=== PATIENT | male | born 1960 | race Caucasian/White ===

== ENCOUNTER 2016-06-17 22:02 | Inpatient (IN) | payer MEDICAID ==
[~2016-06-17] VITALS: Ht 177.8 cm; Wt 86.2 kg
[~2016-06-17 22:02] MED LIST: DOCU250C91 PO; LITH300C3 PO; SERT100T12 PO
[2016-06-17] MEDS ORDERED: MAG HYDROX/AL HYDROX/SIMETH ES 30 ML SUSPENSION UDCUP PO PRN (22:45)
[2016-06-17] MEDS ORDERED: MAGNESIUM HYDROXIDE SUSPENSION 30 ML UDCUP PO PRN (22:45)
[2016-06-17] MEDS ORDERED: HALOPERIDOL 5 MG TABLET PO PRN (22:45)
[2016-06-17] MEDS ORDERED: ACETAMINOPHEN 325 MG TABLET PO PRN (22:45)
[2016-06-17 22:55] LABS: BASOPHILS % (AUTO) 0.8 % (0.0-2.0); EOSINOPHILS % (AUTO) 1.6 % (1.0-6.0); HEMATOCRIT 44.4 % (41-53); HEMOGLOBIN 15.1 g/dL (13.5-17.5); LYMPHOCYTES # (AUTO) 2.2 K/uL (1.0-4.8); LYMPHOCYTES % (AUTO) 22.8 % (22.0-44.0); MEAN CORPUSCULAR VOLUME 88 fL (80-100); MONOCYTES # (AUTO) 0.8 K/uL (0.1-1.0); MONOCYTES % (AUTO) 8.7 % (2.0-9.0); NEUTROPHILS # (AUTO) 6.3 K/uL (1.8-7.7); NEUTROPHILS % (AUTO) 66.1 % (40.0-70.0); PLATELET COUNT (AUTO) 281 K/uL (150-450); RED BLOOD CELL COUNT(AUTO) 5.03 MIL/uL (4.50-5.90); RED CELL DISTRIBUTION WIDTH 12.4 % (11.5-14.5); WHITE BLOOD COUNT (AUTO) 9.5 K/uL (4.5-11.0)
[2016-06-17 23:05] LABS: ANION GAP 6 mmol/L (8-16); CALCIUM, TOTAL 8.3 mg/dL (8.8-10.5); CARBON DIOXIDE 30 mmol/L (22-29); CHLORIDE 99 mmol/L (98-107); CREATININE 1.08 mg/dL (0.60-1.30); GLOMERULAR FILTR. RATE CALC > 60 mL/min (>60); POTASSIUM 3.8 mmol/L (3.5-5.1); SODIUM SERUM 135 mmol/L (136-145); UREA NITROGEN, BLOOD 27 mg/dL (7-18)
[2016-06-17 23:10] LABS: ALANINE AMINOTRANSFERASE 21 U/L (12-78); ASPARTATE AMINOTRANSFERASE 12 U/L (15-37); BILIRUBIN,TOTAL 0.2 mg/dL (0.1-1.0); TOTAL PROTEIN, SERUM 6.9 g/dL (6.4-8.2)
[2016-06-17 23:11] LABS: ALBUMIN 3.8 g/dL (3.4-5.0)
[2016-06-17 23:21] LABS: LITHIUM < 0.20 mmol/L (0.60-1.20)
[2016-06-18 00:45] VITALS: BP 146/85
[2016-06-18] MEDS: ZOLPIDEM TARTRATE 10 MG TABLET PO PRN ×2 (01:06→23:42)
[2016-06-18 08:01] VITALS: BP 113/82
[2016-06-18] MEDS: LORazepam 2 MG TABLET PO PRN ×2 (13:40→22:06)
[2016-06-18 16:17] VITALS: BP 106/69
[2016-06-19 10:10] VITALS: BP 119/82
[2016-06-19] MEDS: LORazepam 2 MG TABLET PO PRN ×2 (13:12→21:10)
[2016-06-19] MEDS: LITHIUM CARBONATE 300 MG CAPSULE PO SCH (17:19)
[2016-06-19 18:03] VITALS: BP 123/78
[2016-06-19] MEDS: OLANZapine 10 MG TABLET PO SCH (20:25)
[2016-06-19] MEDS: ZOLPIDEM TARTRATE 10 MG TABLET PO PRN (23:55)
[2016-06-20 00:05] VITALS: BP 123/80
[2016-06-20] MEDS: LORazepam 2 MG TABLET PO PRN ×3 (09:17→21:11)
[2016-06-20] MEDS: LITHIUM CARBONATE 300 MG CAPSULE PO SCH ×2 (09:18→16:29)
[2016-06-20] MEDS: SERTRALINE HCL 100 MG TABLET PO SCH (09:18)
[2016-06-20 09:24] VITALS: BP 129/71
[2016-06-20 16:06] VITALS: BP 116/80
[2016-06-20] MEDS: OLANZapine 10 MG TABLET PO SCH (20:09)
[2016-06-20] MEDS: ZOLPIDEM TARTRATE 10 MG TABLET PO PRN (22:30)
[2016-06-21 08:00] VITALS: BP 106/65
[2016-06-21] MEDS: LORazepam 2 MG TABLET PO PRN ×3 (08:59→22:30)
[2016-06-21] MEDS: LITHIUM CARBONATE 300 MG CAPSULE PO SCH ×2 (08:59→16:35)
[2016-06-21] MEDS: SERTRALINE HCL 100 MG TABLET PO SCH (08:59)
[2016-06-21] MEDS: MULTIVITAMINS WITH MINERALS, THERAPEUTIC TABLET PO SCH (08:59)
[2016-06-21 16:45] VITALS: BP 125/77
[2016-06-21] MEDS: OLANZapine 10 MG TABLET PO SCH (20:22)
[2016-06-21] MEDS: ZOLPIDEM TARTRATE 10 MG TABLET PO PRN (23:44)
[2016-06-22] VITALS: BP 118/79
[2016-06-22] MEDS: LITHIUM CARBONATE 300 MG CAPSULE PO SCH (09:11)
[2016-06-22] MEDS: SERTRALINE HCL 100 MG TABLET PO SCH (09:11)
[2016-06-22] MEDS: LORazepam 2 MG TABLET PO PRN (09:11)
[2016-06-22] MEDS: MULTIVITAMINS WITH MINERALS, THERAPEUTIC TABLET PO SCH (09:11)
[2016-06-22 09:47] VITALS: BP 133/65
[2016-06-22] MEDS ORDERED: OLAN10TA3 PO (10:42)
[2016-06-22] MEDS ORDERED: MV-M1TAB2 PO (10:44)
== END 2016-06-22 14:17 | disposition home or self-care (01) | DRG 750 ==
LOC: EMS 22:03 → 3EI 22:30
PROVIDERS: ADMIT Psychiatry & Neurology Psychiatry; ATTEND Psychiatry & Neurology Psychiatry
DX: F25.9 Schizoaffective disorder, unspecified (principal); R45.851 Suicidal ideations; I10 Essential (primary) hypertension; B86 Scabies; F12.90 Cannabis use, unspecified, uncomplicated; E78.5 Hyperlipidemia, unspecified; A60.00 Herpesviral infection of urogenital system, unspecified; F19.90 Other psychoactive substance use, unspecified, uncomplicated; B19.20 Unspecified viral hepatitis C without hepatic coma; F31.9 Bipolar disorder, unspecified; K21.9 Gastro-esophageal reflux disease without esophagitis; K59.00 Constipation, unspecified; Z87.891 Personal history of nicotine dependence; Z79.899 Other long term (current) drug therapy; Z98.890 Other specified postprocedural states; Z87.81 Personal history of (healed) traumatic fracture
CPT/HCPCS: 99285; G0480

== ENCOUNTER 2016-07-07 20:17 | Inpatient (IN) | payer MEDICAID ==
[~2016-07-07] VITALS: Ht 175.3 cm; Wt 86.4 kg
[~2016-07-07 20:17] MED LIST changes: -DOCU250C91 PO; +MV-M1TAB2 PO; +OLAN10TA3 PO
[2016-07-07 21:00] LABS: BASOPHILS % (AUTO) 0.7 % (0.0-2.0); HEMATOCRIT 40.8 % (41-53); HEMOGLOBIN 13.5 g/dL (13.5-17.5); LYMPHOCYTES % (AUTO) 23.8 % (22.0-44.0); MEAN CORPUSCULAR HEMOGLOBIN 29.3 pg (26.0-34.0); MEAN CORPUSCULAR HGB CONC 33.2 G/dL (31.0-37.0); MEAN CORPUSCULAR VOLUME 88 fL (80-100); MONOCYTES # (AUTO) 0.6 K/uL (0.1-1.0); MONOCYTES % (AUTO) 6.8 % (2.0-9.0); NEUTROPHILS # (AUTO) 5.5 K/uL (1.8-7.7); NEUTROPHILS % (AUTO) 66.7 % (40.0-70.0); PLATELET COUNT (AUTO) 293 K/uL (150-450); RED BLOOD CELL COUNT(AUTO) 4.61 MIL/uL (4.50-5.90); RED CELL DISTRIBUTION WIDTH 12.7 % (11.5-14.5); WHITE BLOOD COUNT (AUTO) 8.3 K/uL (4.5-11.0)
[2016-07-07 21:20] LABS: ANION GAP 6 mmol/L (8-16); CALCIUM, TOTAL 8.7 mg/dL (8.8-10.5); CARBON DIOXIDE 31 mmol/L (22-29); CHLORIDE 102 mmol/L (98-107); CREATININE 0.96 mg/dL (0.60-1.30); GLOMERULAR FILTR. RATE CALC > 60 mL/min (>60); POTASSIUM 3.4 mmol/L (3.5-5.1); SODIUM SERUM 139 mmol/L (136-145); UREA NITROGEN, BLOOD 19 mg/dL (7-18)
[2016-07-07 21:26] LABS: ALANINE AMINOTRANSFERASE 22 U/L (12-78); ALBUMIN 3.4 g/dL (3.4-5.0); ASPARTATE AMINOTRANSFERASE 14 U/L (15-37); BILIRUBIN,TOTAL 0.1 mg/dL (0.1-1.0); TOTAL PROTEIN, SERUM 6.6 g/dL (6.4-8.2)
[2016-07-07] MEDS ORDERED: OLANZapine 5 MG RAPDIS TABLET PO PRN (21:45)
[2016-07-07] MEDS ORDERED: PERTUSS(ACELL),DIPH,TET VAC/PF 0.5 ML VIAL IM ONE (21:45)
[2016-07-08 00:33] VITALS: BP 131/83
[2016-07-08] MEDS: LORazepam 2 MG TABLET PO PRN ×3 (00:36→21:02)
[2016-07-08 08:30] VITALS: BP 111/71
[2016-07-08] MEDS: DOCUSATE SODIUM 250 MG CAPSULE PO SCH (17:03)
[2016-07-08] MEDS: NYSTATIN 30 GM CREAM TP SCH (17:09)
[2016-07-08 18:38] VITALS: BP 122/74
[2016-07-08] MEDS: SIMVASTATIN 40 MG TABLET PO SCH (20:48)
[2016-07-08] MEDS: ZOLPIDEM TARTRATE 10 MG TABLET PO PRN (23:25)
[2016-07-09 08:07] VITALS: BP 115/86
[2016-07-09] MEDS: LORazepam 2 MG TABLET PO PRN ×2 (08:50→20:58)
[2016-07-09] MEDS: DOCUSATE SODIUM 250 MG CAPSULE PO SCH ×2 (08:51→17:06)
[2016-07-09] MEDS: NYSTATIN 30 GM CREAM TP SCH ×2 (09:00→17:06)
[2016-07-09] MEDS ORDERED: SERTRALINE HCL 100 MG TABLET PO SCH (11:15)
[2016-07-09 16:46] VITALS: BP 110/69
[2016-07-09] MEDS: LITHIUM CARBONATE 300 MG CAPSULE PO SCH (17:06)
[2016-07-09] MEDS: ZOLPIDEM TARTRATE 10 MG TABLET PO PRN (20:58)
[2016-07-09] MEDS: OLANZapine 10 MG TABLET PO SCH (20:58)
[2016-07-09] MEDS: SIMVASTATIN 40 MG TABLET PO SCH (20:58)
[2016-07-10 08:07] VITALS: BP 102/56
[2016-07-10] MEDS: NYSTATIN 30 GM CREAM TP SCH ×2 (09:00→16:12)
[2016-07-10] MEDS: DOCUSATE SODIUM 250 MG CAPSULE PO SCH ×2 (10:26→16:12)
[2016-07-10] MEDS: LITHIUM CARBONATE 300 MG CAPSULE PO SCH ×2 (10:27→16:12)
[2016-07-10] MEDS: SERTRALINE HCL 50 MG TABLET PO SCH (10:27)
[2016-07-10] MEDS: LORazepam 2 MG TABLET PO PRN ×2 (10:28→17:09)
[2016-07-10] MEDS: OLANZapine 10 MG TABLET PO SCH (20:22)
[2016-07-10] MEDS: SIMVASTATIN 40 MG TABLET PO SCH (20:23)
[2016-07-10 21:45] VITALS: BP 106/64
[2016-07-10] MEDS: ZOLPIDEM TARTRATE 10 MG TABLET PO PRN (21:54)
[2016-07-11] MEDS: DOCUSATE SODIUM 250 MG CAPSULE PO SCH ×2 (08:15→16:26)
[2016-07-11] MEDS: NYSTATIN 30 GM CREAM TP SCH ×2 (08:15→16:30)
[2016-07-11] MEDS: LITHIUM CARBONATE 300 MG CAPSULE PO SCH ×2 (08:15→16:26)
[2016-07-11] MEDS: SERTRALINE HCL 50 MG TABLET PO SCH (08:15)
[2016-07-11] MEDS: LORazepam 2 MG TABLET PO PRN ×2 (08:16→20:12)
[2016-07-11 10:20] VITALS: BP 133/74
[2016-07-11 16:49] VITALS: BP 104/64
[2016-07-11] MEDS: OLANZapine 10 MG TABLET PO SCH (20:11)
[2016-07-11] MEDS: SIMVASTATIN 40 MG TABLET PO SCH (20:11)
[2016-07-12] MEDS: SERTRALINE HCL 50 MG TABLET PO SCH (08:44)
[2016-07-12] MEDS: LITHIUM CARBONATE 300 MG CAPSULE PO SCH ×2 (08:45→16:27)
[2016-07-12] MEDS: DOCUSATE SODIUM 250 MG CAPSULE PO SCH ×2 (08:45→16:26)
[2016-07-12] MEDS: NYSTATIN 30 GM CREAM TP SCH ×2 (08:50→16:27)
[2016-07-12] MEDS: LORazepam 2 MG TABLET PO PRN ×3 (08:51→22:41)
[2016-07-12 10:02] VITALS: BP 112/67
[2016-07-12 17:03] VITALS: BP 120/71
[2016-07-12] MEDS: OLANZapine 10 MG TABLET PO SCH (21:00)
[2016-07-12] MEDS: SIMVASTATIN 40 MG TABLET PO SCH (21:20)
[2016-07-13] MEDS: SERTRALINE HCL 50 MG TABLET PO SCH (08:33)
[2016-07-13] MEDS: LITHIUM CARBONATE 300 MG CAPSULE PO SCH ×2 (08:33→17:24)
[2016-07-13] MEDS: DOCUSATE SODIUM 250 MG CAPSULE PO SCH ×2 (08:33→17:24)
[2016-07-13] MEDS: LORazepam 2 MG TABLET PO PRN ×3 (08:35→21:58)
[2016-07-13 12:01] VITALS: BP 122/84
[2016-07-13] MEDS: NYSTATIN 30 GM CREAM TP SCH ×2 (14:08→17:24)
[2016-07-13 16:47] VITALS: BP 124/68
[2016-07-13] MEDS: OLANZapine 10 MG TABLET PO SCH (21:00)
[2016-07-13] MEDS: SIMVASTATIN 40 MG TABLET PO SCH (21:21)
[2016-07-13] MEDS: ZOLPIDEM TARTRATE 10 MG TABLET PO PRN (22:54)
[2016-07-14] MEDS ORDERED: DOCU250C91 PO (09:02)
[2016-07-14] MEDS ORDERED: NYST15CR2 TP (09:05)
[2016-07-14] MEDS ORDERED: SIMV-261 PO (09:06)
[2016-07-14] MEDS: DOCUSATE SODIUM 250 MG CAPSULE PO SCH (09:06)
[2016-07-14] MEDS: LITHIUM CARBONATE 300 MG CAPSULE PO SCH (09:07)
[2016-07-14] MEDS: SERTRALINE HCL 50 MG TABLET PO SCH (09:08)
[2016-07-14] MEDS: LORazepam 2 MG TABLET PO PRN (09:08)
[2016-07-14] MEDS: NYSTATIN 30 GM CREAM TP SCH (09:09)
[2016-07-14 10:17] VITALS: BP 123/81
== END 2016-07-14 13:44 | disposition home or self-care (01) | DRG 750 ==
LOC: EEVIPCON 20:19 → EMS 20:19 → 3EI 22:47
PROVIDERS: ADMIT Psychiatry & Neurology Psychiatry; ATTEND Psychiatry & Neurology Psychiatry
DX: F25.9 Schizoaffective disorder, unspecified (principal); F22 Delusional disorders; I10 Essential (primary) hypertension; F32.9 Major depressive disorder, single episode, unspecified; B35.3 Tinea pedis; F12.90 Cannabis use, unspecified, uncomplicated; F15.90 Other stimulant use, unspecified, uncomplicated; K21.9 Gastro-esophageal reflux disease without esophagitis; E78.5 Hyperlipidemia, unspecified; B19.20 Unspecified viral hepatitis C without hepatic coma; Z86.19 Personal history of other infectious and parasitic diseases; Z79.52 Long term (current) use of systemic steroids
CPT/HCPCS: 87081; 90471; 90715; 99285; G0480

== ENCOUNTER 2016-07-17 08:08 | Inpatient (IN) | payer MEDICAID ==
[~2016-07-17] VITALS: Ht 177.8 cm; Wt 85.7 kg
[~2016-07-17 08:08] MED LIST changes: +DOCU250C91 PO; -MV-M1TAB2 PO; +NYST15CR2 TP; +SIMV-261 PO
[2016-07-17 08:30] LABS: BASOPHILS # (AUTO) 0.04 K/uL (0.00-0.20); BASOPHILS % (AUTO) 0.5 % (0.0-2.0); EOSINOPHILS # (AUTO) 0.07 K/uL (0.00-0.70); EOSINOPHILS % (AUTO) 0.95 % (1.0-6.0); HEMOGLOBIN 15.6 g/dL (13.5-17.5); LYMPHOCYTES # (AUTO) 1.3 K/uL (1.0-4.8); LYMPHOCYTES % (AUTO) 16.9 % (22.0-44.0); MEAN CORPUSCULAR HEMOGLOBIN 29.7 pg (26.0-34.0); MEAN CORPUSCULAR HGB CONC 33.8 G/dL (31.0-37.0); MEAN CORPUSCULAR VOLUME 88 fL (80-100); MONOCYTES # (AUTO) 0.4 K/uL (0.1-1.0); MONOCYTES % (AUTO) 5.8 % (2.0-9.0); NEUTROPHILS # (AUTO) 5.8 K/uL (1.8-7.7); NEUTROPHILS % (AUTO) 75.9 % (40.0-70.0); PLATELET COUNT (AUTO) 271 K/uL (150-450); RED BLOOD CELL COUNT(AUTO) 5.24 MIL/uL (4.50-5.90); RED CELL DISTRIBUTION WIDTH 12.9 % (11.5-14.5); WHITE BLOOD COUNT (AUTO) 7.7 K/uL (4.5-11.0)
[2016-07-17 08:51] LABS: LITHIUM < 0.20 mmol/L (0.60-1.20)
[2016-07-17 08:53] LABS: ANION GAP 6 mmol/L (8-16); CALCIUM, TOTAL 8.7 mg/dL (8.8-10.5); CARBON DIOXIDE 31 mmol/L (22-29); CHLORIDE 104 mmol/L (98-107); CREATININE 0.97 mg/dL (0.60-1.30); GLOMERULAR FILTR. RATE CALC > 60 mL/min (>60); POTASSIUM 4.3 mmol/L (3.5-5.1); SODIUM SERUM 141 mmol/L (136-145); UREA NITROGEN, BLOOD 18 mg/dL (7-18)
[2016-07-17 08:56] LABS: ALANINE AMINOTRANSFERASE 29 U/L (12-78); ALBUMIN 3.9 g/dL (3.4-5.0); ASPARTATE AMINOTRANSFERASE 16 U/L (15-37); BILIRUBIN,TOTAL 0.6 mg/dL (0.1-1.0); TOTAL PROTEIN, SERUM 7.1 g/dL (6.4-8.2)
[2016-07-17] MEDS ORDERED: HALOPERIDOL 5 MG TABLET PO PRN (09:00)
[2016-07-17 10:08] VITALS: BP 135/84
[2016-07-17] MEDS: LORazepam 2 MG TABLET PO PRN ×2 (12:33→20:51)
[2016-07-17] MEDS: DOCUSATE SODIUM 250 MG CAPSULE PO SCH (16:00)
[2016-07-17 16:19] VITALS: BP 128/74
[2016-07-17] MEDS: SIMVASTATIN 40 MG TABLET PO SCH (20:18)
[2016-07-18 08:00] VITALS: BP 133/81
[2016-07-18] MEDS: DOCUSATE SODIUM 250 MG CAPSULE PO SCH ×2 (08:52→16:39)
[2016-07-18] MEDS: LORazepam 2 MG TABLET PO PRN ×2 (08:52→16:55)
[2016-07-18] MEDS: LITHIUM CARBONATE 300 MG CAPSULE PO SCH (17:47)
[2016-07-18 18:49] VITALS: BP 116/60
[2016-07-18] MEDS: SIMVASTATIN 40 MG TABLET PO SCH (20:43)
[2016-07-18] MEDS: OLANZapine 10 MG TABLET PO SCH (21:00)
[2016-07-19] MEDS: LORazepam 2 MG TABLET PO PRN ×3 (02:42→20:12)
[2016-07-19] MEDS: ZOLPIDEM TARTRATE 10 MG TABLET PO PRN ×2 (02:42→21:31)
[2016-07-19 04:20] VITALS: BP 120/75
[2016-07-19 08:00] VITALS: BP 127/77
[2016-07-19] MEDS: DOCUSATE SODIUM 250 MG CAPSULE PO SCH ×2 (09:00→16:04)
[2016-07-19] MEDS: LITHIUM CARBONATE 300 MG CAPSULE PO SCH ×2 (09:13→16:04)
[2016-07-19] MEDS: SERTRALINE HCL 50 MG TABLET PO SCH (09:13)
[2016-07-19 16:30] VITALS: BP 119/80
[2016-07-19] MEDS: SIMVASTATIN 40 MG TABLET PO SCH (20:12)
[2016-07-19] MEDS: OLANZapine 10 MG TABLET PO SCH (20:12)
[2016-07-20] MEDS: LORazepam 2 MG TABLET PO PRN ×2 (05:52→11:02)
[2016-07-20] MEDS: LITHIUM CARBONATE 300 MG CAPSULE PO SCH (08:51)
[2016-07-20] MEDS: SERTRALINE HCL 50 MG TABLET PO SCH (08:51)
[2016-07-20 08:59] VITALS: BP 120/83
[2016-07-20] MEDS: DOCUSATE SODIUM 250 MG CAPSULE PO SCH (09:00)
[2016-07-20] MEDS ORDERED: LITH300C3 PO (12:42)
[2016-07-20] MEDS ORDERED: OLAN10TA3 PO (12:43)
[2016-07-20] MEDS ORDERED: DOCU250C91 PO (13:30)
[2016-07-20] MEDS ORDERED: SIMV-261 PO (13:30)
== END 2016-07-20 13:47 | disposition home or self-care (01) | DRG 750 ==
LOC: EMS 08:10 → 3EI 09:48
PROVIDERS: ADMIT Psychiatry & Neurology Psychiatry; ATTEND Psychiatry & Neurology Psychiatry
DX: F25.9 Schizoaffective disorder, unspecified (principal); R45.851 Suicidal ideations; F32.9 Major depressive disorder, single episode, unspecified; B19.20 Unspecified viral hepatitis C without hepatic coma; F12.90 Cannabis use, unspecified, uncomplicated; E78.5 Hyperlipidemia, unspecified; K21.9 Gastro-esophageal reflux disease without esophagitis; K59.00 Constipation, unspecified; Z91.5 Personal history of self-harm; Z79.899 Other long term (current) drug therapy
CPT/HCPCS: 87081; 99285; G0480

== ENCOUNTER 2016-08-30 22:44 | Inpatient (IN) | payer MEDICAID ==
[~2016-08-30] VITALS: Ht 177.8 cm; Wt 84.0 kg
[~2016-08-30 22:44] MED LIST changes: -NYST15CR2 TP; -SIMV-261 PO; +SIMV40 PO
[2016-08-30] MEDS ORDERED: DIAZ10 PO (23:05)
[2016-08-30 23:19] LABS: BASOPHILS % (AUTO) 0.1 % (0.0-2.0); EOSINOPHILS % (AUTO) 1.2 % (1.0-6.0); HEMATOCRIT 40.8 % (41-53); HEMOGLOBIN 13.5 g/dL (13.5-17.5); LYMPHOCYTES # (AUTO) 1.6 K/uL (1.0-4.8); MEAN CORPUSCULAR VOLUME 88 fL (80-100); MONOCYTES # (AUTO) 0.6 K/uL (0.1-1.0); NEUTROPHILS # (AUTO) 11.9 K/uL (1.8-7.7); NEUTROPHILS % (AUTO) 83.7 % (40.0-70.0); PLATELET COUNT (AUTO) 303 K/uL (150-450); RED BLOOD CELL COUNT(AUTO) 4.63 MIL/uL (4.50-5.90); RED CELL DISTRIBUTION WIDTH 12.7 % (11.5-14.5); WHITE BLOOD COUNT (AUTO) 14.2 K/uL (4.5-11.0)
[2016-08-30 23:34] LABS: ANION GAP 6 mmol/L (8-16); CALCIUM, TOTAL 8.4 mg/dL (8.8-10.5); CARBON DIOXIDE 30 mmol/L (22-29); CHLORIDE 102 mmol/L (98-107); CREATININE 0.92 mg/dL (0.60-1.30); GLOMERULAR FILTR. RATE CALC > 60 mL/min (>60); POTASSIUM 3.6 mmol/L (3.5-5.1); SODIUM SERUM 138 mmol/L (136-145); UREA NITROGEN, BLOOD 19 mg/dL (7-18)
[2016-08-30 23:41] LABS: ALANINE AMINOTRANSFERASE 19 U/L (12-78); ALBUMIN 3.3 g/dL (3.4-5.0); ASPARTATE AMINOTRANSFERASE 15 U/L (15-37); BILIRUBIN,TOTAL 0.2 mg/dL (0.1-1.0); TOTAL PROTEIN, SERUM 6.4 g/dL (6.4-8.2)
[2016-08-31 00:10] LABS: LITHIUM < 0.20 mmol/L (0.60-1.20)
[2016-08-31] MEDS ORDERED: LORazepam 2 MG TABLET PO ONE (01:00)
[2016-08-31] MEDS ORDERED: HALOPERIDOL 5 MG TABLET PO PRN (01:30)
[2016-08-31 02:29] LABS: APPEARANCE,URINE CLEAR (CLEAR); GLUCOSE, URINE (UA) NEGATIVE (NEGATIVE); KETONES,URINE NEGATIVE (NEGATIVE); LEUKOCYTE ESTERASE ,URINE NEGATIVE (NEGATIVE); OCCULT BLOOD,URINE NEGATIVE (NEGATIVE); PH,URINE 5.5 (5.0-8.0); PROTEIN,URINE NEGATIVE (NEGATIVE)
[2016-08-31 02:40] LABS: ADD UA MICROSCOPIC NO
[2016-08-31 03:13] VITALS: BP 138/75
[2016-08-31 05:54] VITALS: BP 106/51
[2016-08-31] MEDS: DOCUSATE SODIUM 250 MG CAPSULE PO SCH (09:18)
[2016-08-31] MEDS: SERTRALINE HCL 50 MG TABLET PO SCH (09:19)
[2016-08-31 16:13] VITALS: BP_SYST 105; BP_SYST 115; BP_DIAS 65
[2016-08-31] MEDS ORDERED: ACETAMINOPHEN 325 MG TABLET PO PRN (16:15)
[2016-08-31] MEDS ORDERED: GuaiFENesin/D-METHORPHAN [SUGAR-FREE] 200-20MG/10 ML SYRUP UDCUP PO PRN (16:15)
[2016-08-31] MEDS ORDERED: AZITHROMYCIN 250 MG TABLET PO ONE (21:00)
[2016-08-31] MEDS: LORazepam 2 MG TABLET PO PRN (21:01)
[2016-09-01 07:18] VITALS: BP 109/70
[2016-09-01 08:33] VITALS: BP 108/68
[2016-09-01] MEDS: DOCUSATE SODIUM 250 MG CAPSULE PO SCH ×2 (09:00→09:46)
[2016-09-01] MEDS: AZITHROMYCIN 250 MG TABLET PO SCH (09:46)
[2016-09-01] MEDS: SERTRALINE HCL 50 MG TABLET PO SCH (09:46)
[2016-09-01] MEDS: LORazepam 2 MG TABLET PO PRN ×3 (11:01→21:43)
[2016-09-01] MEDS ORDERED: DOCUSATE SODIUM 250 MG CAPSULE PO PRN (11:30)
[2016-09-01] MEDS: LOPERAMIDE HCL 2 MG CAPSULE PO PRN ×2 (13:30→16:19)
[2016-09-01 16:17] VITALS: BP_SYST 112; BP_SYST 117; BP_DIAS 65; BP_DIAS 74
[2016-09-02 07:24] VITALS: BP 114/79
[2016-09-02] MEDS: AZITHROMYCIN 250 MG TABLET PO SCH (09:14)
[2016-09-02] MEDS: SERTRALINE HCL 50 MG TABLET PO SCH (09:15)
[2016-09-02 10:24] VITALS: BP 108/66
[2016-09-02] MEDS: LORazepam 2 MG TABLET PO PRN ×2 (13:02→21:15)
[2016-09-02 16:30] VITALS: BP 125/77
[2016-09-03] MEDS: ZOLPIDEM TARTRATE 10 MG TABLET PO PRN ×2 (00:15→22:53)
[2016-09-03 00:37] VITALS: BP 105/69
[2016-09-03 08:59] VITALS: BP 102/66
[2016-09-03] MEDS: AZITHROMYCIN 250 MG TABLET PO SCH (09:12)
[2016-09-03] MEDS: SERTRALINE HCL 50 MG TABLET PO SCH (09:12)
[2016-09-03] MEDS: LORazepam 2 MG TABLET PO PRN (11:31)
[2016-09-03 16:00] VITALS: BP 106/64
[2016-09-03] MEDS ORDERED: HYPROMELLOSE 0.5% 15 ML OPHTHALMIC SOLUTION OU PRN (16:00)
[2016-09-04 00:21] VITALS: BP 111/68
[2016-09-04] MEDS: LORazepam 2 MG TABLET PO PRN ×3 (00:33→21:53)
[2016-09-04] MEDS: SERTRALINE HCL 50 MG TABLET PO SCH (09:23)
[2016-09-04] MEDS: AZITHROMYCIN 250 MG TABLET PO SCH (09:23)
[2016-09-04 09:31] VITALS: BP 108/63
[2016-09-04 16:00] VITALS: BP 100/68
[2016-09-05 00:05] VITALS: BP 110/60
[2016-09-05] MEDS: ZOLPIDEM TARTRATE 10 MG TABLET PO PRN (00:07)
[2016-09-05 08:43] VITALS: BP 103/57
[2016-09-05] MEDS: SERTRALINE HCL 50 MG TABLET PO SCH (09:27)
[2016-09-05] MEDS ORDERED: PILO1OS OP (09:47)
[2016-09-05] MEDS ORDERED: HYPR15DR23 OU (09:55)
== END 2016-09-05 11:45 | disposition home or self-care (01) | DRG 750 ==
LOC: EMS 22:45 → B2S 08-31 01:30
DX: F25.1 Schizoaffective disorder, depressive type (principal); B00.9 Herpesviral infection, unspecified; R45.851 Suicidal ideations; I10 Essential (primary) hypertension; J44.9 Chronic obstructive pulmonary disease, unspecified; F12.90 Cannabis use, unspecified, uncomplicated; B19.20 Unspecified viral hepatitis C without hepatic coma; K21.9 Gastro-esophageal reflux disease without esophagitis; E78.00 Pure hypercholesterolemia, unspecified; Z72.89 Other problems related to lifestyle; N40.0 Benign prostatic hyperplasia without lower urinary tract symptoms; K59.00 Constipation, unspecified; E78.5 Hyperlipidemia, unspecified; Z53.29 Procedure and treatment not carried out because of patient's decision for other reasons; Z59.0 Homelessness; Z79.899 Other long term (current) drug therapy; Z91.5 Personal history of self-harm; Z71.51 Drug abuse counseling and surveillance of drug abuser; F15.90 Other stimulant use, unspecified, uncomplicated
CPT/HCPCS: 99285; G0480

== ENCOUNTER 2016-09-13 02:53 | Inpatient (IN) | payer MEDICAID ==
[~2016-09-13] VITALS: Ht 180.3 cm; Wt 82.5 kg
[~2016-09-13 02:53] MED LIST changes: -DOCU250C91 PO; +HYPR15DR23 OU; -LITH300C3 PO; -OLAN10TA3 PO; -SIMV40 PO
[2016-09-13] MEDS ORDERED: DIAZ10 PO (03:11)
[2016-09-13 03:31] LABS: BASOPHILS # (AUTO) 0.04 K/uL (0.00-0.20); BASOPHILS % (AUTO) 0.6 % (0.0-2.0); EOSINOPHILS # (AUTO) 0.16 K/uL (0.00-0.70); HEMATOCRIT 43.1 % (41-53); HEMOGLOBIN 14.5 g/dL (13.5-17.5); LYMPHOCYTES # (AUTO) 1.9 K/uL (1.0-4.8); LYMPHOCYTES % (AUTO) 24.1 % (22.0-44.0); MEAN CORPUSCULAR HEMOGLOBIN 29.3 pg (26.0-34.0); MEAN CORPUSCULAR HGB CONC 33.7 G/dL (31.0-37.0); MEAN CORPUSCULAR VOLUME 87 fL (80-100); MONOCYTES # (AUTO) 0.6 K/uL (0.1-1.0); MONOCYTES % (AUTO) 6.9 % (2.0-9.0); NEUTROPHILS # (AUTO) 5.4 K/uL (1.8-7.7); NEUTROPHILS % (AUTO) 66.5 % (40.0-70.0); PLATELET COUNT (AUTO) 311 K/uL (150-450); RED BLOOD CELL COUNT(AUTO) 4.95 MIL/uL (4.50-5.90); RED CELL DISTRIBUTION WIDTH 13.5 % (11.5-14.5)
[2016-09-13 03:33] LABS: ANION GAP 8 mmol/L (8-16); CALCIUM, TOTAL 8.8 mg/dL (8.8-10.5); CARBON DIOXIDE 32 mmol/L (22-29); CHLORIDE 103 mmol/L (98-107); CREATININE 0.89 mg/dL (0.60-1.30); GLOMERULAR FILTR. RATE CALC > 60 mL/min (>60); POTASSIUM 3.6 mmol/L (3.5-5.1); SODIUM SERUM 143 mmol/L (136-145); UREA NITROGEN, BLOOD 21 mg/dL (7-18)
[2016-09-13 03:40] LABS: ALANINE AMINOTRANSFERASE 25 U/L (12-78); ALBUMIN 3.6 g/dL (3.4-5.0); ASPARTATE AMINOTRANSFERASE 15 U/L (15-37); BILIRUBIN,TOTAL 0.4 mg/dL (0.1-1.0); TOTAL PROTEIN, SERUM 7.1 g/dL (6.4-8.2)
[2016-09-13] MEDS: HALOPERIDOL LACTATE 5 MG/ML VIAL IM ONE ×2 (05:26→05:56)
[2016-09-13] MEDS ORDERED: LORazepam 2 MG TABLET PO PRN (06:45)
[2016-09-13] MEDS ORDERED: HALOPERIDOL 5 MG TABLET PO PRN (06:45)
[2016-09-13] MEDS ORDERED: QUEtiapine FUMARATE 25 MG TABLET PO PRN (10:00)
[2016-09-13 10:44] VITALS: BP 124/80
[2016-09-13] MEDS: SERTRALINE HCL 100 MG TABLET PO SCH (12:17)
[2016-09-13 18:01] VITALS: BP 128/76
[2016-09-13] MEDS: ZOLPIDEM TARTRATE 10 MG TABLET PO PRN (21:00)
[2016-09-14 08:02] VITALS: BP_SYST 18
[2016-09-14] MEDS: SERTRALINE HCL 100 MG TABLET PO SCH (09:16)
[2016-09-14] MEDS: DOCUSATE SODIUM 250 MG CAPSULE PO SCH (16:10)
[2016-09-14 16:40] VITALS: BP 121/76
[2016-09-14] MEDS: SIMVASTATIN 40 MG TABLET PO SCH (20:30)
[2016-09-14] MEDS: ZOLPIDEM TARTRATE 10 MG TABLET PO PRN (21:46)
[2016-09-15 08:30] VITALS: BP 116/75
[2016-09-15] MEDS: DOCUSATE SODIUM 250 MG CAPSULE PO SCH ×2 (09:00→16:39)
[2016-09-15] MEDS: SERTRALINE HCL 100 MG TABLET PO SCH (09:18)
[2016-09-15 16:55] VITALS: BP 126/70
[2016-09-15] MEDS: ZOLPIDEM TARTRATE 10 MG TABLET PO PRN (21:02)
[2016-09-15] MEDS: SIMVASTATIN 40 MG TABLET PO SCH (21:02)
[2016-09-16 08:05] VITALS: BP 108/70
[2016-09-16] MEDS: DOCUSATE SODIUM 250 MG CAPSULE PO SCH ×2 (09:21→16:07)
[2016-09-16] MEDS: SERTRALINE HCL 100 MG TABLET PO SCH (09:21)
[2016-09-16 16:16] VITALS: BP 122/69
[2016-09-16] MEDS: SIMVASTATIN 40 MG TABLET PO SCH ×2 (20:20→21:39)
[2016-09-16] MEDS: ZOLPIDEM TARTRATE 10 MG TABLET PO PRN (21:39)
[2016-09-17 08:05] VITALS: BP 132/72
[2016-09-17] MEDS: DOCUSATE SODIUM 250 MG CAPSULE PO SCH ×3 (09:00→17:00)
[2016-09-17] MEDS: SERTRALINE HCL 100 MG TABLET PO SCH (10:04)
[2016-09-17 16:00] VITALS: BP 128/77
[2016-09-17] MEDS: ZOLPIDEM TARTRATE 10 MG TABLET PO PRN (20:43)
[2016-09-17] MEDS: SIMVASTATIN 40 MG TABLET PO SCH (20:55)
[2016-09-18] MEDS: DOCUSATE SODIUM 250 MG CAPSULE PO SCH ×2 (09:00→16:48)
[2016-09-18] MEDS: SERTRALINE HCL 100 MG TABLET PO SCH (10:17)
[2016-09-18 14:24] VITALS: BP 139/78
[2016-09-18 20:24] VITALS: BP 129/87
[2016-09-18] MEDS: SIMVASTATIN 40 MG TABLET PO SCH (20:36)
[2016-09-18] MEDS: ZOLPIDEM TARTRATE 10 MG TABLET PO PRN (20:36)
[2016-09-19] MEDS: SERTRALINE HCL 100 MG TABLET PO SCH (08:46)
[2016-09-19] MEDS: DOCUSATE SODIUM 250 MG CAPSULE PO SCH (08:49)
[2016-09-19] MEDS ORDERED: SIMV-261 PO (11:05)
[2016-09-19] MEDS ORDERED: DOCU250C91 PO (11:05)
== END 2016-09-19 14:55 | disposition home or self-care (01) | DRG 750 ==
LOC: EMS 02:55 → 3EI 05:00
DX: F25.1 Schizoaffective disorder, depressive type (principal); R45.851 Suicidal ideations; B00.9 Herpesviral infection, unspecified; I10 Essential (primary) hypertension; F12.90 Cannabis use, unspecified, uncomplicated; B86 Scabies; J44.9 Chronic obstructive pulmonary disease, unspecified; B19.20 Unspecified viral hepatitis C without hepatic coma; K59.09 Other constipation; E78.5 Hyperlipidemia, unspecified; F41.9 Anxiety disorder, unspecified; K21.9 Gastro-esophageal reflux disease without esophagitis; E78.00 Pure hypercholesterolemia, unspecified; N40.0 Benign prostatic hyperplasia without lower urinary tract symptoms; Z79.899 Other long term (current) drug therapy; Z53.29 Procedure and treatment not carried out because of patient's decision for other reasons
CPT/HCPCS: 87081; 99285; G0480; J1630

== ENCOUNTER 2016-11-16 08:44 | Emergency (ER) | payer MEDICAID ==
[~2016-11-16] VITALS: Ht 177.8 cm; Wt 84.0 kg
[~2016-11-16 08:44] MED LIST changes: +DOCU250C91 PO; -HYPR15DR23 OU; +SIMV-261 PO
[2016-11-16 08:48] VITALS: BP 157/90
[2016-11-16] MEDS ORDERED: ACETAMINOPHEN 325 MG TABLET PO ONE (09:30)
== END 2016-11-16 09:35 | disposition home or self-care (01) ==
LOC: EMS 08:50
DX: R42 Dizziness and giddiness (principal); R51 Headache; F12.90 Cannabis use, unspecified, uncomplicated
CPT/HCPCS: 99283

== ENCOUNTER 2017-01-27 22:14 | Inpatient (IN) | payer MEDICAID ==
[~2017-01-27] VITALS: Ht 177.8 cm; Wt 84.4 kg
[~2017-01-27 22:14] MED LIST changes: -DOCU250C91 PO; +PARO20TA24 PO; -SERT100T12 PO; -SIMV-261 PO
[2017-01-27 22:38] LABS: BASOPHILS % (AUTO) 0.5 % (0.0-2.0); EOSINOPHILS % (AUTO) 1.5 % (1.0-6.0); HEMATOCRIT 44.4 % (41-53); HEMOGLOBIN 15.1 g/dL (13.5-17.5); LYMPHOCYTES # (AUTO) 2.4 K/uL (1.0-4.8); LYMPHOCYTES % (AUTO) 29.3 % (22.0-44.0); MEAN CORPUSCULAR HEMOGLOBIN 29.9 pg (26.0-34.0); MEAN CORPUSCULAR VOLUME 88 fL (80-100); MONOCYTES # (AUTO) 0.6 K/uL (0.1-1.0); MONOCYTES % (AUTO) 7.1 % (2.0-9.0); NEUTROPHILS # (AUTO) 5.1 K/uL (1.8-7.7); NEUTROPHILS % (AUTO) 61.6 % (40.0-70.0); PLATELET COUNT (AUTO) 291 K/uL (150-450); RED BLOOD CELL COUNT(AUTO) 5.04 MIL/uL (4.50-5.90); WHITE BLOOD COUNT (AUTO) 8.2 K/uL (4.5-11.0)
[2017-01-27 22:49] LABS: ANION GAP 6 mmol/L (8-16); CALCIUM, TOTAL 9.1 mg/dL (8.8-10.5); CARBON DIOXIDE 31 mmol/L (22-29); CHLORIDE 104 mmol/L (98-107); CREATININE 0.89 mg/dL (0.60-1.30); GLOMERULAR FILTR. RATE CALC > 60 mL/min (>60); SODIUM SERUM 141 mmol/L (136-145); UREA NITROGEN, BLOOD 23 mg/dL (7-18)
[2017-01-27 23:07] LABS: ALANINE AMINOTRANSFERASE 26 U/L (12-78); ALBUMIN 3.8 g/dL (3.4-5.0); ASPARTATE AMINOTRANSFERASE 18 U/L (15-37); BILIRUBIN,TOTAL 0.4 mg/dL (0.1-1.0); TOTAL PROTEIN, SERUM 7.1 g/dL (6.4-8.2)
[2017-01-27] MEDS ORDERED: HALOPERIDOL 5 MG TABLET PO PRN (23:30)
[2017-01-27] MEDS ORDERED: LOPERAMIDE HCL 2 MG CAPSULE PO PRN (23:30)
[2017-01-27] MEDS ORDERED: MAG HYDROX/AL HYDROX/SIMETH ES 30 ML SUSPENSION UDCUP PO PRN (23:30)
[2017-01-28 02:29] VITALS: BP 139/81
[2017-01-28 03:58] LABS: APPEARANCE,URINE CLEAR (CLEAR); GLUCOSE, URINE (UA) NEGATIVE (NEGATIVE); KETONES,URINE NEGATIVE (NEGATIVE); LEUKOCYTE ESTERASE ,URINE NEGATIVE (NEGATIVE); OCCULT BLOOD,URINE NEGATIVE (NEGATIVE); PROTEIN,URINE NEGATIVE (NEGATIVE)
[2017-01-28 04:06] LABS: ADD UA MICROSCOPIC NO
[2017-01-28 06:43] LABS: CHOL/HDL RATIO 3.5 (4.2-7.3)
[2017-01-28 08:39] VITALS: BP 123/84
[2017-01-28] MEDS ORDERED: ALBUTEROL SULFATE HFA 90 MCG/PUFF 8 GM INHALER IH PRN (09:15)
[2017-01-28] MEDS ORDERED: MAGNESIUM HYDROXIDE SUSPENSION 30 ML UDCUP PO PRN (09:15)
[2017-01-28] MEDS ORDERED: MAG HYDROX/AL HYDROX/SIMETH ES 30 ML SUSPENSION UDCUP PO PRN (09:15)
[2017-01-28] MEDS ORDERED: CloNIDine HCL 0.1 MG TABLET PO PRN (09:15)
[2017-01-28] MEDS ORDERED: LOPERAMIDE HCL 2 MG CAPSULE PO PRN (09:15)
[2017-01-28] MEDS ORDERED: PETROLATUM,WHITE 71 GM JELLY TP PRN (09:15)
[2017-01-28] MEDS ORDERED: ONDANSETRON HCL 4 MG TABLET PO PRN (09:15)
[2017-01-28] MEDS ORDERED: BACITRACIN 28.4 GM OINTMENT TP PRN (09:15)
[2017-01-28] MEDS ORDERED: ACETAMINOPHEN 325 MG TABLET PO PRN (09:15)
[2017-01-28] MEDS ORDERED: BENZOCAINE/MENTHOL LOZENGE [8 LOZENGES/PACKET] MM PRN (09:30)
[2017-01-28] MEDS: MINERAL OIL/PETROLATUM 120 GM CREAM TP SCH ×2 (10:38→17:12)
[2017-01-28] MEDS: PARoxetine HCL 20 MG TABLET PO SCH (12:40)
[2017-01-28] MEDS: LORazepam 2 MG TABLET PO PRN ×2 (12:57→22:03)
[2017-01-28 16:30] VITALS: BP 131/87
[2017-01-28] MEDS: ZOLPIDEM TARTRATE 10 MG TABLET PO PRN (22:03)
[2017-01-29 09:21] VITALS: BP 111/64
[2017-01-29] MEDS: PARoxetine HCL 20 MG TABLET PO SCH (09:42)
[2017-01-29] MEDS: MINERAL OIL/PETROLATUM 120 GM CREAM TP SCH ×2 (09:42→16:09)
[2017-01-29 16:30] VITALS: BP 126/78
[2017-01-29] MEDS: IBUPROFEN 600 MG TABLET PO PRN (20:16)
[2017-01-29] MEDS: LORazepam 2 MG TABLET PO PRN (20:16)
[2017-01-29] MEDS: CHLORHEXIDINE GLUCONATE 0.12% 15 ML UDCUP ORAL RINSE PO PRN (20:17)
[2017-01-29 20:18] VITALS: BP 128/75
[2017-01-30 08:05] VITALS: BP 127/76
[2017-01-30] MEDS: LORazepam 2 MG TABLET PO PRN (08:23)
[2017-01-30] MEDS: PARoxetine HCL 20 MG TABLET PO SCH (08:23)
[2017-01-30] MEDS: CHLORHEXIDINE GLUCONATE 0.12% 15 ML UDCUP ORAL RINSE PO PRN (08:26)
[2017-01-30] MEDS: MINERAL OIL/PETROLATUM 120 GM CREAM TP SCH ×2 (08:27→16:37)
[2017-01-30] MEDS: ZOLPIDEM TARTRATE 10 MG TABLET PO PRN (20:22)
[2017-01-30 22:44] VITALS: BP 119/77
[2017-01-31 08:00] VITALS: BP 133/75
[2017-01-31] MEDS: PARoxetine HCL 20 MG TABLET PO SCH (09:49)
[2017-01-31] MEDS: MINERAL OIL/PETROLATUM 120 GM CREAM TP SCH ×2 (09:49→17:04)
[2017-01-31] MEDS: IBUPROFEN 600 MG TABLET PO PRN (13:45)
[2017-01-31 18:43] VITALS: BP 128/74
[2017-01-31] MEDS: ZOLPIDEM TARTRATE 10 MG TABLET PO PRN (20:33)
[2017-02-01 08:30] VITALS: BP 123/79
[2017-02-01] MEDS: CHLORHEXIDINE GLUCONATE 0.12% 15 ML UDCUP ORAL RINSE PO PRN (09:19)
[2017-02-01] MEDS: MINERAL OIL/PETROLATUM 120 GM CREAM TP SCH ×2 (09:19→16:41)
[2017-02-01] MEDS: PARoxetine HCL 20 MG TABLET PO SCH (09:19)
[2017-02-01] MEDS: ZOLPIDEM TARTRATE 10 MG TABLET PO PRN (20:04)
[2017-02-01 21:10] VITALS: BP 111/73
[2017-02-02 08:30] VITALS: BP 132/77
[2017-02-02] MEDS ORDERED: MINE120C3 TP (08:36)
[2017-02-02] MEDS: PARoxetine HCL 20 MG TABLET PO SCH (09:37)
[2017-02-02] MEDS: MINERAL OIL/PETROLATUM 120 GM CREAM TP SCH (09:38)
== END 2017-02-02 10:43 | disposition home or self-care (01) | DRG 751 ==
LOC: EMS 22:16 → 3EC 01-28 00:58 → 3EI 01-29 18:32
PROVIDERS: ADMIT Psychiatry & Neurology Psychiatry; ATTEND Psychiatry & Neurology Child & Adolescent Psychiatry
DX: F33.3 Major depressive disorder, recurrent, severe with psychotic symptoms (principal); R45.851 Suicidal ideations; F15.20 Other stimulant dependence, uncomplicated; B18.2 Chronic viral hepatitis C; F12.90 Cannabis use, unspecified, uncomplicated; F17.200 Nicotine dependence, unspecified, uncomplicated; G47.00 Insomnia, unspecified; I10 Essential (primary) hypertension; J44.9 Chronic obstructive pulmonary disease, unspecified; K21.9 Gastro-esophageal reflux disease without esophagitis; K59.00 Constipation, unspecified; Z79.899 Other long term (current) drug therapy; Z82.49 Family history of ischemic heart disease and other diseases of the circulatory system; Z56.0 Unemployment, unspecified; Z71.51 Drug abuse counseling and surveillance of drug abuser; Z71.6 Tobacco abuse counseling
CPT/HCPCS: 87081; 99285; G0480

== ENCOUNTER 2017-02-15 16:58 | Inpatient (IN) | payer MEDICAID ==
[~2017-02-15] VITALS: Ht 177.8 cm; Wt 87.0 kg
[~2017-02-15 16:58] MED LIST changes: +DSS100 PO; +MINE120C3 TP; +NALT50TA6 PO; +OLAN10TA22 PO; +OLAN10TA3 PO; +OMEP20 PO; +PARO10TA71 PO
[2017-02-15] MEDS ORDERED: OLANZapine 5 MG RAPDIS TABLET PO PRN (18:45)
[2017-02-15] MEDS ORDERED: ZOLPIDEM TARTRATE 10 MG TABLET PO PRN (18:45)
[2017-02-15] MEDS: LITHIUM CARBONATE 300 MG CAPSULE PO SCH (20:21)
[2017-02-15] MEDS ORDERED: DIVALPROEX SODIUM 250 MG DR TABLET PO SCH (20:46)
[2017-02-15] MEDS: OLANZapine 7.5 MG TABLET PO SCH (21:00)
[2017-02-15] MEDS ORDERED: OLANZapine 10 MG TABLET PO SCH (21:00)
[2017-02-15] MEDS ORDERED: ACETAMINOPHEN 325 MG TABLET PO PRN (21:45)
[2017-02-15] MEDS ORDERED: IBUPROFEN 600 MG TABLET PO PRN (21:45)
[2017-02-15 21:51] VITALS: BP 104/67
[2017-02-16] MEDS ORDERED: BENZOCAINE/MENTHOL LOZENGE MM PRN (08:45)
[2017-02-16] MEDS ORDERED: ONDANSETRON HCL 4 MG TABLET PO PRN (08:45)
[2017-02-16] MEDS ORDERED: PETROLATUM,WHITE 71 GM JELLY TP PRN (08:45)
[2017-02-16] MEDS ORDERED: ALBUTEROL SULFATE HFA 90 MCG/PUFF 8 GM INHALER IH PRN (08:45)
[2017-02-16] MEDS ORDERED: MAG HYDROX/AL HYDROX/SIMETH ES 30 ML SUSPENSION UDCUP PO PRN (08:45)
[2017-02-16] MEDS ORDERED: BACITRACIN 28.4 GM OINTMENT TP PRN (08:45)
[2017-02-16] MEDS ORDERED: MAGNESIUM HYDROXIDE SUSPENSION 30 ML UDCUP PO PRN (08:45)
[2017-02-16] MEDS ORDERED: LOPERAMIDE HCL 2 MG CAPSULE PO PRN ×2 (08:45→13:15)
[2017-02-16] MEDS ORDERED: CloNIDine HCL 0.1 MG TABLET PO PRN (08:45)
[2017-02-16] MEDS: DOCUSATE SODIUM 100 MG CAPSULE PO SCH (09:00)
[2017-02-16] MEDS ORDERED: PARoxetine HCL 20 MG TABLET PO SCH (09:00)
[2017-02-16] MEDS: OMEPRAZOLE 20 MG CAPSULE PO SCH (09:00)
[2017-02-16] MEDS: DIVALPROEX SODIUM 500 MG DR TABLET PO SCH ×2 (09:50→17:13)
[2017-02-16] MEDS: LITHIUM CARBONATE 300 MG CAPSULE PO SCH ×2 (09:50→17:13)
[2017-02-16] MEDS: LORazepam 2 MG TABLET PO PRN ×2 (09:53→21:09)
[2017-02-16 12:38] VITALS: BP 128/68
[2017-02-16] MEDS ORDERED: HydrOXYzine PAMOATE 50 MG CAPSULE PO PRN (13:15)
[2017-02-16] MEDS ORDERED: GuaiFENesin/D-METHORPHAN [SUGAR-FREE] 200-20MG/10 ML SYRUP UDCUP PO PRN (13:15)
[2017-02-16] MEDS: THIAMINE HCL 100 MG TABLET PO SCH (17:13)
[2017-02-16] MEDS ORDERED: LITH300C3 PO (17:14)
[2017-02-16] MEDS ORDERED: NALT50TA PO (17:14)
[2017-02-16] MEDS ORDERED: PARO10TA71 PO (17:14)
[2017-02-16] MEDS ORDERED: DIVA500T35 PO (17:14)
[2017-02-16] MEDS ORDERED: OLAN7.5T9 PO (17:14)
[2017-02-16 18:21] VITALS: BP 126/82
[2017-02-16] MEDS: OLANZapine 7.5 MG TABLET PO SCH (21:00)
[2017-02-17] MEDS: DOCUSATE SODIUM 100 MG CAPSULE PO SCH (09:00)
[2017-02-17] MEDS ORDERED: MULTIVITAMINS WITH MINERALS, THERAPEUTIC TABLET PO SCH (09:00)
[2017-02-17] MEDS: THIAMINE HCL 100 MG TABLET PO SCH (09:00)
[2017-02-17] MEDS: OMEPRAZOLE 20 MG CAPSULE PO SCH (09:00)
[2017-02-17] MEDS ORDERED: LITHIUM CARBONATE 300 MG CAPSULE PO SCH (09:00)
[2017-02-17] MEDS ORDERED: PARoxetine HCL 10 MG TABLET PO SCH (09:00)
[2017-02-17] MEDS ORDERED: NALTREXONE HCL 50 MG TABLET PO SCH (09:00)
[2017-02-17] MEDS ORDERED: FOLIC ACID 1 MG TABLET PO SCH (09:00)
[2017-02-17] MEDS ORDERED: DIVALPROEX SODIUM 500 MG DR TABLET PO SCH (09:00)
[2017-02-17] MEDS: LORazepam 2 MG TABLET PO PRN (09:23)
[2017-02-17 09:45] VITALS: BP 118/74
== END 2017-02-17 13:00 | disposition home or self-care (01) | DRG 753 ==
LOC: EMS 17:03 → 3EI 20:35
PROVIDERS: ADMIT Psychiatry & Neurology Psychiatry; ATTEND Psychiatry & Neurology Psychiatry
DX: F31.5 Bipolar disorder, current episode depressed, severe, with psychotic features (principal); F13.20 Sedative, hypnotic or anxiolytic dependence, uncomplicated; R45.851 Suicidal ideations; I10 Essential (primary) hypertension; B18.2 Chronic viral hepatitis C; F12.90 Cannabis use, unspecified, uncomplicated; F17.210 Nicotine dependence, cigarettes, uncomplicated; G47.00 Insomnia, unspecified; J44.9 Chronic obstructive pulmonary disease, unspecified; K21.9 Gastro-esophageal reflux disease without esophagitis; K59.00 Constipation, unspecified; Z59.0 Homelessness; Z71.51 Drug abuse counseling and surveillance of drug abuser; Z79.899 Other long term (current) drug therapy; Z81.8 Family history of other mental and behavioral disorders; Z82.49 Family history of ischemic heart disease and other diseases of the circulatory system; Z91.19 Patient's noncompliance with other medical treatment and regimen
CPT/HCPCS: 87081; 99285

== ENCOUNTER 2017-03-28 19:38 | Inpatient (IN) | payer MEDICAID ==
[~2017-03-28] VITALS: Ht 177.8 cm; Wt 86.6 kg
[~2017-03-28 19:38] MED LIST changes: +DIVA500T35 PO; +LITH300C3 PO; -MINE120C3 TP; +NALT50TA PO; -NALT50TA6 PO; -OLAN10TA22 PO; -OLAN10TA3 PO; +OLAN7.5T9 PO; -PARO20TA24 PO
[2017-03-28 20:09] LABS: BASOPHILS % (AUTO) 0.5 % (0.0-2.0); HEMATOCRIT 43.5 % (41-53); HEMOGLOBIN 15.2 g/dL (13.5-17.5); LYMPHOCYTES # (AUTO) 2.2 K/uL (1.0-4.8); MEAN CORPUSCULAR HEMOGLOBIN 30.8 pg (26.0-34.0); MEAN CORPUSCULAR HGB CONC 34.9 G/dL (31.0-37.0); MEAN CORPUSCULAR VOLUME 88 fL (80-100); MONOCYTES # (AUTO) 0.7 K/uL (0.1-1.0); MONOCYTES % (AUTO) 6.9 % (2.0-9.0); NEUTROPHILS # (AUTO) 6.4 K/uL (1.8-7.7); NEUTROPHILS % (AUTO) 68.6 % (40.0-70.0); PLATELET COUNT (AUTO) 260 K/uL (150-450); RED BLOOD CELL COUNT(AUTO) 4.92 MIL/uL (4.50-5.90); WHITE BLOOD COUNT (AUTO) 9.4 K/uL (4.5-11.0)
[2017-03-28 20:15] LABS: ANION GAP 7 mmol/L (8-16); CALCIUM, TOTAL 8.7 mg/dL (8.8-10.5); CARBON DIOXIDE 30 mmol/L (22-29); CHLORIDE 105 mmol/L (98-107); CREATININE 0.94 mg/dL (0.60-1.30); GLOMERULAR FILTR. RATE CALC > 60 mL/min (>60); POTASSIUM 3.5 mmol/L (3.5-5.1); SODIUM SERUM 142 mmol/L (136-145); UREA NITROGEN, BLOOD 19 mg/dL (7-18)
[2017-03-28 20:21] LABS: ALANINE AMINOTRANSFERASE 23 U/L (12-78); ASPARTATE AMINOTRANSFERASE 14 U/L (15-37); BILIRUBIN,TOTAL 0.4 mg/dL (0.1-1.0); TOTAL PROTEIN, SERUM 6.6 g/dL (6.4-8.2)
[2017-03-29] MEDS ORDERED: HALOPERIDOL 5 MG TABLET PO PRN (00:30)
[2017-03-29 02:33] VITALS: BP 131/68
[2017-03-29] MEDS ORDERED: INFLUENZA VIRUS VACCINE QVS 2017-18 (3YR+)/PF 60 MCG/0.5 ML SYRINGE IM ONE (02:45)
[2017-03-29] MEDS ORDERED: -PHARMACY VACCINE NOTE- MISC ONE ×2 (02:45)
[2017-03-29] MEDS: LORazepam 2 MG TABLET PO PRN ×2 (03:45→20:27)
[2017-03-29] MEDS ORDERED: LOPERAMIDE HCL 2 MG CAPSULE PO PRN (07:15)
[2017-03-29] MEDS ORDERED: IBUPROFEN 600 MG TABLET PO PRN (07:15)
[2017-03-29] MEDS ORDERED: MAG HYDROX/AL HYDROX/SIMETH ES 30 ML SUSPENSION UDCUP PO PRN (07:15)
[2017-03-29] MEDS ORDERED: PETROLATUM,WHITE 71 GM JELLY TP PRN (07:15)
[2017-03-29] MEDS ORDERED: CloNIDine HCL 0.1 MG TABLET PO PRN (07:15)
[2017-03-29] MEDS ORDERED: ONDANSETRON HCL 4 MG TABLET PO PRN (07:15)
[2017-03-29] MEDS ORDERED: ACETAMINOPHEN 325 MG TABLET PO PRN (07:15)
[2017-03-29] MEDS ORDERED: BENZOCAINE/MENTHOL LOZENGE MM PRN (07:15)
[2017-03-29] MEDS ORDERED: ALBUTEROL SULFATE HFA 90 MCG/PUFF 8 GM INHALER IH PRN (07:15)
[2017-03-29] MEDS ORDERED: BACITRACIN 28.4 GM OINTMENT TP PRN (07:15)
[2017-03-29] MEDS ORDERED: MAGNESIUM HYDROXIDE SUSPENSION 30 ML UDCUP PO PRN (07:15)
[2017-03-29 08:12] VITALS: BP 121/71
[2017-03-29] MEDS: OMEPRAZOLE 20 MG CAPSULE PO SCH (09:00)
[2017-03-29] MEDS: DOCUSATE SODIUM 100 MG CAPSULE PO SCH (09:00)
[2017-03-29] MEDS: PARoxetine HCL 20 MG TABLET PO SCH (12:26)
[2017-03-29] MEDS: LITHIUM CARBONATE 300 MG CAPSULE PO SCH ×2 (12:26→16:19)
[2017-03-29] MEDS: DIVALPROEX SODIUM 500 MG DR TABLET PO SCH ×2 (12:26→16:19)
[2017-03-29] MEDS ORDERED: NYSTATIN 15 GM POWDER BOTTLE TP PRN (12:30)
[2017-03-29 16:29] VITALS: BP 113/84
[2017-03-29] MEDS: NYSTATIN 15 GM POWDER BOTTLE TP SCH (17:00)
[2017-03-29] MEDS: ZOLPIDEM TARTRATE 10 MG TABLET PO PRN (20:28)
[2017-03-30 07:45] VITALS: BP 122/88
[2017-03-30] MEDS: DOCUSATE SODIUM 100 MG CAPSULE PO SCH (09:00)
[2017-03-30] MEDS: DIVALPROEX SODIUM 500 MG DR TABLET PO SCH ×3 (09:00→16:19)
[2017-03-30] MEDS: LITHIUM CARBONATE 300 MG CAPSULE PO SCH ×3 (09:00→16:19)
[2017-03-30] MEDS: OMEPRAZOLE 20 MG CAPSULE PO SCH (09:00)
[2017-03-30] MEDS: PARoxetine HCL 20 MG TABLET PO SCH (09:47)
[2017-03-30] MEDS: NYSTATIN 15 GM POWDER BOTTLE TP SCH ×2 (09:47→16:19)
[2017-03-30 16:00] VITALS: BP 127/80
[2017-03-30] MEDS: LORazepam 2 MG TABLET PO PRN ×2 (16:23→22:20)
[2017-03-30] MEDS: ZOLPIDEM TARTRATE 10 MG TABLET PO PRN (22:20)
[2017-03-31 06:41] VITALS: BP 112/68
[2017-03-31 08:28] VITALS: BP 100/60
[2017-03-31] MEDS: LITHIUM CARBONATE 300 MG CAPSULE PO SCH ×3 (09:00→16:36)
[2017-03-31] MEDS: NYSTATIN 15 GM POWDER BOTTLE TP SCH ×2 (09:00→16:36)
[2017-03-31] MEDS: DIVALPROEX SODIUM 500 MG DR TABLET PO SCH ×3 (09:00→16:36)
[2017-03-31] MEDS: DOCUSATE SODIUM 100 MG CAPSULE PO SCH (09:00)
[2017-03-31] MEDS: OMEPRAZOLE 20 MG CAPSULE PO SCH (09:00)
[2017-03-31] MEDS: PARoxetine HCL 20 MG TABLET PO SCH (09:20)
[2017-03-31 16:00] VITALS: BP 114/67
[2017-03-31] MEDS: LORazepam 2 MG TABLET PO PRN ×2 (16:36→20:40)
[2017-03-31] MEDS: ZOLPIDEM TARTRATE 10 MG TABLET PO PRN (20:41)
[2017-04-01 08:03] VITALS: BP 112/64
[2017-04-01] MEDS: PARoxetine HCL 20 MG TABLET PO SCH (08:53)
[2017-04-01] MEDS: NYSTATIN 15 GM POWDER BOTTLE TP SCH (09:00)
[2017-04-01] MEDS: DIVALPROEX SODIUM 500 MG DR TABLET PO SCH (09:00)
[2017-04-01] MEDS: DOCUSATE SODIUM 100 MG CAPSULE PO SCH (09:00)
[2017-04-01] MEDS: LITHIUM CARBONATE 300 MG CAPSULE PO SCH (09:00)
[2017-04-01] MEDS: OMEPRAZOLE 20 MG CAPSULE PO SCH (09:00)
[2017-04-01] MEDS: LORazepam 2 MG TABLET PO PRN (09:46)
== END 2017-04-01 13:15 | disposition home or self-care (01) | DRG 750 ==
LOC: EMS 19:40 → UNDOADMIN 03-29 00:16 → B3A 03-29 00:16 → 3EI 03-29 00:16
PROC: 3E0234Z Introduction of Serum, Toxoid and Vaccine into Muscle, Percutaneous Approach (ICD-10-PCS; principal; 2017-03-29)
DX: F25.1 Schizoaffective disorder, depressive type (principal); R45.851 Suicidal ideations; I10 Essential (primary) hypertension; F41.9 Anxiety disorder, unspecified; F15.10 Other stimulant abuse, uncomplicated; B18.2 Chronic viral hepatitis C; F12.90 Cannabis use, unspecified, uncomplicated; G47.00 Insomnia, unspecified; J44.9 Chronic obstructive pulmonary disease, unspecified; K21.9 Gastro-esophageal reflux disease without esophagitis; K59.00 Constipation, unspecified; Z72.0 Tobacco use; Z71.6 Tobacco abuse counseling; Z71.51 Drug abuse counseling and surveillance of drug abuser; Z82.49 Family history of ischemic heart disease and other diseases of the circulatory system; Z91.5 Personal history of self-harm; Z79.899 Other long term (current) drug therapy; Z23 Encounter for immunization
CPT/HCPCS: 90471; 99285; G0480; J3535

== ENCOUNTER 2017-04-25 19:32 | Emergency (ER) | payer MEDICAID ==
[~2017-04-25] VITALS: Ht 177.8 cm; Wt 87.0 kg
[~2017-04-25 19:32] MED LIST changes: -NALT50TA PO; -OLAN7.5T9 PO
[2017-04-25] MEDS ORDERED: PARO20TA24 PO (19:44)
[2017-04-25] MEDS ORDERED: DIAZ10 PO (19:44)
[2017-04-25 19:49] LABS: BASOPHILS # (AUTO) 0.03 K/uL (0.00-0.20); BASOPHILS % (AUTO) 0.4 % (0.0-2.0); EOSINOPHILS # (AUTO) 0.06 K/uL (0.00-0.70); EOSINOPHILS % (AUTO) 0.76 % (1.0-6.0); HEMOGLOBIN 15.8 g/dL (13.5-17.5); LYMPHOCYTES # (AUTO) 1.9 K/uL (1.0-4.8); LYMPHOCYTES % (AUTO) 21.8 % (22.0-44.0); MEAN CORPUSCULAR HGB CONC 34.4 G/dL (31.0-37.0); MEAN CORPUSCULAR VOLUME 87 fL (80-100); MONOCYTES # (AUTO) 0.5 K/uL (0.1-1.0); MONOCYTES % (AUTO) 5.5 % (2.0-9.0); NEUTROPHILS # (AUTO) 6.1 K/uL (1.8-7.7); NEUTROPHILS % (AUTO) 71.6 % (40.0-70.0); PLATELET COUNT (AUTO) 258 K/uL (150-450); RED BLOOD CELL COUNT(AUTO) 5.27 MIL/uL (4.50-5.90); RED CELL DISTRIBUTION WIDTH 12.4 % (11.5-14.5); WHITE BLOOD COUNT (AUTO) 8.6 K/uL (4.5-11.0)
[2017-04-25 19:58] LABS: ANION GAP 5 mmol/L (8-16); CALCIUM, TOTAL 9.2 mg/dL (8.8-10.5); CARBON DIOXIDE 31 mmol/L (22-29); CHLORIDE 104 mmol/L (98-107); CREATININE 1.05 mg/dL (0.60-1.30); GLOMERULAR FILTR. RATE CALC > 60 mL/min (>60); POTASSIUM 3.8 mmol/L (3.5-5.1); SODIUM SERUM 140 mmol/L (136-145); UREA NITROGEN, BLOOD 22 mg/dL (7-18)
[2017-04-25 20:04] LABS: ALANINE AMINOTRANSFERASE 23 U/L (12-78); ALBUMIN 4.1 g/dL (3.4-5.0); ASPARTATE AMINOTRANSFERASE 16 U/L (15-37); BILIRUBIN,TOTAL 0.4 mg/dL (0.1-1.0); TOTAL PROTEIN, SERUM 7.2 g/dL (6.4-8.2)
[2017-04-25 20:19] LABS: VALPROIC ACID 3 mcg/mL (50-100)
[2017-04-25 21:34] LABS: LITHIUM < 0.20 mmol/L (0.60-1.20)
[2017-04-26 06:30] VITALS: BP 121/78
== END 2017-04-26 06:36 | disposition home or self-care (01) ==
LOC: EMS 19:34
DX: F32.9 Major depressive disorder, single episode, unspecified (principal); F20.9 Schizophrenia, unspecified; F12.90 Cannabis use, unspecified, uncomplicated
CPT/HCPCS: 36415; 80053; 80164; 80178; 80307; 85025; 99285; G0480

== ENCOUNTER 2017-05-26 23:39 | Inpatient (IN) | payer MEDICAID ==
[~2017-05-26] VITALS: Ht 177.8 cm; Wt 86.6 kg
[~2017-05-26 23:39] MED LIST changes: +DIAZ10 PO; -DIVA500T35 PO; -DSS100 PO; -LITH300C3 PO; -OMEP20 PO; -PARO10TA71 PO; +PARO20TA24 PO
[2017-05-27 01:03] LABS: BASOPHILS % (AUTO) 0.4 % (0.0-2.0); EOSINOPHILS % (AUTO) 1.1 % (1.0-6.0); HEMATOCRIT 45.3 % (41-53); HEMOGLOBIN 15.5 g/dL (13.5-17.5); LYMPHOCYTES # (AUTO) 2.5 K/uL (1.0-4.8); LYMPHOCYTES % (AUTO) 21.6 % (22.0-44.0); MEAN CORPUSCULAR HEMOGLOBIN 30.5 pg (26.0-34.0); MEAN CORPUSCULAR HGB CONC 34.3 G/dL (31.0-37.0); MEAN CORPUSCULAR VOLUME 89 fL (80-100); MONOCYTES # (AUTO) 0.7 K/uL (0.1-1.0); MONOCYTES % (AUTO) 6.2 % (2.0-9.0); NEUTROPHILS # (AUTO) 8.2 K/uL (1.8-7.7); NEUTROPHILS % (AUTO) 70.7 % (40.0-70.0); PLATELET COUNT (AUTO) 284 K/uL (150-450); RED BLOOD CELL COUNT(AUTO) 5.09 MIL/uL (4.50-5.90); RED CELL DISTRIBUTION WIDTH 12.6 % (11.5-14.5)
[2017-05-27 01:16] LABS: ANION GAP 6 mmol/L (8-16); CALCIUM, TOTAL 8.9 mg/dL (8.8-10.5); CARBON DIOXIDE 32 mmol/L (22-29); CHLORIDE 104 mmol/L (98-107); CREATININE 0.92 mg/dL (0.60-1.30); GLOMERULAR FILTR. RATE CALC > 60 mL/min (>60); GLUCOSE,RANDOM 94 mg/dL (70-110); POTASSIUM 3.8 mmol/L (3.5-5.1); SODIUM SERUM 142 mmol/L (136-145); UREA NITROGEN, BLOOD 22 mg/dL (7-18)
[2017-05-27 01:16] LABS: AMPHET/METH SCREEN,URINE NEGATIVE (NEGATIVE); BARBITURATE SCREEN, URINE NEGATIVE (NEGATIVE); BENZODIAZEPINES SCREEN,URINE POSITIVE (NEGATIVE); CANNABINOID SCREEN,URINE POSITIVE (NEGATIVE); COCAINE SCREEN,URINE NEGATIVE (NEGATIVE); METHADONE SCREEN, URINE NEGATIVE (NEGATIVE); OPIATE SCREEN,URINE NEGATIVE (NEGATIVE)
[2017-05-27 01:17] LABS: PHENCYCLIDINE SCREEN,URINE NEGATIVE (NEGATIVE)
[2017-05-27 01:22] LABS: ALANINE AMINOTRANSFERASE 31 U/L (12-78); ALBUMIN 3.9 g/dL (3.4-5.0); ALKALINE PHOSPHATASE 59 U/L (46-116); ASPARTATE AMINOTRANSFERASE 16 U/L (15-37); BILIRUBIN,TOTAL 0.4 mg/dL (0.1-1.0); TOTAL PROTEIN, SERUM 7.1 g/dL (6.4-8.2)
[2017-05-27] MEDS ORDERED: LORazepam 2 MG TABLET PO PRN (03:30)
[2017-05-27] MEDS ORDERED: HALOPERIDOL 5 MG TABLET PO PRN (03:30)
[2017-05-27] MEDS ORDERED: ZOLPIDEM TARTRATE 10 MG TABLET PO PRN (03:30)
[2017-05-27 09:09] VITALS: BP 126/95
[2017-05-27] MEDS: PARoxetine HCL 20 MG TABLET PO SCH (10:17)
[2017-05-27] MEDS ORDERED: PNEUMOCOCCAL VACCINE POLYVALENT 0.5 ML VIAL [PPSV23] IM ONE (12:45)
[2017-05-27] MEDS: LITHIUM CARBONATE 300 MG CAPSULE PO SCH (16:58)
[2017-05-27] MEDS: DIVALPROEX SODIUM 500 MG DR TABLET PO SCH (16:58)
[2017-05-27 18:15] VITALS: BP 140/79
[2017-05-27] MEDS ORDERED: ALBUTEROL SULFATE HFA 90 MCG/PUFF 8 GM INHALER IH PRN (22:30)
[2017-05-27] MEDS ORDERED: ACETAMINOPHEN 325 MG TABLET PO PRN (22:30)
[2017-05-28 07:00] VITALS: BP 125/78
[2017-05-28 08:00] VITALS: BP 126/78
[2017-05-28] MEDS: LITHIUM CARBONATE 300 MG CAPSULE PO SCH ×3 (09:00→16:40)
[2017-05-28] MEDS: OMEPRAZOLE 20 MG CAPSULE PO SCH (09:00)
[2017-05-28] MEDS: DIVALPROEX SODIUM 500 MG DR TABLET PO SCH ×3 (09:00→16:40)
[2017-05-28] MEDS: PARoxetine HCL 20 MG TABLET PO SCH (09:22)
[2017-05-28] MEDS: TERBINAFINE HCL 1% 30 GM CREAM TP SCH ×2 (09:23→16:40)
[2017-05-28 16:09] VITALS: BP 122/71
[2017-05-29 06:21] VITALS: BP 114/78
[2017-05-29 08:08] VITALS: BP 124/77
[2017-05-29] MEDS: DIVALPROEX SODIUM 500 MG DR TABLET PO SCH (08:54)
[2017-05-29] MEDS: OMEPRAZOLE 20 MG CAPSULE PO SCH (08:54)
[2017-05-29] MEDS: PARoxetine HCL 20 MG TABLET PO SCH (08:54)
[2017-05-29] MEDS: TERBINAFINE HCL 1% 30 GM CREAM TP SCH (08:55)
[2017-05-29] MEDS: LITHIUM CARBONATE 300 MG CAPSULE PO SCH (08:55)
[2017-05-29] MEDS ORDERED: LITH300C3 PO (10:16)
[2017-05-29] MEDS ORDERED: DIVA250T4 PO (10:16)
[2017-05-29] MEDS ORDERED: OMEP20 PO (10:18)
== END 2017-05-29 12:15 | disposition home or self-care (01) | DRG 750 ==
LOC: EMS 23:40 → AHU 05-27 07:49 → B3A 05-27 17:31
PROC: 3E0234Z Introduction of Serum, Toxoid and Vaccine into Muscle, Percutaneous Approach (ICD-10-PCS; principal; 2017-05-28)
DX: F25.1 Schizoaffective disorder, depressive type (principal); R45.851 Suicidal ideations; Z59.0 Homelessness; I10 Essential (primary) hypertension; B18.2 Chronic viral hepatitis C; F12.90 Cannabis use, unspecified, uncomplicated; F17.200 Nicotine dependence, unspecified, uncomplicated; G47.00 Insomnia, unspecified; J44.9 Chronic obstructive pulmonary disease, unspecified; D72.829 Elevated white blood cell count, unspecified; K21.9 Gastro-esophageal reflux disease without esophagitis; K59.00 Constipation, unspecified; Z91.5 Personal history of self-harm; Z79.899 Other long term (current) drug therapy; Z23 Encounter for immunization
CPT/HCPCS: 87081; 90471; 99285; G0480

== ENCOUNTER 2017-06-08 23:09 | Inpatient (IN) | payer MEDICAID ==
[~2017-06-08] VITALS: Ht 177.8 cm; Wt 85.4 kg
[~2017-06-08 23:09] MED LIST changes: -DIAZ10 PO; +DIVA250T4 PO; +LITH300C3 PO; +OMEP20 PO
[2017-06-09 01:30] LABS: BASOPHILS # (AUTO) 0.09 K/uL (0.00-0.20); BASOPHILS % (AUTO) 1.1 % (0.0-2.0); EOSINOPHILS # (AUTO) 0.11 K/uL (0.00-0.70); EOSINOPHILS % (AUTO) 1.31 % (1.0-6.0); HEMATOCRIT 47.7 % (41-53); LYMPHOCYTES # (AUTO) 2.7 K/uL (1.0-4.8); LYMPHOCYTES % (AUTO) 31.7 % (22.0-44.0); MEAN CORPUSCULAR HGB CONC 33.6 G/dL (31.0-37.0); MEAN CORPUSCULAR VOLUME 89 fL (80-100); MONOCYTES # (AUTO) 0.6 K/uL (0.1-1.0); MONOCYTES % (AUTO) 6.8 % (2.0-9.0); NEUTROPHILS # (AUTO) 5.1 K/uL (1.8-7.7); NEUTROPHILS % (AUTO) 59.1 % (40.0-70.0); PLATELET COUNT (AUTO) 279 K/uL (150-450); RED BLOOD CELL COUNT(AUTO) 5.35 MIL/uL (4.50-5.90); RED CELL DISTRIBUTION WIDTH 12.4 % (11.5-14.5)
[2017-06-09] MEDS ORDERED: HALOPERIDOL 5 MG TABLET PO PRN (01:30)
[2017-06-09] MEDS ORDERED: LORazepam 2 MG TABLET PO PRN (01:30)
[2017-06-09] MEDS ORDERED: ZOLPIDEM TARTRATE 10 MG TABLET PO PRN (01:30)
[2017-06-09 01:44] LABS: AMPHET/METH SCREEN,URINE NEGATIVE (NEGATIVE); BARBITURATE SCREEN, URINE NEGATIVE (NEGATIVE); BENZODIAZEPINES SCREEN,URINE POSITIVE (NEGATIVE); CANNABINOID SCREEN,URINE POSITIVE (NEGATIVE); COCAINE SCREEN,URINE NEGATIVE (NEGATIVE); METHADONE SCREEN, URINE NEGATIVE (NEGATIVE); OPIATE SCREEN,URINE NEGATIVE (NEGATIVE)
[2017-06-09 01:45] LABS: PHENCYCLIDINE SCREEN,URINE NEGATIVE (NEGATIVE)
[2017-06-09 01:50] LABS: ANION GAP 3 mmol/L (8-16); CARBON DIOXIDE 32 mmol/L (22-29); CHLORIDE 102 mmol/L (98-107); CREATININE 0.94 mg/dL (0.60-1.30); GLOMERULAR FILTR. RATE CALC > 60 mL/min (>60); GLUCOSE,RANDOM 92 mg/dL (70-110); SODIUM SERUM 137 mmol/L (136-145); UREA NITROGEN, BLOOD 25 mg/dL (7-18)
[2017-06-09 01:54] LABS: ALANINE AMINOTRANSFERASE 28 U/L (12-78); ALBUMIN 4.1 g/dL (3.4-5.0); ALKALINE PHOSPHATASE 58 U/L (46-116); ASPARTATE AMINOTRANSFERASE 16 U/L (15-37); BILIRUBIN,TOTAL 0.4 mg/dL (0.1-1.0); TOTAL PROTEIN, SERUM 7.5 g/dL (6.4-8.2)
[2017-06-09 11:00] VITALS: BP 112/68
[2017-06-09 17:15] VITALS: BP 135/85
[2017-06-10] MEDS ORDERED: IBUPROFEN 600 MG TABLET PO PRN (06:45)
[2017-06-10] MEDS ORDERED: PETROLATUM,WHITE 71 GM JELLY TP PRN (06:45)
[2017-06-10] MEDS ORDERED: ACETAMINOPHEN 325 MG TABLET PO PRN (06:45)
[2017-06-10] MEDS ORDERED: ONDANSETRON HCL 4 MG TABLET PO PRN (06:45)
[2017-06-10] MEDS ORDERED: CloNIDine HCL 0.1 MG TABLET PO PRN (06:45)
[2017-06-10] MEDS ORDERED: ALBUTEROL SULFATE HFA 90 MCG/PUFF 8 GM INHALER IH PRN (06:45)
[2017-06-10] MEDS ORDERED: LOPERAMIDE HCL 2 MG CAPSULE PO PRN (06:45)
[2017-06-10] MEDS ORDERED: BACITRACIN 28.4 GM OINTMENT TP PRN (06:45)
[2017-06-10] MEDS ORDERED: MAG HYDROX/AL HYDROX/SIMETH ES 30 ML SUSPENSION UDCUP PO PRN (06:45)
[2017-06-10] MEDS ORDERED: MAGNESIUM HYDROXIDE SUSPENSION 30 ML UDCUP PO PRN (06:45)
[2017-06-10] MEDS ORDERED: BENZOCAINE/MENTHOL LOZENGE [8 LOZENGES/PACKET] MM PRN (07:00)
[2017-06-10] MEDS: OMEPRAZOLE 20 MG CAPSULE PO SCH (09:00)
[2017-06-10 09:52] VITALS: BP 144/80
[2017-06-10] MEDS ORDERED: OMEPRAZOLE 20 MG CAPSULE PO SCH (10:15)
[2017-06-10] MEDS ORDERED: DIVA500T35 PO (10:59)
[2017-06-10] MEDS: DOCUSATE SODIUM 250 MG CAPSULE PO SCH ×2 (11:29→17:55)
[2017-06-10] MEDS: PARoxetine HCL 20 MG TABLET PO SCH (11:29)
[2017-06-10] MEDS: LITHIUM CARBONATE 300 MG CAPSULE PO SCH ×2 (13:00→17:55)
[2017-06-10] MEDS: DIVALPROEX SODIUM 500 MG DR TABLET PO SCH ×2 (13:00→17:55)
[2017-06-10 17:14] VITALS: BP 122/73
[2017-06-11 08:15] VITALS: BP 141/87
[2017-06-11] MEDS: LITHIUM CARBONATE 300 MG CAPSULE PO SCH ×3 (09:00→16:20)
[2017-06-11] MEDS: OMEPRAZOLE 20 MG CAPSULE PO SCH (09:00)
[2017-06-11] MEDS: DOCUSATE SODIUM 250 MG CAPSULE PO SCH ×2 (09:00→16:21)
[2017-06-11] MEDS: DIVALPROEX SODIUM 500 MG DR TABLET PO SCH ×3 (09:00→16:20)
[2017-06-11] MEDS: PARoxetine HCL 20 MG TABLET PO SCH (09:11)
[2017-06-11] MEDS ORDERED: TERBINAFINE HCL 1% 30 GM CREAM TP SCH (21:00)
[2017-06-11 21:07] VITALS: BP 134/82
[2017-06-12] MEDS: LITHIUM CARBONATE 300 MG CAPSULE PO SCH ×3 (09:00→16:26)
[2017-06-12] MEDS: OMEPRAZOLE 20 MG CAPSULE PO SCH (09:00)
[2017-06-12] MEDS: DIVALPROEX SODIUM 500 MG DR TABLET PO SCH ×3 (09:00→16:26)
[2017-06-12 10:24] VITALS: BP 111/65
[2017-06-12] MEDS: DOCUSATE SODIUM 250 MG CAPSULE PO SCH ×2 (10:25→16:25)
[2017-06-12] MEDS: PARoxetine HCL 20 MG TABLET PO SCH (10:25)
[2017-06-12] MEDS: TERBINAFINE HCL 1% 30 GM CREAM TP SCH ×2 (10:27→16:25)
[2017-06-12] MEDS ORDERED: LORazepam 1 MG TABLET PO PRN (13:30)
[2017-06-12 20:33] VITALS: BP 118/76
[2017-06-13 08:53] VITALS: BP 121/58
[2017-06-13] MEDS: DIVALPROEX SODIUM 500 MG DR TABLET PO SCH ×2 (09:00→10:28)
[2017-06-13] MEDS: LITHIUM CARBONATE 300 MG CAPSULE PO SCH ×2 (09:00→10:29)
[2017-06-13] MEDS: OMEPRAZOLE 20 MG CAPSULE PO SCH (09:10)
[2017-06-13] MEDS: TERBINAFINE HCL 1% 30 GM CREAM TP SCH (09:10)
[2017-06-13] MEDS: DOCUSATE SODIUM 250 MG CAPSULE PO SCH (09:10)
[2017-06-13] MEDS: PARoxetine HCL 20 MG TABLET PO SCH (09:11)
[2017-06-13] MEDS ORDERED: DOCU250C91 PO (09:15)
[2017-06-13] MEDS ORDERED: TERB30CR22 TP (09:17)
[2017-06-13 11:00] VITALS: BP 129/76
== END 2017-06-13 12:15 | disposition home or self-care (01) | DRG 750 ==
LOC: EMS 23:11 → AHU 06-09 10:19 → 3EI 06-09 16:00
DX: F25.1 Schizoaffective disorder, depressive type (principal); R45.851 Suicidal ideations; I10 Essential (primary) hypertension; B18.2 Chronic viral hepatitis C; F17.200 Nicotine dependence, unspecified, uncomplicated; F41.9 Anxiety disorder, unspecified; G47.00 Insomnia, unspecified; J44.9 Chronic obstructive pulmonary disease, unspecified; K21.9 Gastro-esophageal reflux disease without esophagitis; K59.09 Other constipation; Z82.49 Family history of ischemic heart disease and other diseases of the circulatory system; Z79.899 Other long term (current) drug therapy
CPT/HCPCS: 87081; G0480

== ENCOUNTER 2017-06-30 11:02 | Inpatient (IN) | payer MEDICAID ==
[~2017-06-30] VITALS: Ht 177.8 cm; Wt 89.4 kg
[~2017-06-30 11:02] MED LIST changes: -DIVA250T4 PO; +DIVA500T35 PO; +DOCU250C91 PO; +TERB30CR22 TP
[2017-06-30 12:09] LABS: AMPHET/METH SCREEN,URINE NEGATIVE (NEGATIVE); BARBITURATE SCREEN, URINE NEGATIVE (NEGATIVE); BENZODIAZEPINES SCREEN,URINE NEGATIVE (NEGATIVE); CANNABINOID SCREEN,URINE POSITIVE (NEGATIVE); COCAINE SCREEN,URINE NEGATIVE (NEGATIVE); METHADONE SCREEN, URINE NEGATIVE (NEGATIVE); OPIATE SCREEN,URINE NEGATIVE (NEGATIVE)
[2017-06-30 12:10] LABS: PHENCYCLIDINE SCREEN,URINE NEGATIVE (NEGATIVE)
[2017-06-30] MEDS ORDERED: LORazepam 2 MG TABLET PO ONE (12:15)
[2017-06-30] MEDS ORDERED: ZOLPIDEM TARTRATE 10 MG TABLET PO PRN (12:30)
[2017-06-30] MEDS ORDERED: HALOPERIDOL 5 MG TABLET PO PRN (12:30)
[2017-06-30 18:07] VITALS: BP 112/78
[2017-06-30] MEDS ORDERED: -PHARMACY VACCINE NOTE- MISC ONE (18:15)
[2017-06-30] MEDS: LORazepam 2 MG TABLET PO PRN (18:30)
[2017-07-01 03:22] VITALS: BP 115/81
[2017-07-01] MEDS: LORazepam 2 MG TABLET PO PRN ×3 (03:38→20:34)
[2017-07-01 08:03] VITALS: BP 110/62
[2017-07-01] MEDS: PARoxetine HCL 20 MG TABLET PO SCH (08:43)
[2017-07-01] MEDS ORDERED: LORazepam 2 MG/ML VIAL IM ONE (08:45)
[2017-07-01] MEDS ORDERED: DiphenhydrAMINE HCL 50 MG/ML VIAL IM ONE (08:45)
[2017-07-01] MEDS ORDERED: HALOPERIDOL LACTATE 5 MG/ML VIAL IM ONE (08:45)
[2017-07-01] MEDS: DOCUSATE SODIUM 250 MG CAPSULE PO SCH ×2 (09:00→16:14)
[2017-07-01] MEDS ORDERED: MAG HYDROX/AL HYDROX/SIMETH ES 30 ML SUSPENSION UDCUP PO PRN (09:45)
[2017-07-01] MEDS ORDERED: LOPERAMIDE HCL 2 MG CAPSULE PO PRN (09:45)
[2017-07-01] MEDS ORDERED: ALBUTEROL SULFATE HFA 90 MCG/PUFF 8 GM INHALER IH PRN (09:45)
[2017-07-01] MEDS ORDERED: CloNIDine HCL 0.1 MG TABLET PO PRN (09:45)
[2017-07-01] MEDS ORDERED: HYPROMELLOSE 0.5% 15 ML OPHTHALMIC SOLUTION OU PRN (09:45)
[2017-07-01] MEDS ORDERED: MAGNESIUM HYDROXIDE SUSPENSION 30 ML UDCUP PO PRN (09:45)
[2017-07-01] MEDS ORDERED: ONDANSETRON HCL 4 MG TABLET PO PRN (09:45)
[2017-07-01] MEDS ORDERED: IBUPROFEN 600 MG TABLET PO PRN (09:45)
[2017-07-01] MEDS ORDERED: PETROLATUM,WHITE 71 GM JELLY TP PRN (09:45)
[2017-07-01] MEDS ORDERED: ACETAMINOPHEN 325 MG TABLET PO PRN (09:45)
[2017-07-01] MEDS ORDERED: BENZOCAINE/MENTHOL LOZENGE MM PRN (09:45)
[2017-07-01] MEDS ORDERED: BACITRACIN 28.4 GM OINTMENT TP PRN (09:45)
[2017-07-01 16:00] VITALS: BP 113/79
[2017-07-01] MEDS: TERBINAFINE HCL 1% 30 GM CREAM TP SCH (16:15)
[2017-07-02 05:31] VITALS: BP 116/82
[2017-07-02 08:04] VITALS: BP 138/86
[2017-07-02] MEDS ORDERED: DOCU250C91 PO (08:25)
[2017-07-02] MEDS: LORazepam 2 MG TABLET PO PRN (08:39)
[2017-07-02] MEDS: PARoxetine HCL 20 MG TABLET PO SCH (08:39)
[2017-07-02] MEDS: DOCUSATE SODIUM 250 MG CAPSULE PO SCH (08:40)
[2017-07-02] MEDS: TERBINAFINE HCL 1% 30 GM CREAM TP SCH (08:41)
== END 2017-07-02 09:05 | disposition home or self-care (01) | DRG 750 ==
LOC: EEVIPCON 11:04 → EMS 11:04 → B3A 16:44
DX: F25.0 Schizoaffective disorder, bipolar type (principal); I10 Essential (primary) hypertension; F12.20 Cannabis dependence, uncomplicated; B35.3 Tinea pedis; J44.9 Chronic obstructive pulmonary disease, unspecified; F17.200 Nicotine dependence, unspecified, uncomplicated; G47.00 Insomnia, unspecified; K21.9 Gastro-esophageal reflux disease without esophagitis; B19.20 Unspecified viral hepatitis C without hepatic coma; K59.00 Constipation, unspecified; Z79.899 Other long term (current) drug therapy; Z82.49 Family history of ischemic heart disease and other diseases of the circulatory system
CPT/HCPCS: 87081; 99285

== ENCOUNTER 2017-09-22 06:23 | Emergency (ER) | payer MEDICAID ==
[~2017-09-22] VITALS: Ht 177.8 cm; Wt 100.0 kg
[~2017-09-22 06:23] MED LIST changes: -DIVA500T35 PO; -LITH300C3 PO; -OMEP20 PO; -TERB30CR22 TP
[2017-09-22] MEDS ORDERED: LISI-661 PO (06:43)
[2017-09-22 07:45] LABS: BASOPHILS % (AUTO) 1.2 % (0.0-2.0); EOSINOPHILS % (AUTO) 2.6 % (1.0-6.0); HEMATOCRIT 42.9 % (41-53); HEMOGLOBIN 14.9 g/dL (13.5-17.5); LYMPHOCYTES # (AUTO) 2.5 K/uL (1.0-4.8); LYMPHOCYTES % (AUTO) 34.2 % (22.0-44.0); MEAN CORPUSCULAR HEMOGLOBIN 30.5 pg (26.0-34.0); MEAN CORPUSCULAR HGB CONC 34.8 G/dL (31.0-37.0); MEAN CORPUSCULAR VOLUME 88 fL (80-100); MONOCYTES # (AUTO) 0.6 K/uL (0.1-1.0); NEUTROPHILS # (AUTO) 3.9 K/uL (1.8-7.7); PLATELET COUNT (AUTO) 242 K/uL (150-450); RED BLOOD CELL COUNT(AUTO) 4.89 MIL/uL (4.50-5.90); RED CELL DISTRIBUTION WIDTH 12.6 % (11.5-14.5)
[2017-09-22 07:58] LABS: ANION GAP 2 mmol/L (8-16); CALCIUM, TOTAL 8.7 mg/dL (8.8-10.5); CARBON DIOXIDE 30 mmol/L (22-29); CHLORIDE 104 mmol/L (98-107); CREATININE 0.82 mg/dL (0.60-1.30); GLOMERULAR FILTR. RATE CALC > 60 mL/min (>60); GLUCOSE,RANDOM 98 mg/dL (70-110); POTASSIUM 3.6 mmol/L (3.5-5.1); SODIUM SERUM 136 mmol/L (136-145); UREA NITROGEN, BLOOD 16 mg/dL (7-18)
[2017-09-22 08:03] LABS: ALANINE AMINOTRANSFERASE 23 U/L (12-78); ALBUMIN 3.6 g/dL (3.4-5.0); ALKALINE PHOSPHATASE 53 U/L (46-116); ASPARTATE AMINOTRANSFERASE 12 U/L (15-37); BILIRUBIN,TOTAL 0.3 mg/dL (0.1-1.0); TOTAL PROTEIN, SERUM 6.3 g/dL (6.4-8.2)
[2017-09-22 08:17] LABS: AMPHET/METH SCREEN,URINE NEGATIVE (NEGATIVE); BARBITURATE SCREEN, URINE NEGATIVE (NEGATIVE); BENZODIAZEPINES SCREEN,URINE POSITIVE (NEGATIVE); CANNABINOID SCREEN,URINE POSITIVE (NEGATIVE); COCAINE SCREEN,URINE NEGATIVE (NEGATIVE); METHADONE SCREEN, URINE NEGATIVE (NEGATIVE); OPIATE SCREEN,URINE NEGATIVE (NEGATIVE); PHENCYCLIDINE SCREEN,URINE NEGATIVE (NEGATIVE)
[2017-09-22 09:27] VITALS: BP 120/69
== END 2017-09-22 09:41 | disposition home or self-care (01) ==
LOC: EMS 06:24
DX: F20.9 Schizophrenia, unspecified (principal); F32.9 Major depressive disorder, single episode, unspecified; I10 Essential (primary) hypertension; F12.90 Cannabis use, unspecified, uncomplicated
CPT/HCPCS: 36415; 80053; 80307; 85025; 99284; G0480

== ENCOUNTER 2017-12-21 23:44 | Emergency (ER) | payer MEDICAID ==
[~2017-12-21] VITALS: Ht 177.8 cm; Wt 86.4 kg
[~2017-12-21 23:44] MED LIST changes: -DOCU250C91 PO; +LISI-661 PO
[2017-12-21 23:45] VITALS: BP 137/85
[2017-12-22 00:23] LABS: AMPHET/METH SCREEN,URINE NEGATIVE (NEGATIVE); BARBITURATE SCREEN, URINE NEGATIVE (NEGATIVE); BENZODIAZEPINES SCREEN,URINE NEGATIVE (NEGATIVE); CANNABINOID SCREEN,URINE POSITIVE (NEGATIVE); COCAINE SCREEN,URINE NEGATIVE (NEGATIVE); METHADONE SCREEN, URINE NEGATIVE (NEGATIVE); OPIATE SCREEN,URINE NEGATIVE (NEGATIVE)
[2017-12-22 00:24] LABS: PHENCYCLIDINE SCREEN,URINE NEGATIVE (NEGATIVE)
== END 2017-12-22 01:03 | disposition left against medical advice (07) ==
LOC: EMS 23:45
DX: R45.851 Suicidal ideations (principal); F32.9 Major depressive disorder, single episode, unspecified; F20.9 Schizophrenia, unspecified; I10 Essential (primary) hypertension; F12.90 Cannabis use, unspecified, uncomplicated; Z53.21 Procedure and treatment not carried out due to patient leaving prior to being seen by health care provider
CPT/HCPCS: 99281

== ENCOUNTER 2018-02-10 15:17 | Inpatient (IN) | payer MEDICAID ==
[~2018-02-10] VITALS: Ht 175.3 cm; Wt 95.7 kg
[2018-02-10] MEDS ORDERED: LORazepam 2 MG/ML VIAL IM ONE (17:00)
[2018-02-10] MEDS ORDERED: HALOPERIDOL LACTATE 5 MG/ML VIAL IM ONE (17:00)
[2018-02-10] MEDS ORDERED: DiphenhydrAMINE HCL 50 MG/ML VIAL IM ONE (17:00)
[2018-02-10] MEDS ORDERED: ZOLPIDEM TARTRATE 10 MG TABLET PO PRN (17:15)
[2018-02-10 17:18] LABS: AMPHET/METH SCREEN,URINE NEGATIVE (NEGATIVE); BARBITURATE SCREEN, URINE NEGATIVE (NEGATIVE); BENZODIAZEPINES SCREEN,URINE POSITIVE (NEGATIVE); CANNABINOID SCREEN,URINE POSITIVE (NEGATIVE); COCAINE SCREEN,URINE NEGATIVE (NEGATIVE); METHADONE SCREEN, URINE NEGATIVE (NEGATIVE); OPIATE SCREEN,URINE NEGATIVE (NEGATIVE); PHENCYCLIDINE SCREEN,URINE NEGATIVE (NEGATIVE)
[2018-02-10 19:17] VITALS: BP 117/79
[2018-02-10] MEDS ORDERED: CloNIDine HCL 0.1 MG TABLET PO PRN (19:30)
[2018-02-10] MEDS ORDERED: MAG HYDROX/AL HYDROX/SIMETH ES 30 ML SUSPENSION UDCUP PO PRN (19:30)
[2018-02-10] MEDS ORDERED: IBUPROFEN 600 MG TABLET PO PRN (19:30)
[2018-02-10] MEDS ORDERED: ACETAMINOPHEN 325 MG TABLET PO PRN (19:30)
[2018-02-10] MEDS ORDERED: PETROLATUM,WHITE 71 GM JELLY TP PRN (19:30)
[2018-02-10] MEDS ORDERED: BENZOCAINE/MENTHOL LOZENGE MM PRN (19:30)
[2018-02-10] MEDS ORDERED: ONDANSETRON HCL 4 MG TABLET PO PRN (19:30)
[2018-02-10] MEDS ORDERED: BACITRACIN 28.4 GM OINTMENT TP PRN (19:30)
[2018-02-10] MEDS ORDERED: ALBUTEROL SULFATE HFA 90 MCG/PUFF 8 GM INHALER IH PRN (19:30)
[2018-02-10] MEDS ORDERED: MAGNESIUM HYDROXIDE SUSPENSION 30 ML UDCUP PO PRN (19:30)
[2018-02-10] MEDS ORDERED: LOPERAMIDE HCL 2 MG CAPSULE PO PRN (19:30)
[2018-02-11 08:28] VITALS: BP 107/63
[2018-02-11] MEDS: OMEPRAZOLE 20 MG CAPSULE PO SCH (09:00)
[2018-02-11] MEDS: DOCUSATE SODIUM 100 MG CAPSULE PO SCH (09:00)
[2018-02-11] MEDS: LISINOPRIL 10 MG TABLET PO SCH (09:45)
[2018-02-11] MEDS: PARoxetine HCL 20 MG TABLET PO SCH (12:25)
[2018-02-11] MEDS: LORazepam 2 MG TABLET PO PRN ×2 (16:03→20:33)
[2018-02-11 17:41] VITALS: BP 115/73
[2018-02-12 07:03] VITALS: BP 132/65
[2018-02-12 08:10] VITALS: BP 132/78
[2018-02-12] MEDS: LORazepam 2 MG TABLET PO PRN ×2 (09:56→20:37)
[2018-02-12] MEDS: PARoxetine HCL 20 MG TABLET PO SCH (09:56)
[2018-02-12] MEDS: OMEPRAZOLE 20 MG CAPSULE PO SCH (09:56)
[2018-02-12] MEDS: LISINOPRIL 10 MG TABLET PO SCH (09:56)
[2018-02-12] MEDS: DOCUSATE SODIUM 100 MG CAPSULE PO SCH (09:56)
[2018-02-12] MEDS: HALOPERIDOL 5 MG TABLET PO PRN (09:56)
[2018-02-12 16:00] VITALS: BP 116/67
[2018-02-13 05:34] VITALS: BP 119/80
[2018-02-13 08:11] VITALS: BP 114/79
[2018-02-13] MEDS: HALOPERIDOL 5 MG TABLET PO PRN (09:46)
[2018-02-13] MEDS: OMEPRAZOLE 20 MG CAPSULE PO SCH (09:46)
[2018-02-13] MEDS: DOCUSATE SODIUM 100 MG CAPSULE PO SCH (09:46)
[2018-02-13] MEDS: PARoxetine HCL 20 MG TABLET PO SCH (09:46)
[2018-02-13] MEDS: LORazepam 2 MG TABLET PO PRN (09:46)
[2018-02-13] MEDS: LISINOPRIL 10 MG TABLET PO SCH (09:46)
== END 2018-02-13 13:15 | disposition home or self-care (01) | DRG 750 ==
LOC: EMS 15:19 → B3A 17:51
PROVIDERS: ADMIT Psychiatry & Neurology Child & Adolescent Psychiatry
DX: F20.9 Schizophrenia, unspecified (principal); B19.20 Unspecified viral hepatitis C without hepatic coma; F32.9 Major depressive disorder, single episode, unspecified; I10 Essential (primary) hypertension; F12.90 Cannabis use, unspecified, uncomplicated; F41.9 Anxiety disorder, unspecified; F17.200 Nicotine dependence, unspecified, uncomplicated; G47.00 Insomnia, unspecified; J44.9 Chronic obstructive pulmonary disease, unspecified; K21.9 Gastro-esophageal reflux disease without esophagitis; K59.00 Constipation, unspecified; Z82.49 Family history of ischemic heart disease and other diseases of the circulatory system
CPT/HCPCS: 96372; 99291; J1200; J1630; J2060

== ENCOUNTER 2018-07-27 05:10 | Emergency (ER) | payer MEDICAID | END 2018-07-27 06:03 | disposition left against medical advice (07) | LOC: EMS 05:11 | DX: I10 Essential (primary) hypertension (principal); Z53.21 Procedure and treatment not carried out due to patient leaving prior to being seen by health care provider ==

== ENCOUNTER 2018-08-10 06:57 | Inpatient (IN) | payer MEDICAID ==
[~2018-08-10] VITALS: Ht 177.8 cm; Wt 88.9 kg
[2018-08-10 08:14] LABS: EOSINOPHILS % (AUTO) 1.5 % (1.0-6.0); HEMATOCRIT 40.7 % (41-53); HEMOGLOBIN 14.2 g/dL (13.5-17.5); LYMPHOCYTES # (AUTO) 1.8 K/uL (1.0-4.8); LYMPHOCYTES % (AUTO) 24.2 % (22.0-44.0); MEAN CORPUSCULAR HEMOGLOBIN 30.2 pg (26.0-34.0); MEAN CORPUSCULAR HGB CONC 34.9 G/dL (31.0-37.0); MEAN CORPUSCULAR VOLUME 87 fL (80-100); MONOCYTES # (AUTO) 0.7 K/uL (0.1-1.0); MONOCYTES % (AUTO) 9.7 % (2.0-9.0); NEUTROPHILS # (AUTO) 4.6 K/uL (1.8-7.7); NEUTROPHILS % (AUTO) 63.6 % (40.0-70.0); PLATELET COUNT (AUTO) 292 K/uL (150-450); RED BLOOD CELL COUNT(AUTO) 4.71 MIL/uL (4.50-5.90); RED CELL DISTRIBUTION WIDTH 12.3 % (11.5-14.5)
[2018-08-10 08:29] LABS: ANION GAP 8 mmol/L (8-16); CALCIUM, TOTAL 8.5 mg/dL (8.8-10.5); CARBON DIOXIDE 28 mmol/L (22-29); CHLORIDE 103 mmol/L (98-107); CREATININE 0.87 mg/dL (0.60-1.30); GLOMERULAR FILTR. RATE CALC > 60 mL/min (>60); GLUCOSE,RANDOM 85 mg/dL (70-110); POTASSIUM 3.7 mmol/L (3.5-5.1); SODIUM SERUM 139 mmol/L (136-145); UREA NITROGEN, BLOOD 23 mg/dL (7-18)
[2018-08-10 08:37] LABS: ALANINE AMINOTRANSFERASE 29 U/L (12-78); ALBUMIN 3.5 g/dL (3.4-5.0); ALKALINE PHOSPHATASE 47 U/L (46-116); ASPARTATE AMINOTRANSFERASE 22 U/L (15-37); BILIRUBIN,TOTAL 0.4 mg/dL (0.1-1.0); TOTAL PROTEIN, SERUM 6.3 g/dL (6.4-8.2)
[2018-08-10 09:08] LABS: AMPHET/METH SCREEN,URINE NEGATIVE (NEGATIVE); BARBITURATE SCREEN, URINE NEGATIVE (NEGATIVE); BENZODIAZEPINES SCREEN,URINE NEGATIVE (NEGATIVE); CANNABINOID SCREEN,URINE POSITIVE (NEGATIVE); COCAINE SCREEN,URINE NEGATIVE (NEGATIVE); METHADONE SCREEN, URINE NEGATIVE (NEGATIVE); OPIATE SCREEN,URINE NEGATIVE (NEGATIVE)
[2018-08-10 09:14] LABS: PHENCYCLIDINE SCREEN,URINE NEGATIVE (NEGATIVE)
[2018-08-10] MEDS ORDERED: HALOPERIDOL 5 MG TABLET PO PRN (09:30)
[2018-08-10] MEDS ORDERED: ZOLPIDEM TARTRATE 10 MG TABLET PO PRN (09:30)
[2018-08-10 11:00] VITALS: BP 135/84
[2018-08-10 11:31] VITALS: BP 135/84
[2018-08-10] MEDS ORDERED: IBUPROFEN 400 MG TABLET PO PRN (11:45)
[2018-08-10] MEDS ORDERED: ACETAMINOPHEN 325 MG TABLET PO PRN (11:45)
[2018-08-10] MEDS ORDERED: ALBUTEROL SULFATE HFA 90 MCG/PUFF 8 GM INHALER IH PRN (11:45)
[2018-08-10] MEDS ORDERED: MAG HYDROX/AL HYDROX/SIMETH ES 30 ML SUSPENSION UDCUP PO PRN (11:45)
[2018-08-10] MEDS ORDERED: ONDANSETRON HCL 4 MG TABLET PO PRN (11:45)
[2018-08-10] MEDS ORDERED: MAGNESIUM HYDROXIDE SUSPENSION 30 ML UDCUP PO PRN (11:45)
[2018-08-10] MEDS ORDERED: PETROLATUM,WHITE 28 GM JELLY TP PRN (11:45)
[2018-08-10] MEDS ORDERED: NICOTINE 14 MG/24 HOUR PATCH TD PRN (11:45)
[2018-08-10] MEDS ORDERED: DOCUSATE SODIUM 100 MG CAPSULE PO PRN (11:45)
[2018-08-10] MEDS ORDERED: GuaiFENesin/D-METHORPHAN [SUGAR-FREE] 200-20MG/10 ML SYRUP UDCUP PO PRN (11:45)
[2018-08-10] MEDS ORDERED: CloNIDine HCL 0.1 MG TABLET PO PRN (11:45)
[2018-08-10] MEDS ORDERED: LOPERAMIDE HCL 2 MG CAPSULE PO PRN (11:45)
[2018-08-10] MEDS: LORazepam 2 MG TABLET PO PRN ×2 (13:51→22:48)
[2018-08-10 20:40] VITALS: BP 128/75
[2018-08-11 08:00] VITALS: BP 114/71
[2018-08-11] MEDS ORDERED: PARoxetine HCL 20 MG TABLET PO SCH (09:00)
[2018-08-11] MEDS: PARoxetine HCL 20 MG TABLET PO SCH (09:07)
[2018-08-11 16:35] VITALS: BP 118/74
[2018-08-11] MEDS: LORazepam 2 MG TABLET PO PRN ×2 (16:38→22:47)
[2018-08-11] MEDS ORDERED: MELATONIN 3 MG TABLET PO SCH (21:00)
[2018-08-12 08:00] VITALS: BP 112/82
[2018-08-12] MEDS: PARoxetine HCL 20 MG TABLET PO SCH (09:00)
[2018-08-12] MEDS: LISINOPRIL 10 MG TABLET PO SCH (09:03)
[2018-08-12] MEDS: CHLORHEXIDINE GLUCONATE 0.12% 15 ML UDCUP ORAL RINSE PO PRN (13:04)
[2018-08-12] MEDS: CLOTRIMAZOLE 1% 10 ML SOLUTION TP SCH (16:10)
[2018-08-12 16:44] VITALS: BP 122/76
[2018-08-12] MEDS: MELATONIN 5 MG TABLET PO SCH (20:34)
[2018-08-13 01:59] VITALS: BP 118/69
[2018-08-13] MEDS: PARoxetine HCL 20 MG TABLET PO SCH (09:00)
[2018-08-13] MEDS: LISINOPRIL 10 MG TABLET PO SCH (09:25)
[2018-08-13] MEDS: CLOTRIMAZOLE 1% 10 ML SOLUTION TP SCH ×2 (09:26→16:37)
[2018-08-13] MEDS: CHLORHEXIDINE GLUCONATE 0.12% 15 ML UDCUP ORAL RINSE PO PRN (09:32)
[2018-08-13] MEDS: VENLAFAXINE HCL 75 MG ER CAPSULE PO SCH (13:36)
[2018-08-13 20:12] VITALS: BP 134/101
[2018-08-13] MEDS: MELATONIN 5 MG TABLET PO SCH (20:31)
[2018-08-14 02:30] VITALS: BP 120/83
[2018-08-14] MEDS: VENLAFAXINE HCL 75 MG ER CAPSULE PO SCH (08:11)
[2018-08-14] MEDS: LISINOPRIL 10 MG TABLET PO SCH (08:11)
[2018-08-14] MEDS: CLOTRIMAZOLE 1% 10 ML SOLUTION TP SCH ×2 (08:11→16:17)
[2018-08-14 10:08] VITALS: BP 139/74
[2018-08-14 17:13] VITALS: BP 131/78
[2018-08-14] MEDS: MELATONIN 5 MG TABLET PO SCH (20:21)
[2018-08-15] MEDS: VENLAFAXINE HCL 75 MG ER CAPSULE PO SCH (09:00)
[2018-08-15] MEDS: CLOTRIMAZOLE 1% 10 ML SOLUTION TP SCH (09:17)
[2018-08-15] MEDS: LISINOPRIL 10 MG TABLET PO SCH (09:17)
[2018-08-15 10:35] VITALS: BP 120/74
[2018-08-15] MEDS ORDERED: VENL-67 PO (12:54)
[2018-08-15] MEDS ORDERED: LISI-661 PO (12:55)
[2018-08-15] MEDS ORDERED: CLOT12CR TP (13:00)
[2018-08-15] MEDS ORDERED: MELA5TAB3 PO (13:00)
== END 2018-08-15 15:00 | disposition home or self-care (01) | DRG 751 ==
LOC: EMS 06:59 → 3EI 10:22
PROVIDERS: ADMIT Psychiatry & Neurology Psychiatry; ATTEND Psychiatry & Neurology Psychiatry
DX: F33.3 Major depressive disorder, recurrent, severe with psychotic symptoms (principal); R45.851 Suicidal ideations; E83.51 Hypocalcemia; F60.3 Borderline personality disorder; R45.87 Impulsiveness; K21.9 Gastro-esophageal reflux disease without esophagitis; B19.20 Unspecified viral hepatitis C without hepatic coma; J44.9 Chronic obstructive pulmonary disease, unspecified; I10 Essential (primary) hypertension; F13.90 Sedative, hypnotic, or anxiolytic use, unspecified, uncomplicated; F12.90 Cannabis use, unspecified, uncomplicated; B18.2 Chronic viral hepatitis C; E78.5 Hyperlipidemia, unspecified; F19.90 Other psychoactive substance use, unspecified, uncomplicated; N40.0 Benign prostatic hyperplasia without lower urinary tract symptoms; Z91.5 Personal history of self-harm
CPT/HCPCS: G0480

== ENCOUNTER 2018-11-03 05:52 | Inpatient (IN) | payer MEDICAID ==
[~2018-11-03] VITALS: Ht 177.8 cm; Wt 98.5 kg
[~2018-11-03 05:52] MED LIST changes: +CLOT12CR TP; +MELA5TAB3 PO; -PARO20TA24 PO; +VENL-67 PO
[2018-11-03 06:39] LABS: BASOPHILS % (AUTO) 1.3 % (0.0-2.0); EOSINOPHILS % (AUTO) 3.6 % (1.0-6.0); HEMATOCRIT 41.1 % (41-53); HEMOGLOBIN 13.6 g/dL (13.5-17.5); LYMPHOCYTES # (AUTO) 1.9 K/uL (1.0-4.8); LYMPHOCYTES % (AUTO) 31.7 % (22.0-44.0); MEAN CORPUSCULAR HEMOGLOBIN 29.3 pg (26.0-34.0); MEAN CORPUSCULAR VOLUME 89 fL (80-100); MONOCYTES # (AUTO) 0.6 K/uL (0.1-1.0); MONOCYTES % (AUTO) 9.5 % (2.0-9.0); NEUTROPHILS # (AUTO) 3.3 K/uL (1.8-7.7); NEUTROPHILS % (AUTO) 53.9 % (40.0-70.0); PLATELET COUNT (AUTO) 205 K/uL (150-450); RED BLOOD CELL COUNT(AUTO) 4.63 MIL/uL (4.50-5.90); RED CELL DISTRIBUTION WIDTH 13.6 % (11.5-14.5)
[2018-11-03 06:47] LABS: ANION GAP 4 mmol/L (8-16); CALCIUM, TOTAL 8.9 mg/dL (8.8-10.5); CARBON DIOXIDE 30 mmol/L (22-29); CHLORIDE 104 mmol/L (98-107); CREATININE 0.97 mg/dL (0.60-1.30); GLOMERULAR FILTR. RATE CALC > 60 mL/min (>60); GLUCOSE,RANDOM 90 mg/dL (70-110); SODIUM SERUM 138 mmol/L (136-145); UREA NITROGEN, BLOOD 18 mg/dL (7-18)
[2018-11-03 06:47] LABS: AMPHET/METH SCREEN,URINE NEGATIVE (NEGATIVE); BARBITURATE SCREEN, URINE NEGATIVE (NEGATIVE); BENZODIAZEPINES SCREEN,URINE POSITIVE (NEGATIVE); CANNABINOID SCREEN,URINE POSITIVE (NEGATIVE); COCAINE SCREEN,URINE NEGATIVE (NEGATIVE); METHADONE SCREEN, URINE NEGATIVE (NEGATIVE); OPIATE SCREEN,URINE NEGATIVE (NEGATIVE); PHENCYCLIDINE SCREEN,URINE NEGATIVE (NEGATIVE)
[2018-11-03 06:53] LABS: ALANINE AMINOTRANSFERASE 19 U/L (12-78); ALBUMIN 3.5 g/dL (3.4-5.0); ALKALINE PHOSPHATASE 48 U/L (46-116); ASPARTATE AMINOTRANSFERASE 12 U/L (15-37); BILIRUBIN,TOTAL 0.4 mg/dL (0.1-1.0); TOTAL PROTEIN, SERUM 6.5 g/dL (6.4-8.2)
[2018-11-03] MEDS ORDERED: ZOLPIDEM TARTRATE 10 MG TABLET PO PRN (09:45)
[2018-11-03] MEDS ORDERED: HALOPERIDOL 5 MG TABLET PO PRN (09:45)
[2018-11-03 11:45] VITALS: BP 127/78
[2018-11-03] MEDS ORDERED: GuaiFENesin/D-METHORPHAN [SUGAR-FREE] 200-20MG/10 ML SYRUP UDCUP PO PRN (12:00)
[2018-11-03] MEDS ORDERED: IBUPROFEN 400 MG TABLET PO PRN (12:00)
[2018-11-03] MEDS ORDERED: PETROLATUM,WHITE 28 GM JELLY TP PRN (12:00)
[2018-11-03] MEDS ORDERED: ONDANSETRON HCL 4 MG TABLET PO PRN (12:00)
[2018-11-03] MEDS ORDERED: LOPERAMIDE HCL 2 MG CAPSULE PO PRN (12:00)
[2018-11-03] MEDS ORDERED: DOCUSATE SODIUM 100 MG CAPSULE PO PRN (12:00)
[2018-11-03] MEDS ORDERED: ACETAMINOPHEN 325 MG TABLET PO PRN (12:00)
[2018-11-03] MEDS ORDERED: MAGNESIUM HYDROXIDE SUSPENSION 30 ML UDCUP PO PRN (12:00)
[2018-11-03] MEDS ORDERED: NICOTINE 14 MG/24 HOUR PATCH TD PRN (12:00)
[2018-11-03] MEDS ORDERED: MAG HYDROX/AL HYDROX/SIMETH ES 30 ML SUSPENSION UDCUP PO PRN (12:00)
[2018-11-03] MEDS ORDERED: CloNIDine HCL 0.1 MG TABLET PO PRN (12:00)
[2018-11-03] MEDS ORDERED: ALBUTEROL SULFATE HFA 90 MCG/PUFF 8 GM INHALER IH PRN (12:00)
[2018-11-03 16:15] VITALS: BP 112/72
[2018-11-04 06:15] VITALS: BP 108/67
[2018-11-04 08:00] VITALS: BP 110/74
[2018-11-04] MEDS: PARoxetine HCL 20 MG TABLET PO SCH (09:19)
[2018-11-04 17:38] VITALS: BP 121/60
[2018-11-04] MEDS: LORazepam 2 MG TABLET PO PRN (21:08)
[2018-11-05 06:18] VITALS: BP 110/72
[2018-11-05] MEDS: PARoxetine HCL 20 MG TABLET PO SCH (08:30)
[2018-11-05 08:36] VITALS: BP 101/75
[2018-11-05 16:07] VITALS: BP 112/63
[2018-11-05] MEDS: LORazepam 2 MG TABLET PO PRN (21:05)
[2018-11-06 02:52] VITALS: BP 139/73
[2018-11-06] MEDS: PARoxetine HCL 20 MG TABLET PO SCH (08:25)
[2018-11-06] MEDS: TERBINAFINE HCL 1% 30 GM CREAM TP SCH (08:25)
[2018-11-06 08:28] VITALS: BP 112/72
[2018-11-06 16:07] VITALS: BP 106/81
[2018-11-07 06:13] VITALS: BP 116/77
[2018-11-07] MEDS: PARoxetine HCL 20 MG TABLET PO SCH (08:24)
[2018-11-07] MEDS: TERBINAFINE HCL 1% 30 GM CREAM TP SCH (08:24)
[2018-11-07 16:17] VITALS: BP 126/71
[2018-11-08 06:26] VITALS: BP 128/74
[2018-11-08 08:21] VITALS: BP 121/76
[2018-11-08] MEDS: PARoxetine HCL 20 MG TABLET PO SCH (08:25)
[2018-11-08] MEDS: TERBINAFINE HCL 1% 30 GM CREAM TP SCH (08:25)
[2018-11-08 16:09] VITALS: BP 125/77
[2018-11-09 06:30] VITALS: BP 107/64
[2018-11-09] MEDS: TERBINAFINE HCL 1% 30 GM CREAM TP SCH (08:40)
[2018-11-09] MEDS: PARoxetine HCL 20 MG TABLET PO SCH (08:40)
[2018-11-09 16:05] VITALS: BP 126/71
[2018-11-10 03:13] VITALS: BP 116/68
[2018-11-10 08:21] VITALS: BP 110/79
[2018-11-10] MEDS: TERBINAFINE HCL 1% 30 GM CREAM TP SCH (08:43)
[2018-11-10] MEDS: PARoxetine HCL 20 MG TABLET PO SCH (08:43)
[2018-11-10 16:18] VITALS: BP 112/67
[2018-11-11 06:28] VITALS: BP_SYST 117; BP_SYST 118; BP_DIAS 75; BP_DIAS 87
[2018-11-11] MEDS ORDERED: CLON-570 PO (07:51)
[2018-11-11] MEDS ORDERED: PARO20TA24 PO (07:51)
[2018-11-11 08:31] VITALS: BP 124/60
[2018-11-11] MEDS: TERBINAFINE HCL 1% 30 GM CREAM TP SCH (08:52)
[2018-11-11] MEDS: PARoxetine HCL 20 MG TABLET PO SCH (08:52)
[2018-11-12 07:56] LABS: APPEARANCE,URINE CLEAR (CLEAR); BILIRUBIN,URINE NEGATIVE (NEGATIVE); GLUCOSE, URINE (UA) NEGATIVE (NEGATIVE); KETONES,URINE NEGATIVE (NEGATIVE); LEUKOCYTE ESTERASE ,URINE NEGATIVE (NEGATIVE); NITRATE,URINE NEGATIVE (NEGATIVE); OCCULT BLOOD,URINE NEGATIVE (NEGATIVE); PH,URINE 7.5 (5.0-8.0); PROTEIN,URINE NEGATIVE (NEGATIVE); UROBILINOGEN,URINE 0.2 mg/dL (<=1.0)
== END 2018-11-11 15:16 | disposition home or self-care (01) | DRG 751 ==
LOC: EMS 05:56 → B3A 09:53
DX: F33.2 Major depressive disorder, recurrent severe without psychotic features (principal); E83.51 Hypocalcemia; R45.851 Suicidal ideations; B18.2 Chronic viral hepatitis C; F20.9 Schizophrenia, unspecified; E78.5 Hyperlipidemia, unspecified; F41.9 Anxiety disorder, unspecified; F12.10 Cannabis abuse, uncomplicated; I10 Essential (primary) hypertension; J44.9 Chronic obstructive pulmonary disease, unspecified; K21.9 Gastro-esophageal reflux disease without esophagitis; N40.0 Benign prostatic hyperplasia without lower urinary tract symptoms; Z59.0 Homelessness; Z79.899 Other long term (current) drug therapy; Z71.51 Drug abuse counseling and surveillance of drug abuser
CPT/HCPCS: G0480

== ENCOUNTER 2019-07-25 23:25 | Inpatient (IN) | payer MEDICAID ==
[~2019-07-25] VITALS: Ht 177.8 cm; Wt 102.5 kg
[~2019-07-25 23:25] MED LIST changes: -CLOT12CR TP; -LISI-661 PO; -MELA5TAB3 PO; +PARO-37 PO; +TRAZ-252 PO; -VENL-67 PO
[2019-07-26] MEDS ORDERED: ESCI10TA PO (00:18)
[2019-07-26] MEDS ORDERED: LISI-660 PO (00:18)
[2019-07-26 00:29] LABS: AMPHET/METH SCREEN,URINE NEGATIVE (NEGATIVE); BARBITURATE SCREEN, URINE NEGATIVE (NEGATIVE); BENZODIAZEPINES SCREEN,URINE POSITIVE (NEGATIVE); CANNABINOID SCREEN,URINE POSITIVE (NEGATIVE); COCAINE SCREEN,URINE NEGATIVE (NEGATIVE); METHADONE SCREEN, URINE NEGATIVE (NEGATIVE); OPIATE SCREEN,URINE NEGATIVE (NEGATIVE)
[2019-07-26 00:30] LABS: PHENCYCLIDINE SCREEN,URINE NEGATIVE (NEGATIVE)
[2019-07-26 00:33] LABS: BASOPHILS % (AUTO) 0.7 % (0.0-2.0); HEMATOCRIT 40.1 % (41-53); HEMOGLOBIN 13.5 g/dL (13.5-17.5); LYMPHOCYTES # (AUTO) 2.3 K/uL (1.0-4.8); LYMPHOCYTES % (AUTO) 27.6 % (22.0-44.0); MEAN CORPUSCULAR HEMOGLOBIN 29.6 pg (26.0-34.0); MEAN CORPUSCULAR HGB CONC 33.8 G/dL (31.0-37.0); MEAN CORPUSCULAR VOLUME 88 fL (80-100); MONOCYTES # (AUTO) 0.6 K/uL (0.1-1.0); MONOCYTES % (AUTO) 7.7 % (2.0-9.0); NEUTROPHILS # (AUTO) 5.2 K/uL (1.8-7.7); PLATELET COUNT (AUTO) 367 K/uL (150-450); RED BLOOD CELL COUNT(AUTO) 4.57 MIL/uL (4.50-5.90); RED CELL DISTRIBUTION WIDTH 12.4 % (11.5-14.5)
[2019-07-26 00:43] LABS: ANION GAP 6 mmol/L (8-16); CARBON DIOXIDE 30 mmol/L (22-29); CHLORIDE 101 mmol/L (98-107); CREATININE 0.97 mg/dL (0.60-1.30); GLOMERULAR FILTR. RATE CALC > 60 mL/min (>60); GLUCOSE,RANDOM 79 mg/dL (70-110); POTASSIUM 3.7 mmol/L (3.5-5.1); SODIUM SERUM 137 mmol/L (136-145); UREA NITROGEN, BLOOD 20 mg/dL (7-18)
[2019-07-26 00:49] LABS: ALANINE AMINOTRANSFERASE 40 U/L (12-78); ALBUMIN 3.4 g/dL (3.4-5.0); ALKALINE PHOSPHATASE 47 U/L (46-116); ASPARTATE AMINOTRANSFERASE 27 U/L (15-37); BILIRUBIN,TOTAL 0.3 mg/dL (0.1-1.0); TOTAL PROTEIN, SERUM 6.2 g/dL (6.4-8.2)
[2019-07-26] MEDS ORDERED: HALOPERIDOL 5 MG TABLET PO PRN (02:30)
[2019-07-26 03:33] LABS: APPEARANCE,URINE CLOUDY (CLEAR); BILIRUBIN,URINE NEGATIVE (NEGATIVE); GLUCOSE, URINE (UA) NEGATIVE (NEGATIVE); KETONES,URINE NEGATIVE (NEGATIVE); LEUKOCYTE ESTERASE ,URINE NEGATIVE (NEGATIVE); NITRATE,URINE NEGATIVE (NEGATIVE); OCCULT BLOOD,URINE NEGATIVE (NEGATIVE); PH,URINE 5.5 (5.0-8.0); PROTEIN,URINE NEGATIVE (NEGATIVE); UROBILINOGEN,URINE 0.2 mg/dL (<=1.0)
[2019-07-26 05:01] VITALS: BP 116/72
[2019-07-26 08:41] VITALS: BP 133/69
[2019-07-26] MEDS ORDERED: AZITHROMYCIN 250 MG TABLET PO SCH (09:45)
[2019-07-26] MEDS ORDERED: ERYTHROMYCIN BASE 500 MG TABLET PO SCH (11:00)
[2019-07-26] MEDS: ESCITALOPRAM OXALATE 10 MG TABLET PO SCH (11:24)
[2019-07-26 19:54] VITALS: BP 114/70
[2019-07-26] MEDS: LORazepam 2 MG TABLET PO PRN (22:18)
[2019-07-27 06:31] VITALS: BP 108/68
[2019-07-27 08:14] VITALS: BP 110/77
[2019-07-27] MEDS ORDERED: ESCITALOPRAM OXALATE 10 MG TABLET PO SCH (09:00)
[2019-07-27] MEDS: AZITHROMYCIN 250 MG TABLET PO SCH (09:14)
[2019-07-27] MEDS: ESCITALOPRAM OXALATE 10 MG TABLET PO SCH (09:14)
[2019-07-27] MEDS: LISINOPRIL 5 MG TABLET PO SCH (09:15)
[2019-07-27] MEDS: LORazepam 2 MG TABLET PO PRN ×3 (11:26→23:15)
[2019-07-27 16:00] VITALS: BP 107/69
[2019-07-28 00:22] VITALS: BP 123/78
[2019-07-28] MEDS: LISINOPRIL 5 MG TABLET PO SCH (10:17)
[2019-07-28] MEDS: ESCITALOPRAM OXALATE 10 MG TABLET PO SCH (10:17)
[2019-07-28] MEDS: AZITHROMYCIN 250 MG TABLET PO SCH (10:17)
[2019-07-28] MEDS: LORazepam 2 MG TABLET PO PRN ×2 (11:41→19:58)
[2019-07-28 16:37] VITALS: BP 132/82
[2019-07-28] MEDS: SIMVASTATIN 20 MG TABLET PO SCH (20:02)
[2019-07-28] MEDS: ZOLPIDEM TARTRATE 10 MG TABLET PO PRN (22:55)
[2019-07-29] MEDS: LISINOPRIL 5 MG TABLET PO SCH (08:52)
[2019-07-29] MEDS: AZITHROMYCIN 250 MG TABLET PO SCH (08:52)
[2019-07-29] MEDS: ESCITALOPRAM OXALATE 10 MG TABLET PO SCH (08:52)
[2019-07-29 09:28] VITALS: BP 111/80
[2019-07-29 16:12] VITALS: BP 128/68
[2019-07-29] MEDS: ZOLPIDEM TARTRATE 10 MG TABLET PO PRN (20:24)
[2019-07-29] MEDS: LORazepam 2 MG TABLET PO PRN (20:24)
[2019-07-29] MEDS: SIMVASTATIN 20 MG TABLET PO SCH (20:24)
[2019-07-30 08:00] VITALS: BP 112/67
[2019-07-30] MEDS: LISINOPRIL 5 MG TABLET PO SCH (08:54)
[2019-07-30] MEDS: AZITHROMYCIN 250 MG TABLET PO SCH (08:54)
[2019-07-30] MEDS: ESCITALOPRAM OXALATE 10 MG TABLET PO SCH (08:54)
[2019-07-30] MEDS: LORazepam 2 MG TABLET PO PRN ×2 (08:55→21:23)
[2019-07-30 16:12] VITALS: BP 105/65
[2019-07-30] MEDS: SIMVASTATIN 20 MG TABLET PO SCH (20:54)
[2019-07-30] MEDS: ZOLPIDEM TARTRATE 10 MG TABLET PO PRN (21:23)
[2019-07-31 06:41] VITALS: BP 105/70
[2019-07-31 08:18] VITALS: BP 116/68
[2019-07-31] MEDS: ESCITALOPRAM OXALATE 10 MG TABLET PO SCH (08:20)
[2019-07-31] MEDS: LISINOPRIL 5 MG TABLET PO SCH (08:20)
[2019-07-31] MEDS: LORazepam 2 MG TABLET PO PRN (08:45)
[2019-07-31] MEDS ORDERED: SIMV-260 PO (10:22)
== END 2019-07-31 12:20 | disposition home or self-care (01) | DRG 751 ==
LOC: EMS 23:25 → B3A 07-26 03:00
PROVIDERS: ADMIT Psychiatry & Neurology Psychiatry; ATTEND Psychiatry & Neurology Psychiatry
DX: F33.2 Major depressive disorder, recurrent severe without psychotic features (principal); R45.851 Suicidal ideations; B19.20 Unspecified viral hepatitis C without hepatic coma; F12.90 Cannabis use, unspecified, uncomplicated; F60.3 Borderline personality disorder; I10 Essential (primary) hypertension; J44.9 Chronic obstructive pulmonary disease, unspecified; K21.9 Gastro-esophageal reflux disease without esophagitis; Z91.5 Personal history of self-harm; Z79.899 Other long term (current) drug therapy
CPT/HCPCS: G0480

== ENCOUNTER 2019-07-26 12:45 | Emergency (ER) | payer MEDICAID ==
[~2019-07-26] VITALS: Ht 177.8 cm; Wt 100.0 kg
[~2019-07-26 12:45] MED LIST changes: +ESCI10TA PO; +LISI-660 PO
[2019-07-26 15:32] LABS: INFLUENZA TYPE A NEGATIVE FOR TYPE A (NEGATIVE); INFLUENZA TYPE B NEGATIVE FOR TYPE B (NEGATIVE)
[2019-07-26 16:51] VITALS: BP 118/74
== END 2019-07-26 16:53 | disposition other institution (70) ==
LOC: EMS 12:46
DX: J40 Bronchitis, not specified as acute or chronic (principal); I10 Essential (primary) hypertension; F20.9 Schizophrenia, unspecified; F31.9 Bipolar disorder, unspecified; Z79.899 Other long term (current) drug therapy; Z86.19 Personal history of other infectious and parasitic diseases
CPT/HCPCS: 87804

== ENCOUNTER 2020-01-13 19:29 | Inpatient (IN) | payer MEDICAID ==
[~2020-01-13] VITALS: Ht 177.8 cm; Wt 93.7 kg
[~2020-01-13 19:29] MED LIST changes: +ESCI-8 PO; -ESCI10TA PO; -PARO-37 PO; +SIMV-260 PO; -TRAZ-252 PO
[2020-01-13 20:35] LABS: BASOPHILS % (AUTO) 0.7 % (0.0-2.0); LYMPHOCYTES # (AUTO) 2.2 K/uL (1.0-4.8); LYMPHOCYTES % (AUTO) 25.6 % (22.0-44.0); MEAN CORPUSCULAR VOLUME 89 fL (80-100); MONOCYTES # (AUTO) 0.6 K/uL (0.1-1.0); MONOCYTES % (AUTO) 6.6 % (2.0-9.0); NEUTROPHILS # (AUTO) 5.7 K/uL (1.8-7.7); NEUTROPHILS % (AUTO) 65.1 % (40.0-70.0); PLATELET COUNT (AUTO) 237 K/uL (150-450); RED BLOOD CELL COUNT(AUTO) 4.85 MIL/uL (4.50-5.90); RED CELL DISTRIBUTION WIDTH 12.6 % (11.5-14.5)
[2020-01-13 20:45] LABS: ANION GAP 4 mmol/L (8-16); CARBON DIOXIDE 31 mmol/L (22-29); CHLORIDE 101 mmol/L (98-107); GLOMERULAR FILTR. RATE CALC > 60 mL/min (>60); GLUCOSE,RANDOM 95 mg/dL (70-110); POTASSIUM 3.5 mmol/L (3.5-5.1); SODIUM SERUM 136 mmol/L (136-145); UREA NITROGEN, BLOOD 20 mg/dL (7-18)
[2020-01-13 20:51] LABS: ALANINE AMINOTRANSFERASE 50 U/L (12-78); ALBUMIN 3.6 g/dL (3.4-5.0); ALKALINE PHOSPHATASE 52 U/L (46-116); ASPARTATE AMINOTRANSFERASE 26 U/L (15-37); BILIRUBIN,TOTAL 0.4 mg/dL (0.1-1.0); TOTAL PROTEIN, SERUM 6.6 g/dL (6.4-8.2)
[2020-01-13 21:26] LABS: AMPHET/METH SCREEN,URINE NEGATIVE (NEGATIVE); BARBITURATE SCREEN, URINE NEGATIVE (NEGATIVE); BENZODIAZEPINES SCREEN,URINE NEGATIVE (NEGATIVE); CANNABINOID SCREEN,URINE NEGATIVE (NEGATIVE); COCAINE SCREEN,URINE NEGATIVE (NEGATIVE); METHADONE SCREEN, URINE NEGATIVE (NEGATIVE); OPIATE SCREEN,URINE NEGATIVE (NEGATIVE)
[2020-01-13 21:29] LABS: PHENCYCLIDINE SCREEN,URINE NEGATIVE (NEGATIVE)
[2020-01-14] MEDS ORDERED: QUEtiapine FUMARATE 100 MG TABLET PO PRN (00:30)
[2020-01-14] MEDS ORDERED: LORazepam 2 MG TABLET PO PRN (00:30)
[2020-01-14 03:16] LABS: APPEARANCE,URINE CLEAR (CLEAR); BILIRUBIN,URINE NEGATIVE (NEGATIVE); GLUCOSE, URINE (UA) NEGATIVE (NEGATIVE); KETONES,URINE NEGATIVE (NEGATIVE); LEUKOCYTE ESTERASE ,URINE NEGATIVE (NEGATIVE); NITRATE,URINE NEGATIVE (NEGATIVE); OCCULT BLOOD,URINE NEGATIVE (NEGATIVE); PROTEIN,URINE NEGATIVE (NEGATIVE); UROBILINOGEN,URINE 0.2 mg/dL (<=1.0)
[2020-01-14 03:28] LABS: AMORPHOUS SEDIMENT,UR Moderate /LPF (None Seen); BACTERIA,URINE Moderate /HPF (None Seen); RBC,URINE 0-2 /HPF (0-2); SQUAMOUS EPITHELIAL CELL,UR Few /LPF (None Seen); WBC,URINE 0-2 /HPF (0-5)
[2020-01-14 03:55] VITALS: BP 125/60
[2020-01-14 04:10] VITALS: BP 125/60
[2020-01-14 08:00] VITALS: BP 110/70
[2020-01-14] MEDS: ESCITALOPRAM OXALATE 10 MG TABLET PO SCH (09:43)
[2020-01-14] MEDS ORDERED: MAG HYDROX/AL HYDROX/SIMETH ES 30 ML SUSPENSION UDCUP PO PRN (09:45)
[2020-01-14] MEDS ORDERED: GuaiFENesin/D-METHORPHAN [SUGAR-FREE] 200-20MG/10 ML SYRUP UDCUP PO PRN (09:45)
[2020-01-14] MEDS ORDERED: TUBERCULIN, PURIFIED PROTEIN DERIVATIVE 5 TU/0.1 ML SYRINGE ID ONE (09:45)
[2020-01-14] MEDS ORDERED: LOPERAMIDE HCL 2 MG CAPSULE PO PRN (09:45)
[2020-01-14] MEDS ORDERED: ACETAMINOPHEN 325 MG TABLET PO PRN (09:45)
[2020-01-14] MEDS ORDERED: PROMETHAZINE HCL 25 MG TABLET PO PRN (09:45)
[2020-01-14] MEDS ORDERED: HydrOXYzine PAMOATE 50 MG CAPSULE PO PRN (09:45)
[2020-01-14] MEDS: MAGNESIUM HYDROXIDE SUSPENSION 30 ML UDCUP PO PRN (17:18)
[2020-01-14] MEDS: THIAMINE 100 MG TABLET PO SCH (17:18)
[2020-01-14 17:50] VITALS: BP 113/65
[2020-01-14] MEDS: ZOLPIDEM TARTRATE 10 MG TABLET PO PRN (21:26)
[2020-01-14] MEDS: NITROFURANTOIN/NITROFURAN MAC 100 MG CAPSULE [MACROBID] PO SCH (21:35)
[2020-01-15] MEDS ORDERED: LURASIDONE HCL 40 MG TABLET PO SCH ×2 (07:30)
[2020-01-15 08:00] VITALS: BP 131/49
[2020-01-15 08:30] VITALS: BP 115/85
[2020-01-15] MEDS: NITROFURANTOIN/NITROFURAN MAC 100 MG CAPSULE [MACROBID] PO SCH ×2 (08:44→16:26)
[2020-01-15] MEDS: MULTIVITAMINS WITH MINERALS, THERAPEUTIC TABLET PO SCH (08:45)
[2020-01-15] MEDS: SIMVASTATIN 20 MG TABLET PO SCH (08:45)
[2020-01-15] MEDS: ESCITALOPRAM OXALATE 10 MG TABLET PO SCH ×2 (08:45→09:00)
[2020-01-15] MEDS: FOLIC ACID 1 MG TABLET PO SCH ×2 (08:45→09:00)
[2020-01-15] MEDS: LISINOPRIL 5 MG TABLET PO SCH ×2 (08:45→09:00)
[2020-01-15] MEDS: THIAMINE 100 MG TABLET PO SCH ×3 (08:45→16:27)
[2020-01-15] MEDS: NALTREXONE HCL 50 MG TABLET PO SCH ×2 (08:45→09:00)
[2020-01-15 16:50] VITALS: BP 107/70
[2020-01-15] MEDS: ZOLPIDEM TARTRATE 10 MG TABLET PO PRN (20:21)
[2020-01-16] MEDS ORDERED: LURASIDONE HCL 60 MG TABLET PO SCH (07:30)
[2020-01-16] MEDS ORDERED: NALT50TA PO (08:39)
[2020-01-16] MEDS ORDERED: ESCI-8 PO (08:39)
[2020-01-16] MEDS ORDERED: LURA60TA PO (08:39)
[2020-01-16] MEDS: LISINOPRIL 5 MG TABLET PO SCH (09:00)
[2020-01-16] MEDS: FOLIC ACID 1 MG TABLET PO SCH (09:00)
[2020-01-16] MEDS: NALTREXONE HCL 50 MG TABLET PO SCH (09:00)
[2020-01-16] MEDS: MULTIVITAMINS WITH MINERALS, THERAPEUTIC TABLET PO SCH (09:00)
[2020-01-16] MEDS: THIAMINE 100 MG TABLET PO SCH (09:00)
[2020-01-16] MEDS: SIMVASTATIN 20 MG TABLET PO SCH (09:00)
[2020-01-16] MEDS: NITROFURANTOIN/NITROFURAN MAC 100 MG CAPSULE [MACROBID] PO SCH (09:00)
[2020-01-16] MEDS ORDERED: ESCITALOPRAM OXALATE 10 MG TABLET PO SCH (09:00)
[2020-01-16] MEDS: MAGNESIUM HYDROXIDE SUSPENSION 30 ML UDCUP PO PRN (09:11)
[2020-01-16] MEDS ORDERED: MACR100 PO (09:13)
== END 2020-01-16 11:15 | disposition home or self-care (01) | DRG 751 ==
LOC: EMS 19:29 → 3EI 01-14 00:17
PROVIDERS: ADMIT Psychiatry & Neurology Psychiatry; ATTEND Psychiatry & Neurology Psychiatry
DX: F33.2 Major depressive disorder, recurrent severe without psychotic features (principal); R45.851 Suicidal ideations; I10 Essential (primary) hypertension; E78.5 Hyperlipidemia, unspecified; Z87.891 Personal history of nicotine dependence
CPT/HCPCS: 87086; 93005; G0480

== ENCOUNTER 2021-05-03 15:51 | Inpatient (IN) | payer MEDICAID ==
[~2021-05-03] VITALS: Ht 177.8 cm; Wt 95.7 kg
[~2021-05-03 15:51] MED LIST changes: -LISI-660 PO; +LISI-892 PO; +LURA60TA PO; +MACR100 PO; +NALT50TA PO
[2021-05-03 16:21] LABS: BASOPHILS % (AUTO) 0.6 % (0.0-2.0); EOSINOPHILS % (AUTO) 1.9 % (1.0-6.0); HEMOGLOBIN 15.3 g/dL (13.5-17.5); LYMPHOCYTES # (AUTO) 1.4 K/uL (1.0-4.8); LYMPHOCYTES % (AUTO) 17.1 % (22.0-44.0); MEAN CORPUSCULAR HGB CONC 34.8 G/dL (31.0-37.0); MEAN CORPUSCULAR VOLUME 86 fL (80-100); MONOCYTES # (AUTO) 0.9 K/uL (0.1-1.0); MONOCYTES % (AUTO) 11.6 % (2.0-9.0); NEUTROPHILS # (AUTO) 5.4 K/uL (1.8-7.7); NEUTROPHILS % (AUTO) 68.8 % (40.0-70.0); PLATELET COUNT (AUTO) 256 K/uL (150-450); RED BLOOD CELL COUNT(AUTO) 5.11 MIL/uL (4.50-5.90); RED CELL DISTRIBUTION WIDTH 12.6 % (11.5-14.5)
[2021-05-03 16:36] LABS: ANION GAP 5 mmol/L (8-16); CALCIUM, TOTAL 9.2 mg/dL (8.8-10.5); CARBON DIOXIDE 29 mmol/L (22-29); CHLORIDE 105 mmol/L (98-107); CREATININE 0.93 mg/dL (0.60-1.30); GLOMERULAR FILTR. RATE CALC > 60 mL/min (>60); GLUCOSE,RANDOM 88 mg/dL (70-110); POTASSIUM 4.2 mmol/L (3.5-5.1); SODIUM SERUM 139 mmol/L (136-145); UREA NITROGEN, BLOOD 25 mg/dL (7-18)
[2021-05-03 16:41] LABS: ALANINE AMINOTRANSFERASE 20 U/L (12-78); ALBUMIN 3.7 g/dL (3.4-5.0); ALKALINE PHOSPHATASE 48 U/L (46-116); ASPARTATE AMINOTRANSFERASE 10 U/L (15-37); BILIRUBIN,TOTAL 0.4 mg/dL (0.1-1.0)
[2021-05-03] MEDS ORDERED: OLANZapine 5 MG RAPDIS TABLET PO PRN (19:30)
[2021-05-03] MEDS ORDERED: ZOLPIDEM TARTRATE 10 MG TABLET PO PRN (19:30)
[2021-05-03 19:49] LABS: AMPHET/METH SCREEN,URINE NEGATIVE (NEGATIVE); BARBITURATE SCREEN, URINE NEGATIVE (NEGATIVE); BENZODIAZEPINES SCREEN,URINE NEGATIVE (NEGATIVE); CANNABINOID SCREEN,URINE POSITIVE (NEGATIVE); COCAINE SCREEN,URINE NEGATIVE (NEGATIVE); METHADONE SCREEN, URINE NEGATIVE (NEGATIVE); OPIATE SCREEN,URINE NEGATIVE (NEGATIVE)
[2021-05-03 20:04] LABS: PHENCYCLIDINE SCREEN,URINE NEGATIVE (NEGATIVE)
[2021-05-03 20:32] LABS: COVID AG,FIA SOURCE NASOPHARYNGEAL
[2021-05-03] MEDS ORDERED: METOPROLOL TARTRATE 25 MG TABLET PO ONE (21:00)
[2021-05-03] MEDS ORDERED: APIXABAN 5 MG TABLET PO ONE (21:00)
[2021-05-03] MEDS ORDERED: CETI-193 PO (21:04)
[2021-05-03] MEDS ORDERED: LISI-660 PO (21:04)
[2021-05-03] MEDS ORDERED: METO25 PO (21:04)
[2021-05-03] MEDS ORDERED: SIMV-46 PO (21:04)
[2021-05-03] MEDS ORDERED: APIX5TAB PO (21:04)
[2021-05-03] MEDS ORDERED: FINA-27 PO (21:04)
[2021-05-03] MEDS ORDERED: ESCI-8 PO (21:04)
[2021-05-03] MEDS: LORazepam 2 MG TABLET PO PRN (22:44)
[2021-05-04] MEDS: LORazepam 2 MG TABLET PO PRN ×2 (05:50→20:56)
[2021-05-04 06:52] LABS: CHOL/HDL RATIO 3.2 (4.2-7.3); CHOLESTEROL 139 mg/dL (131-200); HDL CHOLESTEROL 44 mg/dL (40-60); LDL CHOL (CALC.) 58 mg/dL (0-130); TRIGLYCERIDES 187 mg/dL (15-150)
[2021-05-04] MEDS ORDERED: MAG HYDROX/AL HYDROX/SIMETH ES 30 ML SUSPENSION UDCUP PO PRN (08:00)
[2021-05-04] MEDS ORDERED: LOPERAMIDE HCL 2 MG CAPSULE PO PRN (08:00)
[2021-05-04] MEDS ORDERED: HydrOXYzine PAMOATE 50 MG CAPSULE PO PRN (08:00)
[2021-05-04] MEDS ORDERED: MAGNESIUM HYDROXIDE SUSPENSION 30 ML UDCUP PO PRN (08:00)
[2021-05-04] MEDS ORDERED: ACETAMINOPHEN 325 MG TABLET PO PRN (08:00)
[2021-05-04] MEDS ORDERED: PROMETHAZINE HCL 25 MG TABLET PO PRN (08:00)
[2021-05-04] MEDS ORDERED: LURASIDONE HCL 20 MG TABLET PO PRN (08:00)
[2021-05-04] MEDS ORDERED: GuaiFENesin/D-METHORPHAN [SUGAR-FREE] 200-20MG/10 ML SYRUP UDCUP PO PRN (08:00)
[2021-05-04] MEDS: LURASIDONE HCL 40 MG TABLET PO SCH (09:53)
[2021-05-04] MEDS: OMEGA-3/DHA/EPA/FISH OIL 1,000 MG CAPSULE PO SCH (09:53)
[2021-05-04] MEDS: FOLIC ACID 1 MG TABLET PO SCH (09:54)
[2021-05-04] MEDS: MULTIVITAMINS WITH MINERALS, THERAPEUTIC TABLET PO SCH (09:54)
[2021-05-04] MEDS: THIAMINE 100 MG TABLET PO SCH (09:54)
[2021-05-04] MEDS: NALTREXONE HCL 50 MG TABLET PO SCH (09:54)
[2021-05-04] MEDS: ESCITALOPRAM OXALATE 10 MG TABLET PO SCH (09:54)
[2021-05-04 18:38] VITALS: BP 139/88
[2021-05-04] MEDS: MELATONIN 5 MG TABLET PO SCH (21:14)
[2021-05-04] MEDS: SIMVASTATIN 40 MG TABLET PO SCH (21:14)
[2021-05-04] MEDS: APIXABAN 5 MG TABLET PO SCH (21:15)
[2021-05-04] MEDS: FINASTERIDE 5 MG TABLET PO SCH (21:15)
[2021-05-04] MEDS: LISINOPRIL 5 MG TABLET PO SCH (21:15)
[2021-05-04] MEDS: CETIRIZINE HCL 10 MG TABLET PO SCH (21:15)
[2021-05-04] MEDS: METOPROLOL TARTRATE 25 MG TABLET PO SCH (21:22)
[2021-05-05 05:53] VITALS: BP 107/65
[2021-05-05] MEDS: LURASIDONE HCL 40 MG TABLET PO SCH (07:05)
[2021-05-05 08:39] VITALS: BP 114/65
[2021-05-05] MEDS ORDERED: PALIPERIDONE PALMITATE 234 MG/1.5 ML SYRINGE IM ONE (09:00)
[2021-05-05] MEDS: FOLIC ACID 1 MG TABLET PO SCH (09:15)
[2021-05-05] MEDS: NALTREXONE HCL 50 MG TABLET PO SCH (09:15)
[2021-05-05] MEDS: OMEGA-3/DHA/EPA/FISH OIL 1,000 MG CAPSULE PO SCH (09:15)
[2021-05-05] MEDS: LISINOPRIL 5 MG TABLET PO SCH (09:15)
[2021-05-05] MEDS: THIAMINE 100 MG TABLET PO SCH ×2 (09:15→16:31)
[2021-05-05] MEDS: METOPROLOL TARTRATE 25 MG TABLET PO SCH (09:16)
[2021-05-05] MEDS: ESCITALOPRAM OXALATE 10 MG TABLET PO SCH (09:17)
[2021-05-05] MEDS: MULTIVITAMINS WITH MINERALS, THERAPEUTIC TABLET PO SCH (09:17)
[2021-05-05] MEDS: SIMVASTATIN 40 MG TABLET PO SCH (09:18)
[2021-05-05] MEDS: CETIRIZINE HCL 10 MG TABLET PO SCH (09:18)
[2021-05-05] MEDS: FINASTERIDE 5 MG TABLET PO SCH (09:18)
[2021-05-05] MEDS: APIXABAN 5 MG TABLET PO SCH ×2 (11:52→16:31)
[2021-05-05] MEDS ORDERED: LURA40TA2 PO (13:29)
[2021-05-05] MEDS ORDERED: NALT50TA PO (13:29)
[2021-05-05] MEDS ORDERED: ESCI10 PO (13:29)
[2021-05-05] MEDS ORDERED: MIRT-89 PO (13:29)
[2021-05-05] MEDS ORDERED: OMEG-135 PO (13:29)
[2021-05-05] MEDS ORDERED: MELA5TAB40 PO (13:29)
[2021-05-05 16:17] VITALS: BP 107/64
[2021-05-05] MEDS: LORazepam 2 MG TABLET PO PRN (19:53)
[2021-05-05] MEDS: MELATONIN 5 MG TABLET PO SCH (20:31)
[2021-05-05] MEDS ORDERED: MIRTAZAPINE 15 MG TABLET PO SCH (21:00)
[2021-05-06] MEDS: LORazepam 2 MG TABLET PO PRN (03:01)
[2021-05-06 04:09] VITALS: BP 129/85
[2021-05-06] MEDS: LURASIDONE HCL 40 MG TABLET PO SCH (07:00)
[2021-05-06] MEDS: METOPROLOL TARTRATE 25 MG TABLET PO SCH (08:24)
[2021-05-06] MEDS: FINASTERIDE 5 MG TABLET PO SCH (08:24)
[2021-05-06] MEDS: THIAMINE 100 MG TABLET PO SCH (08:24)
[2021-05-06] MEDS: APIXABAN 5 MG TABLET PO SCH (08:24)
[2021-05-06] MEDS: FOLIC ACID 1 MG TABLET PO SCH (08:24)
[2021-05-06] MEDS: ESCITALOPRAM OXALATE 10 MG TABLET PO SCH (08:24)
[2021-05-06] MEDS: LISINOPRIL 5 MG TABLET PO SCH (08:24)
[2021-05-06] MEDS: CETIRIZINE HCL 10 MG TABLET PO SCH (08:24)
[2021-05-06] MEDS: MULTIVITAMINS WITH MINERALS, THERAPEUTIC TABLET PO SCH (08:24)
[2021-05-06] MEDS: NALTREXONE HCL 50 MG TABLET PO SCH (08:25)
[2021-05-06] MEDS: OMEGA-3/DHA/EPA/FISH OIL 1,000 MG CAPSULE PO SCH (08:25)
[2021-05-06 08:36] VITALS: BP 124/71
[2021-05-06] MEDS ORDERED: SIMVASTATIN 40 MG TABLET PO SCH (21:00)
[2021-05-09] MEDS ORDERED: PALIPERIDONE PALMITATE 156 MG/ML SYRINGE IM ONE (09:00)
== END 2021-05-06 14:06 | disposition home or self-care (01) | DRG 750 ==
LOC: EMS 15:56 → B3A 05-04 17:08 → B2S 05-05 13:30 → B3A 05-05 18:19
PROVIDERS: ADMIT Psychiatry & Neurology Psychiatry; ATTEND Psychiatry & Neurology Psychiatry
DX: F25.9 Schizoaffective disorder, unspecified (principal); F33.2 Major depressive disorder, recurrent severe without psychotic features; R45.851 Suicidal ideations; B19.20 Unspecified viral hepatitis C without hepatic coma; Z20.822 Contact with and (suspected) exposure to COVID-19; E78.00 Pure hypercholesterolemia, unspecified; E78.5 Hyperlipidemia, unspecified; F12.90 Cannabis use, unspecified, uncomplicated; F17.210 Nicotine dependence, cigarettes, uncomplicated; F19.11 Other psychoactive substance abuse, in remission; I10 Essential (primary) hypertension; I48.91 Unspecified atrial fibrillation; J30.9 Allergic rhinitis, unspecified; J44.9 Chronic obstructive pulmonary disease, unspecified; K50.90 Crohn's disease, unspecified, without complications; N40.0 Benign prostatic hyperplasia without lower urinary tract symptoms; Z55.9 Problems related to education and literacy, unspecified; Z59.9 Problem related to housing and economic circumstances, unspecified; Z63.9 Problem related to primary support group, unspecified; Z65.3 Problems related to other legal circumstances; Z79.01 Long term (current) use of anticoagulants
CPT/HCPCS: 80053; 80061; 84484; 85025; 99285; G0480; Q9967

== ENCOUNTER 2021-10-29 20:38 | Inpatient (IN) | payer MEDICAID ==
[~2021-10-29] VITALS: Ht 177.8 cm; Wt 95.5 kg
[~2021-10-29 20:38] MED LIST changes: +APIX5TAB PO; +CETI-193 PO; +ESCI10 PO; +FINA-27 PO; +LISI-660 PO; -LISI-892 PO; +LURA40TA2 PO; -LURA60TA PO; -MACR100 PO; +MELA5TAB40 PO; +METO25 PO; +MIRT-89 PO; +OMEG-108 PO; -SIMV-260 PO; +SIMV-46 PO
[2021-10-29] MEDS ORDERED: HALOPERIDOL 5 MG TABLET PO PRN (23:00)
[2021-10-29] MEDS ORDERED: ZOLPIDEM TARTRATE 10 MG TABLET PO PRN (23:00)
[2021-10-29] MEDS ORDERED: LORazepam 2 MG TABLET PO PRN (23:00)
[2021-10-29 23:10] LABS: APPEARANCE,URINE CLEAR (CLEAR); BILIRUBIN,URINE NEGATIVE (NEGATIVE); GLUCOSE, URINE (UA) NEGATIVE (NEGATIVE); KETONES,URINE NEGATIVE (NEGATIVE); LEUKOCYTE ESTERASE ,URINE NEGATIVE (NEGATIVE); NITRATE,URINE NEGATIVE (NEGATIVE); OCCULT BLOOD,URINE NEGATIVE (NEGATIVE); PH,URINE 5.5 (5.0-8.0); PROTEIN,URINE NEGATIVE (NEGATIVE); SPECIFIC GRAVITIY, URINE 1.032 (1.003-1.030); UROBILINOGEN,URINE <=1.0 mg/dL (<=1.0)
[2021-10-30 05:03] LABS: COVID AG,FIA SOURCE NASAL SWAB
[2021-10-30] MEDS ORDERED: ONDANSETRON HCL 4 MG TABLET PO PRN (08:30)
[2021-10-30] MEDS ORDERED: LOPERAMIDE HCL 2 MG CAPSULE PO PRN (08:30)
[2021-10-30] MEDS ORDERED: DOCUSATE SODIUM 100 MG CAPSULE PO PRN (08:30)
[2021-10-30] MEDS ORDERED: ACETAMINOPHEN 325 MG TABLET PO PRN (08:30)
[2021-10-30] MEDS ORDERED: NICOTINE 14 MG/24 HOUR PATCH TD PRN (08:30)
[2021-10-30] MEDS ORDERED: CloNIDine HCL 0.1 MG TABLET PO PRN (08:30)
[2021-10-30] MEDS ORDERED: MAGNESIUM HYDROXIDE SUSPENSION 30 ML UDCUP PO PRN (08:30)
[2021-10-30] MEDS ORDERED: ALBUTEROL SULFATE HFA 90 MCG/PUFF 8 GM INHALER IH PRN (08:30)
[2021-10-30] MEDS ORDERED: GuaiFENesin/D-METHORPHAN [SUGAR-FREE] 200-20MG/10 ML SYRUP UDCUP PO PRN (08:30)
[2021-10-30] MEDS ORDERED: PETROLATUM,WHITE 28 GM JELLY TP PRN (08:30)
[2021-10-30] MEDS ORDERED: MAG HYDROX/AL HYDROX/SIMETH ES 30 ML SUSPENSION UDCUP PO PRN (08:30)
[2021-10-30 09:00] VITALS: BP 119/74
[2021-10-30] MEDS: CETIRIZINE HCL 10 MG TABLET PO SCH (09:00)
[2021-10-30] MEDS: FINASTERIDE 5 MG TABLET PO SCH (09:00)
[2021-10-30] MEDS: APIXABAN 5 MG TABLET PO SCH ×2 (09:00→16:10)
[2021-10-30] MEDS: OMEGA-3/DHA/EPA/FISH OIL 1,000 MG CAPSULE PO SCH (09:27)
[2021-10-30] MEDS: LISINOPRIL 5 MG TABLET PO SCH (09:27)
[2021-10-30] MEDS: METOPROLOL TARTRATE 25 MG TABLET PO SCH ×2 (09:27→16:11)
[2021-10-30] MEDS: ESCITALOPRAM OXALATE 10 MG TABLET PO SCH (12:49)
[2021-10-30 16:15] VITALS: BP 122/83
[2021-10-30] MEDS: SIMVASTATIN 40 MG TABLET PO SCH (18:02)
[2021-10-30] MEDS: MELATONIN 5 MG TABLET PO SCH (20:03)
[2021-10-30] MEDS ORDERED: MELATONIN 5 MG TABLET PO SCH (21:00)
[2021-10-31 03:33] VITALS: BP 119/76
[2021-10-31 07:02] LABS: AMPHET/METH SCREEN,URINE NEGATIVE (NEGATIVE); BARBITURATE SCREEN, URINE NEGATIVE (NEGATIVE); BENZODIAZEPINES SCREEN,URINE NEGATIVE (NEGATIVE); CANNABINOID SCREEN,URINE POSITIVE (NEGATIVE); COCAINE SCREEN,URINE NEGATIVE (NEGATIVE); METHADONE SCREEN, URINE NEGATIVE (NEGATIVE); OPIATE SCREEN,URINE NEGATIVE (NEGATIVE)
[2021-10-31 07:05] LABS: PHENCYCLIDINE SCREEN,URINE NEGATIVE (NEGATIVE)
[2021-10-31 08:56] VITALS: BP 112/77
[2021-10-31] MEDS: METOPROLOL TARTRATE 25 MG TABLET PO SCH ×2 (09:39→16:21)
[2021-10-31] MEDS: ESCITALOPRAM OXALATE 10 MG TABLET PO SCH (09:39)
[2021-10-31] MEDS: LISINOPRIL 5 MG TABLET PO SCH (09:39)
[2021-10-31] MEDS: CETIRIZINE HCL 10 MG TABLET PO SCH (09:39)
[2021-10-31] MEDS: FINASTERIDE 5 MG TABLET PO SCH (09:39)
[2021-10-31] MEDS: OMEGA-3/DHA/EPA/FISH OIL 1,000 MG CAPSULE PO SCH (09:39)
[2021-10-31] MEDS: APIXABAN 5 MG TABLET PO SCH ×2 (09:39→16:20)
[2021-10-31 16:10] VITALS: BP 116/69
[2021-10-31] MEDS: SIMVASTATIN 40 MG TABLET PO SCH (19:15)
[2021-10-31] MEDS: MELATONIN 5 MG TABLET PO SCH (20:23)
[2021-11-01] MEDS: LISINOPRIL 5 MG TABLET PO SCH (08:15)
[2021-11-01] MEDS: ESCITALOPRAM OXALATE 10 MG TABLET PO SCH (08:15)
[2021-11-01] MEDS: OMEGA-3/DHA/EPA/FISH OIL 1,000 MG CAPSULE PO SCH (08:15)
[2021-11-01] MEDS: METOPROLOL TARTRATE 25 MG TABLET PO SCH (08:16)
[2021-11-01] MEDS: CETIRIZINE HCL 10 MG TABLET PO SCH (08:16)
[2021-11-01] MEDS: FINASTERIDE 5 MG TABLET PO SCH (08:16)
[2021-11-01] MEDS: APIXABAN 5 MG TABLET PO SCH (08:16)
[2021-11-01] MEDS ORDERED: ESCI10 PO (13:01)
[2021-11-01] MEDS ORDERED: MELA5TAB40 PO (13:01)
== END 2021-11-01 10:50 | disposition home or self-care (01) | DRG 750 ==
LOC: EMS 20:42 → B3A 10-30 04:25
PROVIDERS: ADMIT Psychiatry & Neurology Child & Adolescent Psychiatry; ATTEND Psychiatry & Neurology Child & Adolescent Psychiatry
DX: F25.1 Schizoaffective disorder, depressive type (principal); R45.851 Suicidal ideations; B18.2 Chronic viral hepatitis C; Z20.822 Contact with and (suspected) exposure to COVID-19; E78.5 Hyperlipidemia, unspecified; F31.9 Bipolar disorder, unspecified; I10 Essential (primary) hypertension; I48.91 Unspecified atrial fibrillation; J44.9 Chronic obstructive pulmonary disease, unspecified; K21.9 Gastro-esophageal reflux disease without esophagitis; N40.0 Benign prostatic hyperplasia without lower urinary tract symptoms; F41.9 Anxiety disorder, unspecified; Z79.899 Other long term (current) drug therapy
CPT/HCPCS: 80307; 81003; 99285; Q9967

== ENCOUNTER 2022-05-03 17:56 | Emergency (ER) | payer MEDICAID ==
[~2022-05-03 17:56] MED LIST changes: -LURA40TA2 PO; -MIRT-89 PO; -NALT50TA PO; -OMEG-108 PO
== END 2022-05-03 18:00 | disposition left against medical advice (07) ==
LOC: EMS 18:00
DX: Z53.21 Procedure and treatment not carried out due to patient leaving prior to being seen by health care provider (principal)

== ENCOUNTER 2023-01-04 11:20 | Inpatient (IN) | payer MEDICAID ==
[~2023-01-04] VITALS: Ht 177.8 cm; Wt 93.6 kg
[2023-01-04] MEDS ORDERED: ZOLPIDEM TARTRATE 10 MG TABLET PO PRN (11:45)
[2023-01-04] MEDS ORDERED: LORazepam 2 MG TABLET PO PRN (11:45)
[2023-01-04] MEDS ORDERED: PNEUMOCOCCAL VACCINE POLYVALENT 0.5 ML SYRINGE [PPSV23] IM. ONE (17:15)
[2023-01-04] MEDS: METOPROLOL TARTRATE 25 MG TABLET PO SCH (19:53)
[2023-01-04 20:13] VITALS: BP 109/70; PULSE 63; RESP 18; TEMP 97.8; O2SAT 96
[2023-01-04] MEDS: SIMVASTATIN 10 MG TABLET PO SCH (20:15)
[2023-01-05 08:18] VITALS: BP 100/63; PULSE 61; RESP 18; TEMP 97.7; O2SAT 90
[2023-01-05] MEDS: LISINOPRIL 5 MG TABLET PO SCH (08:36)
[2023-01-05] MEDS: APIXABAN 5 MG TABLET PO SCH ×2 (08:36→17:23)
[2023-01-05] MEDS: METOPROLOL TARTRATE 25 MG TABLET PO SCH ×2 (08:37→17:24)
[2023-01-05] MEDS: TAMSULOSIN HCL 0.4 MG CAPSULE PO SCH (08:37)
[2023-01-05] MEDS ORDERED: MAGNESIUM HYDROXIDE SUSPENSION 30 ML UDCUP PO PRN (08:45)
[2023-01-05] MEDS ORDERED: OMEPRAZOLE 20 MG CAPSULE PO PRN (08:45)
[2023-01-05] MEDS ORDERED: ALBUTEROL SULFATE HFA 90 MCG/PUFF 8 GM INHALER IH PRN (08:45)
[2023-01-05] MEDS ORDERED: MAG HYDROX/AL HYDROX/SIMETH ES 30 ML SUSPENSION UDCUP PO PRN (08:45)
[2023-01-05] MEDS ORDERED: CloNIDine HCL 0.1 MG TABLET PO PRN (08:45)
[2023-01-05] MEDS ORDERED: LOPERAMIDE HCL 2 MG CAPSULE PO PRN (08:45)
[2023-01-05] MEDS ORDERED: BACITRACIN 28 GM OINTMENT TP PRN (08:45)
[2023-01-05] MEDS ORDERED: DOCUSATE SODIUM 100 MG CAPSULE PO PRN (08:45)
[2023-01-05] MEDS ORDERED: BENZOCAINE/MENTHOL LOZENGE PO PRN (08:45)
[2023-01-05] MEDS ORDERED: ONDANSETRON HCL 4 MG TABLET PO PRN (08:45)
[2023-01-05] MEDS ORDERED: PETROLATUM,WHITE 28 GM JELLY TP PRN (08:45)
[2023-01-05] MEDS ORDERED: IBUPROFEN 600 MG TABLET PO PRN (08:45)
[2023-01-05] MEDS ORDERED: ACETAMINOPHEN 325 MG TABLET PO PRN (08:45)
[2023-01-05] MEDS: ESCITALOPRAM OXALATE 10 MG TABLET PO SCH (13:24)
[2023-01-05] MEDS: SIMVASTATIN 10 MG TABLET PO SCH (20:10)
[2023-01-05 20:27] VITALS: BP 107/66; PULSE 70; RESP 18; TEMP 98; O2SAT 96
[2023-01-06] MEDS ORDERED: ESCI-8 PO (08:00)
[2023-01-06] MEDS ORDERED: METO25 PO (08:03)
[2023-01-06] MEDS ORDERED: APIX5TAB PO (08:03)
[2023-01-06] MEDS ORDERED: LISI-892 PO (08:08)
[2023-01-06] MEDS ORDERED: TAMS-13 PO (08:09)
[2023-01-06] MEDS ORDERED: SIMV-259 PO (08:09)
[2023-01-06 08:16] VITALS: BP 100/60; PULSE 60; RESP 17; TEMP 97.7; O2SAT 98
[2023-01-06] MEDS: LISINOPRIL 5 MG TABLET PO SCH ×2 (08:50→08:55)
[2023-01-06] MEDS: METOPROLOL TARTRATE 25 MG TABLET PO SCH ×2 (08:51→08:55)
[2023-01-06] MEDS: ESCITALOPRAM OXALATE 10 MG TABLET PO SCH (08:51)
[2023-01-06] MEDS: TAMSULOSIN HCL 0.4 MG CAPSULE PO SCH (08:51)
[2023-01-06] MEDS: APIXABAN 5 MG TABLET PO SCH (08:52)
== END 2023-01-06 10:30 | disposition home or self-care (01) | DRG 750 ==
LOC: B3A 14:06
PROVIDERS: ADMIT Psychiatry & Neurology Psychiatry; ATTEND Psychiatry & Neurology Psychiatry
DX: F25.9 Schizoaffective disorder, unspecified (principal); R45.851 Suicidal ideations; F41.9 Anxiety disorder, unspecified; I10 Essential (primary) hypertension; J44.9 Chronic obstructive pulmonary disease, unspecified; K21.9 Gastro-esophageal reflux disease without esophagitis; K59.00 Constipation, unspecified; G47.00 Insomnia, unspecified; Z71.6 Tobacco abuse counseling; Z72.0 Tobacco use; Z59.00 Homelessness unspecified; Z82.49 Family history of ischemic heart disease and other diseases of the circulatory system
CPT/HCPCS: Z7610

== ENCOUNTER 2023-01-20 23:53 | Inpatient (IN) | payer MEDICAID ==
[~2023-01-20] VITALS: Ht 177.8 cm; Wt 91.0 kg
[~2023-01-20 23:53] MED LIST changes: -CETI-193 PO; -ESCI10 PO; -FINA-27 PO; -LISI-660 PO; +LISI-892 PO; -MELA5TAB40 PO; +SIMV-259 PO; -SIMV-46 PO; +TAMS-13 PO
[2023-01-21] MEDS ORDERED: OLANZapine 5 MG RAPDIS TABLET PO PRN (01:30)
[2023-01-21] MEDS ORDERED: ZOLPIDEM TARTRATE 10 MG TABLET PO PRN (01:30)
[2023-01-21 02:46] LABS: COVID AG,FIA SOURCE NASAL SWAB
[2023-01-21 03:11] LABS: APPEARANCE,URINE CLEAR (CLEAR); BILIRUBIN,URINE NEGATIVE (NEGATIVE); COLOR,URINE LIGHT YELLOW (YELLOW); GLUCOSE, URINE (UA) NEGATIVE (NEGATIVE); KETONES,URINE NEGATIVE (NEGATIVE); LEUKOCYTE ESTERASE ,URINE NEGATIVE (NEGATIVE); NITRATE,URINE NEGATIVE (NEGATIVE); OCCULT BLOOD,URINE NEGATIVE (NEGATIVE); PROTEIN,URINE NEGATIVE (NEGATIVE); SPECIFIC GRAVITIY, URINE 1.032 (1.003-1.030); UROBILINOGEN,URINE <=1.0 mg/dL (<=1.0)
[2023-01-21 03:15] LABS: AMPHET/METH SCREEN,URINE NEGATIVE (NEGATIVE); BARBITURATE SCREEN, URINE NEGATIVE (NEGATIVE); BENZODIAZEPINES SCREEN,URINE NEGATIVE (NEGATIVE); CANNABINOID SCREEN,URINE NEGATIVE (NEGATIVE); COCAINE SCREEN,URINE NEGATIVE (NEGATIVE); METHADONE SCREEN, URINE NEGATIVE (NEGATIVE); OPIATE SCREEN,URINE NEGATIVE (NEGATIVE); PHENCYCLIDINE SCREEN,URINE NEGATIVE (NEGATIVE)
[2023-01-21 03:19] LABS: SARS-COV2 (COVID) ANTIGEN,FIA Negative (Negative)
[2023-01-21 03:20] LABS: ALCOHOL, URINE DRUG SCREEN NEGATIVE (NEGATIVE)
[2023-01-21] MEDS: METOPROLOL TARTRATE 25 MG TABLET PO SCH ×2 (09:44→22:04)
[2023-01-21] MEDS: APIXABAN 5 MG TABLET PO SCH ×2 (09:44→22:04)
[2023-01-21] MEDS: TAMSULOSIN HCL 0.4 MG CAPSULE PO SCH (09:44)
[2023-01-21] MEDS: LISINOPRIL 5 MG TABLET PO SCH (10:48)
[2023-01-21] MEDS: SIMVASTATIN 10 MG TABLET PO SCH (21:00)
[2023-01-22] MEDS: SIMVASTATIN 10 MG TABLET PO SCH (02:58)
[2023-01-22] MEDS ORDERED: ESCITALOPRAM OXALATE 10 MG TABLET PO ONE (09:15)
[2023-01-22] MEDS: TAMSULOSIN HCL 0.4 MG CAPSULE PO SCH (09:21)
[2023-01-22] MEDS: APIXABAN 5 MG TABLET PO SCH ×2 (09:21→21:05)
[2023-01-22] MEDS: METOPROLOL TARTRATE 25 MG TABLET PO SCH ×2 (09:21→21:05)
[2023-01-22] MEDS: LISINOPRIL 5 MG TABLET PO SCH (10:32)
[2023-01-23] MEDS: METOPROLOL TARTRATE 25 MG TABLET PO SCH ×2 (08:26→17:36)
[2023-01-23] MEDS: APIXABAN 5 MG TABLET PO SCH ×2 (08:26→17:36)
[2023-01-23] MEDS: TAMSULOSIN HCL 0.4 MG CAPSULE PO SCH (08:26)
[2023-01-23] MEDS: LISINOPRIL 5 MG TABLET PO SCH (09:17)
[2023-01-23 10:05] VITALS: BP 132/70; PULSE 60; RESP 18; TEMP 98.2; O2SAT 98
[2023-01-23 10:12] VITALS: BP 132/70; PULSE 60; RESP 18; TEMP 98.2
[2023-01-23] MEDS ORDERED: PNEUMOCOCCAL VACCINE POLYVALENT 0.5 ML SYRINGE [PPSV23] IM. ONE (11:30)
[2023-01-23 16:00] VITALS: TEMP 98
[2023-01-23] MEDS: SIMVASTATIN 10 MG TABLET PO SCH (20:17)
[2023-01-23] MEDS: LORazepam 2 MG TABLET PO PRN (22:45)
[2023-01-24 00:07] VITALS: RESP 18
[2023-01-24] MEDS: LORazepam 2 MG TABLET PO PRN (05:08)
[2023-01-24] MEDS ORDERED: DOCUSATE SODIUM 100 MG CAPSULE PO PRN (07:30)
[2023-01-24] MEDS ORDERED: ONDANSETRON HCL 4 MG TABLET PO PRN (07:30)
[2023-01-24] MEDS ORDERED: MAGNESIUM HYDROXIDE SUSPENSION 30 ML UDCUP PO PRN (07:30)
[2023-01-24] MEDS ORDERED: CloNIDine HCL 0.1 MG TABLET PO PRN (07:30)
[2023-01-24] MEDS ORDERED: BACITRACIN 28 GM OINTMENT TP PRN (07:30)
[2023-01-24] MEDS ORDERED: BENZOCAINE/MENTHOL LOZENGE PO PRN (07:30)
[2023-01-24] MEDS ORDERED: PETROLATUM,WHITE 28 GM JELLY TP PRN (07:30)
[2023-01-24] MEDS ORDERED: ALBUTEROL SULFATE HFA 90 MCG/PUFF 8 GM INHALER IH PRN (07:30)
[2023-01-24] MEDS ORDERED: MAG HYDROX/AL HYDROX/SIMETH ES 30 ML SUSPENSION UDCUP PO PRN (07:30)
[2023-01-24] MEDS ORDERED: ACETAMINOPHEN 325 MG TABLET PO PRN (07:30)
[2023-01-24] MEDS ORDERED: IBUPROFEN 600 MG TABLET PO PRN (07:30)
[2023-01-24] MEDS ORDERED: LOPERAMIDE HCL 2 MG CAPSULE PO PRN (07:30)
[2023-01-24] MEDS ORDERED: OMEPRAZOLE 20 MG CAPSULE PO PRN (07:30)
[2023-01-24] MEDS: APIXABAN 5 MG TABLET PO SCH ×2 (08:35→17:00)
[2023-01-24] MEDS: LISINOPRIL 5 MG TABLET PO SCH (08:35)
[2023-01-24] MEDS: TAMSULOSIN HCL 0.4 MG CAPSULE PO SCH (08:35)
[2023-01-24] MEDS: METOPROLOL TARTRATE 25 MG TABLET PO SCH ×2 (08:35→17:00)
[2023-01-24] MEDS ORDERED: ESCITALOPRAM OXALATE 10 MG TABLET PO SCH (09:00)
[2023-01-24 09:41] VITALS: BP 126/79; PULSE 60; RESP 18; TEMP 97.5; O2SAT 98
== END 2023-01-24 11:50 | disposition home or self-care (01) | DRG 750 ==
LOC: EMS 23:53 → 3EI 01-23 09:20
PROVIDERS: ADMIT Psychiatry & Neurology Psychiatry; ATTEND Psychiatry & Neurology Psychiatry
DX: F20.9 Schizophrenia, unspecified (principal); R45.851 Suicidal ideations; F32.9 Major depressive disorder, single episode, unspecified; F41.9 Anxiety disorder, unspecified; Z20.822 Contact with and (suspected) exposure to COVID-19; J44.9 Chronic obstructive pulmonary disease, unspecified; G47.00 Insomnia, unspecified; I10 Essential (primary) hypertension; K21.9 Gastro-esophageal reflux disease without esophagitis; K59.00 Constipation, unspecified; Z72.0 Tobacco use; Z88.8 Allergy status to other drugs, medicaments and biological substances; Z79.899 Other long term (current) drug therapy; Z86.19 Personal history of other infectious and parasitic diseases; Z82.49 Family history of ischemic heart disease and other diseases of the circulatory system
CPT/HCPCS: 80307; 81003; 99285

== ENCOUNTER 2023-04-08 20:18 | Inpatient (IN) | payer MEDICAID ==
[~2023-04-08] VITALS: Ht 177.8 cm; Wt 97.1 kg
[~2023-04-08 20:18] MED LIST changes: -TAMS-13 PO; +TAMS0.4C94 PO
[2023-04-08 22:43] LABS: COVID AG,FIA SOURCE NASAL SWAB
[2023-04-08 22:59] LABS: SARS-COV2 (COVID) ANTIGEN,FIA Negative (Negative)
[2023-04-08 23:21] LABS: BASOPHILS % (AUTO) 0.5 % (0.0-2.0); HEMATOCRIT 41.6 % (41-53); HEMOGLOBIN 14.1 g/dL (13.5-17.5); LYMPHOCYTES # (AUTO) 1.7 K/uL (1.0-4.8); LYMPHOCYTES % (AUTO) 21.8 % (22.0-44.0); MEAN CORPUSCULAR HEMOGLOBIN 30.1 pg (26.0-34.0); MEAN CORPUSCULAR HGB CONC 33.8 G/dL (31.0-37.0); MEAN CORPUSCULAR VOLUME 89 fL (80-100); MONOCYTES # (AUTO) 0.5 K/uL (0.1-1.0); MONOCYTES % (AUTO) 6.1 % (2.0-9.0); NEUTROPHILS # (AUTO) 5.5 K/uL (1.8-7.7); NEUTROPHILS % (AUTO) 70.6 % (40.0-70.0); PLATELET COUNT (AUTO) 270 K/uL (150-450); RED BLOOD CELL COUNT(AUTO) 4.67 MIL/uL (4.50-5.90); RED CELL DISTRIBUTION WIDTH 12.7 % (11.5-14.5); WHITE BLOOD COUNT (AUTO) 7.8 K/uL (4.5-11.0)
[2023-04-08 23:34] LABS: ANION GAP 4 mmol/L (8-16); CALCIUM, TOTAL 9.3 mg/dL (8.8-10.5); CARBON DIOXIDE 33 mmol/L (22-29); CHLORIDE 104 mmol/L (98-107); CREATININE 0.91 mg/dL (0.60-1.30); GLOMERULAR FILTR. RATE CALC > 60 mL/min (>60); GLUCOSE,RANDOM 93 mg/dL (70-110); POTASSIUM 4.2 mmol/L (3.5-5.1); SODIUM SERUM 141 mmol/L (136-145); UREA NITROGEN, BLOOD 20 mg/dL (7-18)
[2023-04-08 23:38] LABS: ALANINE AMINOTRANSFERASE 25 U/L (12-78); ALBUMIN 3.4 g/dL (3.4-5.0); ALKALINE PHOSPHATASE 57 U/L (46-116); ASPARTATE AMINOTRANSFERASE 16 U/L (15-37); BILIRUBIN,TOTAL 0.2 mg/dL (0.1-1.0); TOTAL PROTEIN, SERUM 6.6 g/dL (6.4-8.2)
[2023-04-08 23:44] LABS: ALCOHOL, BLOOD (SERUM) < 3 mg/dL (0-10)
[2023-04-09] MEDS ORDERED: ZOLPIDEM TARTRATE 10 MG TABLET PO PRN (00:30)
[2023-04-09] MEDS ORDERED: OLANZapine 10 MG TABLET PO PRN (00:30)
[2023-04-09 08:51] LABS: APPEARANCE,URINE CLEAR (CLEAR); BILIRUBIN,URINE NEGATIVE (NEGATIVE); COLOR,URINE LIGHT YELLOW (YELLOW); GLUCOSE, URINE (UA) NEGATIVE (NEGATIVE); KETONES,URINE NEGATIVE (NEGATIVE); LEUKOCYTE ESTERASE ,URINE NEGATIVE (NEGATIVE); NITRATE,URINE NEGATIVE (NEGATIVE); OCCULT BLOOD,URINE NEGATIVE (NEGATIVE); PROTEIN,URINE NEGATIVE (NEGATIVE); SPECIFIC GRAVITIY, URINE 1.015 (1.003-1.030); UROBILINOGEN,URINE <=1.0 mg/dL (<=1.0)
[2023-04-09 08:57] LABS: AMPHET/METH SCREEN,URINE NEGATIVE (NEGATIVE); BARBITURATE SCREEN, URINE NEGATIVE (NEGATIVE); BENZODIAZEPINES SCREEN,URINE POSITIVE (NEGATIVE); CANNABINOID SCREEN,URINE POSITIVE (NEGATIVE); COCAINE SCREEN,URINE NEGATIVE (NEGATIVE); METHADONE SCREEN, URINE NEGATIVE (NEGATIVE); OPIATE SCREEN,URINE NEGATIVE (NEGATIVE); PHENCYCLIDINE SCREEN,URINE NEGATIVE (NEGATIVE)
[2023-04-09 08:58] LABS: ALCOHOL, URINE DRUG SCREEN NEGATIVE (NEGATIVE)
[2023-04-09] MEDS: LORazepam 1 MG TABLET PO PRN ×3 (14:06→23:05)
[2023-04-09] MEDS ORDERED: SIMV-46 PO (18:02)
[2023-04-09] MEDS ORDERED: CETI10TA58 PO (18:02)
[2023-04-09 18:25] VITALS: BP 109/60; PULSE 78; RESP 21; TEMP 97.1; O2SAT 96
[2023-04-09] MEDS ORDERED: GuaiFENesin/D-METHORPHAN [SUGAR-FREE] 200-20MG/10 ML SYRUP UDCUP PO PRN (19:00)
[2023-04-09] MEDS ORDERED: ALBUTEROL SULFATE HFA 90 MCG/PUFF 8 GM INHALER IH PRN (19:00)
[2023-04-09] MEDS ORDERED: MAG HYDROX/ALUMINUM HYD/SIMETH ES 30 ML SUSPENSION UDCUP PO PRN (19:00)
[2023-04-09] MEDS ORDERED: DOCUSATE SODIUM 100 MG CAPSULE PO PRN (19:00)
[2023-04-09] MEDS ORDERED: ONDANSETRON HCL 4 MG TABLET PO PRN (19:00)
[2023-04-09] MEDS ORDERED: CloNIDine HCL 0.1 MG TABLET PO PRN (19:00)
[2023-04-09] MEDS ORDERED: NICOTINE 14 MG/24 HOUR PATCH TD PRN (19:00)
[2023-04-09] MEDS ORDERED: MAGNESIUM HYDROXIDE SUSPENSION 30 ML UDCUP PO PRN (19:00)
[2023-04-09] MEDS ORDERED: LOPERAMIDE HCL 2 MG CAPSULE PO PRN (19:00)
[2023-04-09] MEDS ORDERED: PETROLATUM,WHITE 28 GM JELLY TP PRN (19:00)
[2023-04-09 20:57] VITALS: BP 99/58; PULSE 62; RESP 18; TEMP 98
[2023-04-09] MEDS: CETIRIZINE HCL 10 MG TABLET PO SCH (21:00)
[2023-04-09] MEDS: SIMVASTATIN 40 MG TABLET PO SCH (21:00)
[2023-04-09 22:50] VITALS: BP_SYST 100; BP_SYST 110; BP_DIAS 68; PULSE 65; RESP 18
[2023-04-10] MEDS: ACETAMINOPHEN 325 MG TABLET PO PRN (07:05)
[2023-04-10 08:00] VITALS: RESP 18
[2023-04-10] MEDS: METOPROLOL TARTRATE 25 MG TABLET PO SCH ×2 (08:07→16:18)
[2023-04-10] MEDS: LISINOPRIL 5 MG TABLET PO SCH (08:08)
[2023-04-10 08:34] VITALS: BP 122/81; PULSE 60; RESP 18; TEMP 97.5; O2SAT 97
[2023-04-10] MEDS ORDERED: TAMSULOSIN HCL 0.4 MG CAPSULE PO SCH (09:00)
[2023-04-10] MEDS: APIXABAN 5 MG TABLET PO SCH ×2 (09:00→16:18)
[2023-04-10] MEDS: ESCITALOPRAM OXALATE 10 MG TABLET PO SCH ×2 (10:06→16:18)
[2023-04-10] MEDS: LORazepam 1 MG TABLET PO PRN ×2 (16:19→20:14)
[2023-04-10 20:08] VITALS: BP 128/82; PULSE 94; RESP 18; TEMP 97.6; O2SAT 98
[2023-04-10] MEDS: SIMVASTATIN 40 MG TABLET PO SCH (20:14)
[2023-04-10] MEDS: CETIRIZINE HCL 10 MG TABLET PO SCH (20:14)
[2023-04-11] MEDS: LORazepam 1 MG TABLET PO PRN ×4 (00:40→20:33)
[2023-04-11] MEDS: ACETAMINOPHEN 325 MG TABLET PO PRN (00:40)
[2023-04-11] MEDS: APIXABAN 5 MG TABLET PO SCH ×2 (08:33→17:08)
[2023-04-11 08:34] VITALS: BP 108/73; PULSE 63; RESP 18; TEMP 97.5; O2SAT 94
[2023-04-11] MEDS: METOPROLOL TARTRATE 25 MG TABLET PO SCH ×2 (08:35→17:08)
[2023-04-11] MEDS: ESCITALOPRAM OXALATE 10 MG TABLET PO SCH ×2 (08:35→17:00)
[2023-04-11] MEDS: LISINOPRIL 5 MG TABLET PO SCH (08:35)
[2023-04-11 20:20] VITALS: BP 110/64; PULSE 70; RESP 18; TEMP 97.6; O2SAT 98
[2023-04-11] MEDS: SIMVASTATIN 40 MG TABLET PO SCH (20:33)
[2023-04-11] MEDS: CETIRIZINE HCL 10 MG TABLET PO SCH (20:33)
[2023-04-11] MEDS ORDERED: TAMSULOSIN HCL 0.4 MG CAPSULE PO SCH (21:00)
[2023-04-12 08:31] VITALS: RESP 18
[2023-04-12] MEDS: APIXABAN 5 MG TABLET PO SCH (09:20)
[2023-04-12] MEDS: ESCITALOPRAM OXALATE 10 MG TABLET PO SCH (09:21)
[2023-04-12] MEDS: METOPROLOL TARTRATE 25 MG TABLET PO SCH (09:21)
[2023-04-12] MEDS: LISINOPRIL 5 MG TABLET PO SCH (09:21)
[2023-04-12] MEDS: LORazepam 1 MG TABLET PO PRN (11:17)
[2023-04-12] MEDS ORDERED: ESCI-8 PO (12:27)
== END 2023-04-12 14:15 | disposition home or self-care (01) | DRG 751 ==
LOC: EMS 20:21 → B3A 04-09 15:50
PROVIDERS: ADMIT Psychiatry & Neurology Psychiatry; ATTEND Psychiatry & Neurology Psychiatry
DX: F33.2 Major depressive disorder, recurrent severe without psychotic features (principal); R45.851 Suicidal ideations; I10 Essential (primary) hypertension; I48.91 Unspecified atrial fibrillation; Z20.822 Contact with and (suspected) exposure to COVID-19; Z79.01 Long term (current) use of anticoagulants; Z79.899 Other long term (current) drug therapy; Z88.8 Allergy status to other drugs, medicaments and biological substances; Z59.00 Homelessness unspecified
CPT/HCPCS: 80053; 80307; 81003; 85025; 99285; G0480

== ENCOUNTER 2023-05-06 23:28 | Inpatient (IN) | payer MEDICAID ==
[~2023-05-06] VITALS: Ht 177.8 cm; Wt 93.0 kg
[~2023-05-06 23:28] MED LIST changes: +CETI10TA58 PO; -SIMV-259 PO; +SIMV-46 PO
[2023-05-07] MEDS ORDERED: OLANZapine 5 MG RAPDIS TABLET PO PRN (03:00)
[2023-05-07] MEDS ORDERED: ZOLPIDEM TARTRATE 10 MG TABLET PO PRN (03:00)
[2023-05-07 04:00] LABS: APPEARANCE,URINE CLEAR (CLEAR); BILIRUBIN,URINE NEGATIVE (NEGATIVE); COLOR,URINE LIGHT YELLOW (YELLOW); GLUCOSE, URINE (UA) NEGATIVE (NEGATIVE); KETONES,URINE NEGATIVE (NEGATIVE); LEUKOCYTE ESTERASE ,URINE NEGATIVE (NEGATIVE); NITRATE,URINE NEGATIVE (NEGATIVE); OCCULT BLOOD,URINE NEGATIVE (NEGATIVE); PROTEIN,URINE NEGATIVE (NEGATIVE); SPECIFIC GRAVITIY, URINE 1.032 (1.003-1.030); UROBILINOGEN,URINE <=1.0 mg/dL (<=1.0)
[2023-05-07 04:05] LABS: ALCOHOL, URINE DRUG SCREEN NEGATIVE (NEGATIVE); AMPHET/METH SCREEN,URINE NEGATIVE (NEGATIVE); BARBITURATE SCREEN, URINE NEGATIVE (NEGATIVE); BENZODIAZEPINES SCREEN,URINE POSITIVE (NEGATIVE); CANNABINOID SCREEN,URINE POSITIVE (NEGATIVE); COCAINE SCREEN,URINE NEGATIVE (NEGATIVE); METHADONE SCREEN, URINE NEGATIVE (NEGATIVE); OPIATE SCREEN,URINE NEGATIVE (NEGATIVE); PHENCYCLIDINE SCREEN,URINE NEGATIVE (NEGATIVE)
[2023-05-07] MEDS ORDERED: METOPROLOL TARTRATE 25 MG TABLET PO ONE (09:00)
[2023-05-07] MEDS ORDERED: APIXABAN 5 MG TABLET PO ONE (09:00)
[2023-05-07 12:50] LABS: COVID AG,FIA SOURCE NASAL SWAB
[2023-05-07 13:16] LABS: SARS-COV2 (COVID) ANTIGEN,FIA Negative (Negative)
[2023-05-07] MEDS: LORazepam 1 MG TABLET PO PRN ×2 (16:49→23:33)
[2023-05-07 23:45] VITALS: BP 117/81; PULSE 70; RESP 18; TEMP 97.8
[2023-05-08] MEDS ORDERED: PETROLATUM,WHITE 28 GM JELLY TP PRN (06:45)
[2023-05-08] MEDS ORDERED: DOCUSATE SODIUM 100 MG CAPSULE PO PRN (06:45)
[2023-05-08] MEDS ORDERED: MAG HYDROX/ALUMINUM HYD/SIMETH ES 30 ML SUSPENSION UDCUP PO PRN (06:45)
[2023-05-08] MEDS ORDERED: NICOTINE 14 MG/24 HOUR PATCH TD PRN (06:45)
[2023-05-08] MEDS ORDERED: IBUPROFEN 400 MG TABLET PO PRN (06:45)
[2023-05-08] MEDS ORDERED: MAGNESIUM HYDROXIDE SUSPENSION 30 ML UDCUP PO PRN (06:45)
[2023-05-08] MEDS ORDERED: ACETAMINOPHEN 325 MG TABLET PO PRN (06:45)
[2023-05-08] MEDS ORDERED: GuaiFENesin/D-METHORPHAN [SUGAR-FREE] 200-20MG/10 ML SYRUP UDCUP PO PRN (06:45)
[2023-05-08] MEDS ORDERED: ALBUTEROL SULFATE HFA 90 MCG/PUFF 8 GM INHALER IH PRN (06:45)
[2023-05-08] MEDS ORDERED: LOPERAMIDE HCL 2 MG CAPSULE PO PRN (06:45)
[2023-05-08] MEDS ORDERED: ONDANSETRON HCL 4 MG TABLET PO PRN (06:45)
[2023-05-08] MEDS ORDERED: CloNIDine HCL 0.1 MG TABLET PO PRN (06:45)
[2023-05-08] MEDS ORDERED: TAMSULOSIN HCL 0.4 MG CAPSULE PO SCH (09:00)
[2023-05-08 10:00] VITALS: BP 132/85; PULSE 65; RESP 18; TEMP 97.5
[2023-05-08] MEDS: APIXABAN 5 MG TABLET PO SCH ×2 (10:05→16:38)
[2023-05-08] MEDS: LISINOPRIL 5 MG TABLET PO SCH (10:06)
[2023-05-08] MEDS: METOPROLOL TARTRATE 25 MG TABLET PO SCH ×2 (10:06→16:37)
[2023-05-08] MEDS: CETIRIZINE HCL 10 MG TABLET PO SCH (13:50)
[2023-05-08] MEDS ORDERED: ESCITALOPRAM OXALATE 10 MG TABLET PO ONE (14:00)
[2023-05-08] MEDS: ESCITALOPRAM OXALATE 10 MG TABLET PO SCH (16:40)
[2023-05-08] MEDS ORDERED: ESCITALOPRAM OXALATE 10 MG TABLET PO SCH (17:00)
[2023-05-08] MEDS: SIMVASTATIN 40 MG TABLET PO SCH (20:47)
[2023-05-08] MEDS: TAMSULOSIN HCL 0.4 MG CAPSULE PO SCH (20:48)
[2023-05-08 22:32] VITALS: BP 109/82; PULSE 72; RESP 18; TEMP 97.6
[2023-05-09 08:57] VITALS: BP 113/71; PULSE 53; RESP 18; TEMP 97
[2023-05-09] MEDS: APIXABAN 5 MG TABLET PO SCH ×2 (09:04→16:54)
[2023-05-09] MEDS: ESCITALOPRAM OXALATE 10 MG TABLET PO SCH ×2 (09:04→16:55)
[2023-05-09] MEDS: CETIRIZINE HCL 10 MG TABLET PO SCH (09:05)
[2023-05-09] MEDS: LISINOPRIL 5 MG TABLET PO SCH (09:05)
[2023-05-09] MEDS: METOPROLOL TARTRATE 25 MG TABLET PO SCH ×2 (09:05→16:55)
[2023-05-09] MEDS: LORazepam 1 MG TABLET PO PRN ×2 (14:10→23:47)
[2023-05-09 17:00] VITALS: BP 107/61; PULSE 75; RESP 18
[2023-05-09] MEDS: TAMSULOSIN HCL 0.4 MG CAPSULE PO SCH (21:27)
[2023-05-09] MEDS: SIMVASTATIN 40 MG TABLET PO SCH (21:27)
[2023-05-09 21:50] VITALS: BP 120/80; PULSE 78; RESP 18; TEMP 97.8
[2023-05-10] MEDS: METOPROLOL TARTRATE 25 MG TABLET PO SCH ×2 (08:46→16:45)
[2023-05-10] MEDS: ESCITALOPRAM OXALATE 10 MG TABLET PO SCH ×3 (08:46→16:48)
[2023-05-10] MEDS: APIXABAN 5 MG TABLET PO SCH ×2 (08:46→16:45)
[2023-05-10] MEDS: LISINOPRIL 5 MG TABLET PO SCH (08:46)
[2023-05-10] MEDS: CETIRIZINE HCL 10 MG TABLET PO SCH (08:46)
[2023-05-10 09:44] LABS: COVID AG,FIA SOURCE NASAL SWAB
[2023-05-10 10:10] LABS: SARS-COV2 (COVID) ANTIGEN,FIA Negative (Negative)
[2023-05-10 10:48] VITALS: BP 113/72; PULSE 57; RESP 20; TEMP 97.4
[2023-05-10] MEDS: LORazepam 1 MG TABLET PO PRN (14:28)
== END 2023-05-10 17:57 | disposition home or self-care (01) | DRG 751 ==
LOC: EMS 23:28 → 3EI 05-07 14:30
PROVIDERS: ADMIT Psychiatry & Neurology Psychiatry; ATTEND Psychiatry & Neurology Psychiatry
PROC: GZHZZZZ Group Psychotherapy (ICD-10-PCS; principal; 2023-05-08)
PROC: GZ51ZZZ Individual Psychotherapy, Behavioral (ICD-10-PCS; 2023-05-08)
DX: F33.3 Major depressive disorder, recurrent, severe with psychotic symptoms (principal); R45.851 Suicidal ideations; F41.9 Anxiety disorder, unspecified; I10 Essential (primary) hypertension; I48.91 Unspecified atrial fibrillation; J44.9 Chronic obstructive pulmonary disease, unspecified; K21.9 Gastro-esophageal reflux disease without esophagitis; G47.00 Insomnia, unspecified; B19.20 Unspecified viral hepatitis C without hepatic coma; Z20.822 Contact with and (suspected) exposure to COVID-19; K59.00 Constipation, unspecified; Z79.899 Other long term (current) drug therapy; Z59.00 Homelessness unspecified; Z91.51 Personal history of suicidal behavior; Z79.01 Long term (current) use of anticoagulants; Z88.8 Allergy status to other drugs, medicaments and biological substances
CPT/HCPCS: 80307; 81003; 87081; 99285

== ENCOUNTER 2023-05-29 20:23 | Inpatient (IN) | payer MEDICAID ==
[~2023-05-29] VITALS: Ht 177.8 cm; Wt 92.1 kg
[2023-05-29] MEDS ORDERED: LORazepam 2 MG TABLET PO PRN (21:30)
[2023-05-29] MEDS ORDERED: OLANZapine 5 MG RAPDIS TABLET PO PRN (21:30)
[2023-05-29] MEDS ORDERED: ZOLPIDEM TARTRATE 10 MG TABLET PO PRN (21:30)
[2023-05-29 21:47] LABS: COVID AG,FIA SOURCE NASAL SWAB
[2023-05-29 22:37] LABS: SARS-COV2 (COVID) ANTIGEN,FIA Negative (Negative)
[2023-05-29 23:18] LABS: APPEARANCE,URINE CLEAR (CLEAR); BILIRUBIN,URINE NEGATIVE (NEGATIVE); COLOR,URINE LIGHT YELLOW (YELLOW); GLUCOSE, URINE (UA) NEGATIVE (NEGATIVE); KETONES,URINE NEGATIVE (NEGATIVE); LEUKOCYTE ESTERASE ,URINE NEGATIVE (NEGATIVE); NITRATE,URINE NEGATIVE (NEGATIVE); OCCULT BLOOD,URINE NEGATIVE (NEGATIVE); PH,URINE 5.5 (5.0-8.0); PROTEIN,URINE NEGATIVE (NEGATIVE); SPECIFIC GRAVITIY, URINE 1.029 (1.003-1.030); UROBILINOGEN,URINE <=1.0 mg/dL (<=1.0)
[2023-05-30 00:12] LABS: PH,URINE DRUG SCREEN 5.5 (5.0-8.0)
[2023-05-30 00:19] LABS: ALCOHOL, URINE DRUG SCREEN NEGATIVE (NEGATIVE); AMPHET/METH SCREEN,URINE NEGATIVE (NEGATIVE); BARBITURATE SCREEN, URINE NEGATIVE (NEGATIVE); BENZODIAZEPINES SCREEN,URINE POSITIVE (NEGATIVE); CANNABINOID SCREEN,URINE NEGATIVE (NEGATIVE); COCAINE SCREEN,URINE NEGATIVE (NEGATIVE); METHADONE SCREEN, URINE NEGATIVE (NEGATIVE); OPIATE SCREEN,URINE NEGATIVE (NEGATIVE); PHENCYCLIDINE SCREEN,URINE NEGATIVE (NEGATIVE)
[2023-05-30 02:41] VITALS: BP 110/80; PULSE 61; RESP 18; TEMP 97.6
[2023-05-30] MEDS ORDERED: NICOTINE 14 MG/24 HOUR PATCH TD PRN (07:00)
[2023-05-30] MEDS ORDERED: GuaiFENesin/D-METHORPHAN [SUGAR-FREE] 200-20MG/10 ML SYRUP UDCUP PO PRN (07:00)
[2023-05-30] MEDS ORDERED: PETROLATUM,WHITE 28 GM JELLY TP PRN (07:00)
[2023-05-30] MEDS ORDERED: ACETAMINOPHEN 325 MG TABLET PO PRN (07:00)
[2023-05-30] MEDS ORDERED: ALBUTEROL SULFATE HFA 90 MCG/PUFF 8 GM INHALER IH PRN (07:00)
[2023-05-30] MEDS ORDERED: DOCUSATE SODIUM 100 MG CAPSULE PO PRN (07:00)
[2023-05-30] MEDS ORDERED: MAG HYDROX/ALUMINUM HYD/SIMETH ES 30 ML SUSPENSION UDCUP PO PRN (07:00)
[2023-05-30] MEDS ORDERED: CloNIDine HCL 0.1 MG TABLET PO PRN (07:00)
[2023-05-30] MEDS ORDERED: ONDANSETRON HCL 4 MG TABLET PO PRN (07:00)
[2023-05-30] MEDS ORDERED: MAGNESIUM HYDROXIDE SUSPENSION 30 ML UDCUP PO PRN (07:00)
[2023-05-30] MEDS ORDERED: LOPERAMIDE HCL 2 MG CAPSULE PO PRN (07:00)
[2023-05-30] MEDS ORDERED: IBUPROFEN 400 MG TABLET PO PRN (07:00)
[2023-05-30] MEDS: APIXABAN 5 MG TABLET PO SCH ×2 (08:13→16:14)
[2023-05-30] MEDS: CETIRIZINE HCL 10 MG TABLET PO PRN ×2 (08:13→09:28)
[2023-05-30] MEDS: METOPROLOL TARTRATE 25 MG TABLET PO SCH ×2 (08:15→16:15)
[2023-05-30] MEDS: LISINOPRIL 5 MG TABLET PO SCH (08:17)
[2023-05-30 09:43] VITALS: BP 127/67; PULSE 60; RESP 20; TEMP 97.7
[2023-05-30] MEDS: ESCITALOPRAM OXALATE 10 MG TABLET PO SCH ×2 (12:08→16:14)
[2023-05-30 16:06] VITALS: BP 126/81; PULSE 75; RESP 20; TEMP 98
[2023-05-30 20:30] VITALS: BP 120/80; PULSE 78; RESP 18; TEMP 97.8
[2023-05-30] MEDS: TAMSULOSIN HCL 0.4 MG CAPSULE PO SCH (20:42)
[2023-05-30] MEDS: SIMVASTATIN 40 MG TABLET PO SCH (20:42)
[2023-05-31] MEDS: ESCITALOPRAM OXALATE 10 MG TABLET PO SCH ×2 (08:49→16:18)
[2023-05-31] MEDS: LISINOPRIL 5 MG TABLET PO SCH (08:49)
[2023-05-31] MEDS: APIXABAN 5 MG TABLET PO SCH ×2 (08:50→16:17)
[2023-05-31] MEDS: METOPROLOL TARTRATE 25 MG TABLET PO SCH ×2 (08:50→16:18)
[2023-05-31] MEDS: CETIRIZINE HCL 10 MG TABLET PO PRN (08:52)
[2023-05-31 08:58] VITALS: BP 136/78; PULSE 66; RESP 18; TEMP 98
[2023-05-31] MEDS: SIMVASTATIN 40 MG TABLET PO SCH (21:19)
[2023-05-31] MEDS: TAMSULOSIN HCL 0.4 MG CAPSULE PO SCH (21:19)
[2023-05-31 22:25] VITALS: BP 124/55; PULSE 56; RESP 19; TEMP 96.8
[2023-06-01] MEDS: APIXABAN 5 MG TABLET PO SCH (08:26)
[2023-06-01] MEDS: METOPROLOL TARTRATE 25 MG TABLET PO SCH (08:27)
[2023-06-01] MEDS: LISINOPRIL 5 MG TABLET PO SCH (08:28)
[2023-06-01] MEDS: ESCITALOPRAM OXALATE 10 MG TABLET PO SCH (08:28)
[2023-06-01] MEDS: CETIRIZINE HCL 10 MG TABLET PO PRN (08:43)
[2023-06-01 09:30] VITALS: BP 142/76; PULSE 73; RESP 18; TEMP 97
[2023-06-01] MEDS ORDERED: ESCI-8 PO ×2 (10:27→11:58)
[2023-06-01] MEDS ORDERED: METO25 PO (11:58)
[2023-06-01] MEDS ORDERED: APIX5TAB PO (11:58)
[2023-06-01] MEDS ORDERED: SIMV-261 PO (11:58)
[2023-06-01] MEDS ORDERED: LISI-892 PO (11:58)
[2023-06-01] MEDS ORDERED: TAMS0.4C94 PO (11:58)
== END 2023-06-01 13:47 | disposition home or self-care (01) | DRG 751 ==
LOC: EMS 20:25 → 3EI 23:46
PROVIDERS: ADMIT Psychiatry & Neurology Psychiatry; ATTEND Psychiatry & Neurology Psychiatry
PROC: GZHZZZZ Group Psychotherapy (ICD-10-PCS; principal; 2023-05-30)
DX: F33.3 Major depressive disorder, recurrent, severe with psychotic symptoms (principal); I48.20 Chronic atrial fibrillation, unspecified; R45.851 Suicidal ideations; E78.5 Hyperlipidemia, unspecified; G47.00 Insomnia, unspecified; I10 Essential (primary) hypertension; I25.10 Atherosclerotic heart disease of native coronary artery without angina pectoris; J44.9 Chronic obstructive pulmonary disease, unspecified; Z20.822 Contact with and (suspected) exposure to COVID-19; K21.9 Gastro-esophageal reflux disease without esophagitis; N40.0 Benign prostatic hyperplasia without lower urinary tract symptoms; Z59.00 Homelessness unspecified; Z79.899 Other long term (current) drug therapy; Z88.8 Allergy status to other drugs, medicaments and biological substances; Z79.01 Long term (current) use of anticoagulants
CPT/HCPCS: 80307; 81003; 87081; 93005; 99285; Z7502; Z7610